=== PATIENT | female | born 1935 | race Caucasian/White ===

== ENCOUNTER 2018-06-22 21:09 | Emergency (ER) | payer MEDICARE, OTHER ==
[2018-06-22] MEDS ORDERED: Albuterol 0.083% 2.5 MG/3 ML Neb Soln NEB ONE (21:37)
--- NOTE | 2018-06-22 21:44 | EDM.PDOC ---
ED HPI GENERAL MEDICAL PROBLEM - General Chief Complaint: Respiratory Problem Stated Complaint: SOB Time Seen by Provider: 06/22/18 21:39 Source of Information: Reports: Patient, Family History Limitations: Reports: No Limitations - History of Present Illness INITIAL COMMENTS - FREE TEXT/NARRATIVE: Presents with SOB x 2 days with slight cough. No h/o CAD, HF or COPD. Denies chest pain. Onset Date: 06/21/18 Duration: Day(s): (2) Severity: Moderate Improves with: Reports: None Worsens with: Reports: None - Related Data Allergies Allergy/AdvReac Type Severity Reaction Status Date / Time Sulfa (Sulfonamide Allergy Cannot Verified 06/22/18 21:30 Antibiotics) Remember Home Meds: Home Meds Amitriptyline [Elavil] 20 mg PO BEDTIME 03/26/16 [History] Aspirin [Halfprin] 81 mg PO DAILY 03/26/16 [History] Calcium Carbonate [Calcium] 500 mg PO BID 03/26/16 [History] ClomiPRAMINE [ClomiPRAMINE HCl] 25 mg PO BEDTIME 03/26/16 [History] ClomiPRAMINE [ClomiPRAMINE HCl] 50 mg PO BID 03/26/16 [History] Ferrous Gluconate 325 mg PO DAILY 03/26/16 [History] Levothyroxine 25 mcg PO DAILY@0600 03/26/16 [History] Melatonin 10 mg PO BEDTIME 03/26/16 [History] Multivitamin [Daily Violeta] 1 tab PO DAILY 03/26/16 [History] Omeprazole 20 mg PO ACBREAKFAST 03/26/16 [History] Simvastatin [Zocor] 20 mg PO BEDTIME 03/26/16 [History] amLODIPine [Norvasc] 5 mg PO DAILY 03/26/16 [History] SitaGLIPtin [Januvia] 25 mg PO DAILY #30 tablet 03/31/16 [Rx] Past Medical History Cardiovascular History: Reports: High Cholesterol, Hypertension, Other (See Below) (Heart murmur). Denies: CAD, Heart Failure, [place] Respiratory History: Reports: None Psychiatric History: Reports: Depression Endocrine/Metabolic History: Reports: Diabetes, Type II, Hypothyroidism Dermatologic History: Reports: Eczema, Other (See Below) Other Dermatologic History: had for a long time - Infectious Disease History Infectious Disease History: Reports: Chicken Pox, Influenza, Measles - Past Surgical History HEENT Surgical History: Reports: Cataract Surgery Social & Family History - Family History Family Medical History: Noncontributory - Tobacco Use Smoking Status *Q: Never Smoker ED ROS GENERAL - Review of Systems Review Of Systems: ROS reveals no pertinent complaints other than HPI. ED EXAM, GENERAL - Physical Exam Exam: See Below Exam Limited By: No Limitations General Appearance: Alert, WD/WN, No Apparent Distress Ears: Normal External Exam Nose: Normal Inspection Throat/Mouth: No Airway Compromise Head: Atraumatic, Normocephalic Neck: Full Range of Motion Respiratory/Chest: No Respiratory Distress, Decreased Breath Sounds, Wheezing Cardiovascular: Regular Rate, Rhythm, No Edema, Systolic Murmur GI/Abdominal: No Distention Extremities: Normal Range of Motion, No Pedal Edema Neurological: Alert, Normal Cognition, No Motor/Sensory Deficits Skin Exam: Warm, Dry, Intact, Normal Color EKG INTERPRETATION EKG Date: 06/22/18 Time: 22:18 Rhythm: NSR Rate (Beats/Min): 72 [place]: Normal P-Wave: Present QRS: Normal ST-T: Normal QT: Normal Comparison: No Change (03/25/16) Course - Orders/Labs/Meds Orders: Active Orders 24 hr Category Date Time Status EKG Documentation Completion [RC] ASDIRECTED Care 06/22/18 21:37 Active RT Aerosol Therapy [RC] ASDIRECTED Care 06/22/18 21:37 Active CXR [Chest 2V] [CR] Stat Exams 06/22/18 21:12 Taken CULTURE BLOOD [BC] Urgent Lab 06/22/18 21:45 Received CULTURE BLOOD [BC] Urgent Lab 06/22/18 21:50 Received Blood Culture x2 Reflex Set [OM.PC] Urgent Oth 06/22/18 21:37 Ordered EKG 12 Lead [EK] Stat Ther 06/22/18 21:36 Ordered Labs: Laboratory Tests 06/22/18 06/22/18 06/22/18 Range/Units 21:45 21:45 21:45 WBC 7.2 (4.5-12.0) X10-3/uL RBC 3.79 (3.23-5.20) x10(6)uL Hgb 11.8 (11.5-15.5) g/dL Hct 34.3 (30.0-51.3) % MCV 90.5 (80-96) fL MCH 31.1 (27.7-33.6) pg MCHC 34.4 (32.2-35.4) g/dL RDW 13.3 (11.5-15.5) % Plt Count 213 (125-369) X10(3)uL MPV 8.4 (7.4-10.4) fL Neut % (Auto) 52.9 (46-82) % Lymph % (Auto) 31.6 (13-37) % [place] % (Auto) 10.7 (4-12) % Eos % (Auto) 4 (1.0-5.0) % Baso % (Auto) 1 (0-2) % Neut # (Auto) 3.8 (1.6-8.3) # Lymph # (Auto) 2.3 (0.6-5.0) # [place] # (Auto) 0.8 (0.0-1.3) # Eos # (Auto) 0.3 (0.0-0.8) # Baso # (Auto) 0.0 (0.0-0.2) # Sodium 134 L (135-145) mmol/L Potassium 4.5 (3.5-5.3) mmol/L Chloride 99 L (100-110) mmol/L Carbon Dioxide 28 (21-32) mmol/L BUN 37 H (7-18) mg/dL Creatinine 0.9 (0.55-1.02) mg/dL Est Cr Clr Drug Dosing TNP Estimated GFR (MDRD) > 60 (>60) BUN/Creatinine Ratio 41.1 H (9-20) Glucose 185 H (80-116) mg/dL Calcium 8.9 (8.6-10.2) mg/dL Total Bilirubin 0.2 (0.1-1.3) mg/dL AST 15 (5-25) IU/L ALT 23 (12-36) U/L Alkaline Phosphatase 63 (56-112) IU/L Troponin I < 0.017 L (<0.017-0.056) ng/mL NT-Pro-B Natriuret Pep 185 (<=450) pg/mL Total Protein 7.4 (6.0-8.0) g/dL Albumin 3.4 (3.2-4.6) g/dL Globulin 4.0 g/dL Albumin/Globulin Ratio 0.9 Meds: Medications Discontinued Medications Generic Name Dose Route Start Last Admin Trade Name Freq PRN Reason Stop Dose Admin Albuterol 2.5 mg 06/22/18 21:37 Proventil Neb Soln NEB 06/22/18 21:38 ONETIME ONE - Radiology Interpretation Free Text/Narrative:: CXR: NAD - Re-Assessments/Exams Free Text/Narrative Re-Assessment/Exam: 06/22/18 22:39 Symptoms resolved. Lungs CTA bilaterally on re-examination. 06/22/18 22:42 Ventolin inhaler dispensed in the ED Departure - Departure Time of Disposition: 22:40 Disposition: Home, Self-Care 01 Condition: Good Clinical Impression: Bronchospasm - Discharge Information *PRESCRIPTION DRUG MONITORING PROGRAM REVIEWED*: No *COPY OF PRESCRIPTION DRUG MONITORING REPORT IN PATIENT EARNESTINE: Not Applicable Instructions: Bronchospasm, Adult, [id number] Referrals: Jhoan Rivera MD [Primary Care Provider] - Forms: ED Department Discharge Additional Instructions: Use the inhaler 2 puffs every 4 hours as needed for shortness of breath. Follow up with your doctor in 2-3 days. Return to the ER if symptoms worsen. - My Orders Last 24 Hours: My Active Orders 06/22/18 21:12 CXR [Chest 2V] [CR] Stat 06/22/18 21:36 EKG 12 Lead [EK] Stat 06/22/18 21:37 EKG Documentation Completion [RC] ASDIRECTED RT Aerosol Therapy [RC] ASDIRECTED Blood Culture x2 Reflex Set [OM.PC] Urgent 06/22/18 21:45 CULTURE BLOOD [BC] Urgent 06/22/18 21:50 CULTURE BLOOD [BC] Urgent - Assessment/Plan Last 24 Hours: My Active Orders 06/22/18 21:12 CXR [Chest 2V] [CR] Stat 06/22/18 21:36 EKG 12 Lead [EK] Stat 06/22/18 21:37 EKG Documentation Completion [RC] ASDIRECTED RT Aerosol Therapy [RC] ASDIRECTED Blood Culture x2 Reflex Set [OM.PC] Urgent 06/22/18 21:45 CULTURE BLOOD [BC] Urgent 06/22/18 21:50 CULTURE BLOOD [BC] Urgent
[2018-06-23 00:10] VITALS: BP 134/61
== END 2018-06-22 22:58 | disposition home or self-care (01) ==
LOC: FB.ED 21:09
DX: J98.01 Acute bronchospasm (principal); I10 Essential (primary) hypertension; E11.9 Type 2 diabetes mellitus without complications; E03.9 Hypothyroidism, unspecified; Z88.2 Allergy status to sulfonamides; Z79.82 Long term (current) use of aspirin; Z79.899 Other long term (current) drug therapy
CPT/HCPCS: 36415; 71046; 80053; 83880; 84484; 85025; 87040; 93005; 94640; 99285

== ENCOUNTER 2018-12-25 10:32 | Inpatient (IN) | payer MEDICARE ==
[2018-12-25] MEDS ORDERED: Albuterol 0.083% 2.5 MG/3 ML Neb Soln NEB ONE (10:53)
--- NOTE | 2018-12-25 10:57 | EDM.PDOC ---
ED HPI GENERAL MEDICAL PROBLEM - General Chief Complaint: Respiratory Problem Stated Complaint: SOB Time Seen by Provider: 12/25/18 10:53 Source of Information: Reports: Patient History Limitations: Reports: No Limitations - History of Present Illness INITIAL COMMENTS - FREE TEXT/NARRATIVE: Presents with SOB x 3 days, denies chest discomfort or cough. No F/C. Onset Date: 12/22/18 Duration: Day(s): (3) Severity: Moderate - Related Data Allergies Allergy/AdvReac Type Severity Reaction Status Date / Time Sulfa (Sulfonamide Allergy Cannot Verified 12/25/18 12:51 Antibiotics) Remember Home Meds: Home Meds Amitriptyline [Elavil] 20 mg PO BEDTIME 03/26/16 [History] Aspirin [Halfprin] 81 mg PO DAILY 03/26/16 [History] ClomiPRAMINE [ClomiPRAMINE HCl] 25 mg PO BEDTIME 03/26/16 [History] ClomiPRAMINE [ClomiPRAMINE HCl] 50 mg PO BID 03/26/16 [History] Ferrous Gluconate 325 mg PO WITHBREAKFAST 03/26/16 [History] Levothyroxine 25 mcg PO DAILY@0600 03/26/16 [History] Multivitamin [Daily Violeta] 1 tab PO DAILY 03/26/16 [History] Omeprazole 20 mg PO ACBREAKFAST 03/26/16 [History] Simvastatin [Zocor] 20 mg PO BEDTIME 03/26/16 [History] amLODIPine [Norvasc] 5 mg PO DAILY 03/26/16 [History] SitaGLIPtin [Januvia] 25 mg PO DAILY #30 tablet 03/31/16 [Rx] Albuterol [Ventolin HFA] 2 puff INH Q4H PRN #1 inhaler 06/22/18 [Rx] Acetaminophen [Tylenol] 325 - 650 mg PO Q4H PRN 12/25/18 [History] Calcium Carbonate/Vitamin D3 [Calcium 600 + Vit D 200] 1 tab PO BIDMEALS [History] Ciclopirox [Loprox 0.77% Crm] 1 applic TOP BID PRN 12/25/18 [History] Enalapril [Vasotec] 5 mg PO DAILY 12/25/18 [History] Fluocinolone Acetonide 1 applic TOP BID PRN 12/25/18 [History] Fluorometholone [Fluorometholone 0.1% Ophth Susp] 1 drop EYEBOTH DAILY 12/25/18 [History] Latanoprost [Xalatan 0.005% Ophth Soln] 1 drop EYEBOTH BEDTIME 12/25/18 [History ] Loperamide HCl [Loperamide] 2 - 4 mg PO ASDIRECTED PRN 12/25/18 [History] Melatonin 6 mg PO BEDTIME 12/25/18 [History] Polyethylene Glycol 3350 [MiraLAX] 17 gm PO DAILY PRN 12/25/18 [History] Potassium Chloride 10 meq PO DAILY 12/25/18 [History] Triamcinolone Acetonide [Triamcinolone Acetonide 0.1% Crm] 1 applic TOP TID PRN 12/25/18 [History] Past Medical History Cardiovascular History: Reports: High Cholesterol, Hypertension, Other (See Below) (Heart murmur). Denies: CAD, Heart Failure, [place] Respiratory History: Reports: None Psychiatric History: Reports: Depression Endocrine/Metabolic History: Reports: Diabetes, Type II, Hypothyroidism Dermatologic History: Reports: Eczema, Other (See Below) Other Dermatologic History: had for a long time - Infectious Disease History Infectious Disease History: Reports: Chicken Pox, Influenza, Measles - Past Surgical History HEENT Surgical History: Reports: Cataract Surgery Social & Family History - Family History Family Medical History: Noncontributory - Tobacco Use Smoking Status *Q: Former Smoker Tobacco Use Within Last Twelve Months: No ED ROS GENERAL - Review of Systems Review Of Systems: ROS reveals no pertinent complaints other than HPI. ED EXAM, GENERAL - Physical Exam Exam: See Below Exam Limited By: No Limitations General Appearance: Alert, WD/WN, No Apparent Distress Ears: Normal External Exam Nose: Normal Inspection Throat/Mouth: No Airway Compromise Head: Atraumatic, Normocephalic Neck: Supple Respiratory/Chest: No Respiratory Distress, Lungs Clear, Normal Breath Sounds Cardiovascular: Regular Rate, Rhythm, No Murmur GI/Abdominal: Soft, Non-Tender, No Distention Extremities: Normal Range of Motion, No Pedal Edema, Other (mild bilat calf tenderness) Neurological: Alert, Normal Cognition, No Motor/Sensory Deficits Psychiatric: Normal Affect, Normal Mood Skin Exam: Warm, Dry, Intact EKG INTERPRETATION EKG Date: 12/25/18 Time: 10:54 Rhythm: A-Fib Rate (Beats/Min): 74 [place]: Normal P-Wave: Absent QRS: Normal ST-T: Other (borderline repol abnormality diffuse leads) QT: Normal Course - Vital Signs Last Recorded V/S: Last Vital Signs Temp Pulse 75 12/25/18 11:32 Resp BP 152/56 H 12/25/18 12:31 Pulse Ox 98 12/25/18 11:32 - Orders/Labs/Meds Orders: Active Orders 24 hr Category Date Time Status Admission Diagnosis [ADT] Stat ADT 12/25/18 13:48 Ordered EKG Documentation Completion [RC] ASDIRECTED Care 12/25/18 10:52 Active CULTURE BLOOD [BC] Urgent Lab 12/25/18 13:38 Received CULTURE BLOOD [BC] Urgent Lab 12/25/18 14:10 Received Sodium Chloride 0.9% [Saline Flush] Med 12/25/18 10:52 Active 10 ml FLUSH ASDIRECTED PRN Blood Culture x2 Reflex Set [OM.PC] Urgent Oth 12/25/18 13:38 Ordered Saline Lock Insert [OM.PC] Routine Oth 12/25/18 10:52 Ordered EKG 12 Lead [EK] Stat Ther 12/25/18 10:51 Ordered Medication Orders Albuterol (Proventil Neb Soln) 2.5 mg NEB Q4H PRN PRN Reason: Shortness of Breath Amitriptyline HCl (Elavil) 20 mg PO BEDTIME [facility] Amlodipine Besylate (Norvasc) 5 mg PO DAILY [facility] Aspirin (Halfprin) 81 mg PO DAILY [facility] Azithromycin (Zithromax) 250 mg PO DAILY@1400 [facility] Stop: 12/30/18 14:01 Ceftriaxone Sodium (Rocephin) 2 gm IVPUSH Q24H [facility] Ciclopirox Olamine (Loprox 0.77% Crm) 0 gm TOP BID PRN PRN Reason: rash/itching Fluorometholone (Flarex 0.1% Ophth Susp) 0 ml EYEBOTH DAILY [facility] Furosemide (Lasix) 20 mg IVPUSH DAILY [facility] Latanoprost (Xalatan 0.005% Ophth Soln) 0 ml EYEBOTH BEDTIME [facility] Levothyroxine Sodium (Levothyroxine) 25 mcg PO DAILY@0600 [facility] Lisinopril (Prinivil) 2.5 mg PO DAILY [facility] Melatonin (Melatonin) 6 mg PO BEDTIME [facility] Multivitamins/Minerals/Vitamin C (Tab-A-Violeta) 1 tab PO DAILY JOHN Non-Formulary Medication (Clomipramine [Clomipramine Hcl]) 25 mg PO BEDTIME JOHN Non-Formulary Medication (Clomipramine [Clomipramine Hcl]) 50 mg PO BID [facility] Pantoprazole Sodium (Protonix) 40 mg PO DAILY@0600 [facility] Potassium Chloride (Klor-Con 10) 10 meq PO DAILY [facility] Rivaroxaban (Xarelto) 15 mg PO WITHDINNER JOHN Simvastatin (Zocor) 20 mg PO BEDTIME [facility] Sitagliptin Phosphate (Januvia) 25 mg PO DAILY [facility] Sodium Chloride (Saline Flush) 10 ml FLUSH ASDIRECTED PRN PRN Reason: Keep Vein Open Last Admin: 12/25/18 12:48 Dose: 10 ml Admin: 12/25/18 11:43 Dose: 10 ml Labs: Laboratory Tests 12/25/18 12/25/18 12/25/18 Range/Units 11:15 11:15 11:15 WBC 9.4 (4.5-12.0) X10-3/uL RBC 3.79 (3.23-5.20) x10(6)uL Hgb 11.5 (11.5-15.5) g/dL Hct 34.8 (30.0-51.3) % MCV 91.7 (80-96) fL MCH 30.4 (27.7-33.6) pg MCHC 33.1 (32.2-35.4) g/dL RDW 14.1 (11.5-15.5) % Plt Count 224 (125-369) X10(3)uL MPV 8.4 (7.4-10.4) fL Neut % (Auto) 79.3 (46-82) % Lymph % (Auto) 11.1 L (13-37) % [place] % (Auto) 7.1 (4-12) % Eos % (Auto) 2 (1.0-5.0) % Baso % (Auto) 1 (0-2) % Neut # (Auto) 7.5 (1.6-8.3) # Lymph # (Auto) 1.0 (0.6-5.0) # [place] # (Auto) 0.7 (0.0-1.3) # Eos # (Auto) 0.2 (0.0-0.8) # Baso # (Auto) 0.0 (0.0-0.2) # PT 10.4 (8.7-11.1) INR 1.07 (0.89-1.13) APTT 25.3 (24.4-33.2) SECONDS D-Dimer, Quantitative 1.08 H (0.0-0.59) mg/LFEU Sodium 135 (135-145) mmol/L Potassium 5.1 (3.5-5.3) mmol/L Chloride 99 L (100-110) mmol/L Carbon Dioxide 29 (21-32) mmol/L BUN 21 H D (7-18) mg/dL Creatinine 1.0 (0.55-1.02) mg/dL Est Cr Clr Drug Dosing TNP Estimated GFR (MDRD) 53 L (>60) BUN/Creatinine Ratio 21.0 H (9-20) Glucose 128 H (80-116) mg/dL Lactic Acid (0.4-2.2) mmol/L Calcium 9.1 (8.6-10.2) mg/dL Total Bilirubin 0.3 (0.1-1.3) mg/dL AST 14 (5-25) IU/L ALT 20 D (12-36) U/L Alkaline Phosphatase 58 (56-112) IU/L Troponin I (<0.017-0.056) ng/mL NT-Pro-B Natriuret Pep (<=450) pg/mL Total Protein 6.8 (6.0-8.0) g/dL Albumin 3.5 (3.2-4.6) g/dL Globulin 3.3 g/dL Albumin/Globulin Ratio 1.1 TSH, Ultra Sensitive (0.36-3.74) IU/mL 12/25/18 12/25/18 12/25/18 Range/Units 11:15 11:15 14:10 WBC (4.5-12.0) X10-3/uL RBC (3.23-5.20) x10(6)uL Hgb (11.5-15.5) g/dL Hct (30.0-51.3) % MCV (80-96) fL MCH (27.7-33.6) pg MCHC (32.2-35.4) g/dL RDW (11.5-15.5) % Plt Count (125-369) X10(3)uL MPV (7.4-10.4) fL Neut % (Auto) (46-82) % Lymph % (Auto) (13-37) % [place] % (Auto) (4-12) % Eos % (Auto) (1.0-5.0) % Baso % (Auto) (0-2) % Neut # (Auto) (1.6-8.3) # Lymph # (Auto) (0.6-5.0) # [place] # (Auto) (0.0-1.3) # Eos # (Auto) (0.0-0.8) # Baso # (Auto) (0.0-0.2) # PT (8.7-11.1) INR (0.89-1.13) APTT (24.4-33.2) SECONDS D-Dimer, Quantitative (0.0-0.59) mg/LFEU Sodium (135-145) mmol/L Potassium (3.5-5.3) mmol/L Chloride (100-110) mmol/L Carbon Dioxide (21-32) mmol/L BUN (7-18) mg/dL Creatinine (0.55-1.02) mg/dL Est Cr Clr Drug Dosing Estimated GFR (MDRD) (>60) BUN/Creatinine Ratio (9-20) Glucose (80-116) mg/dL Lactic Acid 1.2 (0.4-2.2) mmol/L Calcium (8.6-10.2) mg/dL Total Bilirubin (0.1-1.3) mg/dL AST (5-25) IU/L ALT (12-36) U/L Alkaline Phosphatase (56-112) IU/L Troponin I < 0.017 L (<0.017-0.056) ng/mL NT-Pro-B Natriuret Pep 1254 H* (<=450) pg/mL Total Protein (6.0-8.0) g/dL Albumin (3.2-4.6) g/dL Globulin g/dL Albumin/Globulin Ratio TSH, Ultra Sensitive 1.82 (0.36-3.74) IU/mL Meds: Medications Generic Name Dose Route Start Last Admin Trade Name Freq PRN Reason Stop Dose Admin Albuterol 2.5 mg 12/25/18 14:26 Proventil Neb Soln NEB Q4H PRN Shortness of Breath Amitriptyline HCl 20 mg 12/25/18 21:00 Elavil PO BEDTIME [facility] Amlodipine Besylate 5 mg 12/26/18 09:00 Norvasc PO DAILY [facility] Aspirin 81 mg 12/26/18 09:00 Halfprin PO DAILY [facility] Azithromycin 250 mg 12/26/18 14:00 Zithromax PO 12/30/18 14:01 DAILY@1400 [facility] Ceftriaxone Sodium 2 gm 12/25/18 14:30 Rocephin IVPUSH Q24H [facility] Ciclopirox Olamine 0 gm 12/25/18 14:22 Loprox 0.77% Crm TOP BID PRN rash/itching Fluorometholone 0 ml 12/26/18 09:00 Flarex 0.1% Ophth Susp EYEBOTH DAILY [facility] Furosemide 20 mg 12/26/18 09:00 Lasix IVPUSH DAILY [facility] Latanoprost 0 ml 12/25/18 21:00 Xalatan 0.005% Ophth Soln EYEBOTH BEDTIME [facility] Levothyroxine Sodium 25 mcg 12/26/18 06:00 Levothyroxine PO DAILY@0600 [facility] Lisinopril 2.5 mg 12/26/18 09:00 Prinivil PO DAILY [facility] Melatonin 6 mg 12/25/18 21:00 Melatonin PO BEDTIME [facility] Multivitamins/Minerals/Vitamin C 1 tab 12/26/18 09:00 Tab-A-Violeta PO DAILY [facility] Non-Formulary Medication 25 mg 12/25/18 21:00 Clomipramine [Clomipramine Hcl] PO BEDTIME [facility] Non-Formulary Medication 50 mg 12/25/18 21:00 Clomipramine [Clomipramine Hcl] PO BID [facility] Pantoprazole Sodium 40 mg 12/26/18 06:00 Protonix PO DAILY@0600 [facility] Potassium Chloride 10 meq 12/26/18 09:00 Klor-Con 10 PO DAILY [facility] Rivaroxaban 15 mg 12/25/18 18:00 Xarelto PO WITHDINNER [facility] Simvastatin 20 mg 12/25/18 21:00 Zocor PO BEDTIME [facility] Sitagliptin Phosphate 25 mg 12/26/18 09:00 Januvia PO DAILY [facility] Sodium Chloride 10 ml 12/25/18 10:52 12/25/18 12:48 Saline Flush FLUSH 10 ml ASDIRECTED PRN Administration Keep Vein Open Discontinued Medications Generic Name Dose Route Start Last Admin Trade Name Freq PRN Reason Stop Dose Admin Albuterol 2.5 mg 12/25/18 10:53 12/25/18 11:32 Proventil Neb Soln NEB 12/25/18 10:54 2.5 mg ONETIME ONE Administration Azithromycin 500 mg 12/25/18 14:19 Zithromax PO 12/25/18 14:20 ONETIME ONE Furosemide 40 mg 12/25/18 12:13 12/25/18 12:31 Lasix IVPUSH 12/25/18 12:14 40 mg NOW ONE Administration Iopamidol 100 ml 12/25/18 13:01 12/25/18 13:05 Isovue-370 (76%) IV 12/25/18 13:02 85 ml . DIRECTED ONE Administration Lisinopril 2.5 mg 12/25/18 12:17 12/25/18 12:31 Prinivil PO 12/25/18 12:18 2.5 mg .ONCE ONE Administration - Radiology Interpretation Free Text/Narrative:: CTA Chest: No pulmonary emboli. +COPD. Possible LLL infiltrate. (per Dr. Ramos) Departure - Departure Time of Disposition: 14:00 Disposition: Admitted As Inpatient 68 Condition: Fair Clinical Impression: New onset atrial fibrillation, New onset of congestive heart failure Pneumonia Qualifiers: Pneumonia type: due to unspecified organism Laterality: left Lung location: lower lobe of lung Qualified Code(s): J18.1 - Lobar pneumonia, unspecified organism - Discharge Information *PRESCRIPTION DRUG MONITORING PROGRAM REVIEWED*: No *COPY OF PRESCRIPTION DRUG MONITORING REPORT IN PATIENT EARNESTINE: Not Applicable - My Orders Last 24 Hours: My Active Orders 12/25/18 10:51 EKG 12 Lead [EK] Stat 12/25/18 10:52 EKG Documentation Completion [RC] ASDIRECTED Sodium Chloride 0.9% [Saline Flush] 10 ml FLUSH ASDIRECTED PRN Saline Lock Insert [OM.PC] Routine 12/25/18 13:38 CULTURE BLOOD [BC] Urgent Blood Culture x2 Reflex Set [OM.PC] Urgent 12/25/18 13:48 Admission Diagnosis [ADT] Stat 12/25/18 14:10 CULTURE BLOOD [BC] Urgent - Assessment/Plan Last 24 Hours: My Active Orders 12/25/18 10:51 EKG 12 Lead [EK] Stat 12/25/18 10:52 EKG Documentation Completion [RC] ASDIRECTED Sodium Chloride 0.9% [Saline Flush] 10 ml FLUSH ASDIRECTED PRN Saline Lock Insert [OM.PC] Routine 12/25/18 13:38 CULTURE BLOOD [BC] Urgent Blood Culture x2 Reflex Set [OM.PC] Urgent 12/25/18 13:48 Admission Diagnosis [ADT] Stat 12/25/18 14:10 CULTURE BLOOD [BC] Urgent
[2018-12-25] MEDS: Sodium Chloride 0.9% 10 ML Syringe FLUSH PRN ×2 (11:43→12:48)
[2018-12-25] MEDS ORDERED: Furosemide 40 MG/4 ML VIAL IVPUSH ONE (12:13)
[2018-12-25] MEDS ORDERED: Lisinopril 2.5 MG Tab PO ONE (12:17)
[2018-12-25] MEDS ORDERED: Iopamidol 755 Mg/ML 100 ML Bottle IV ONE (13:01)
--- NOTE | 2018-12-25 13:43 | CR ---
INDICATION: Short of breath. CHEST: An AP upright view of the chest was obtained 12/25/18 and compared with 06/22/18 and 03/25/16. The heart is enlarged in general. The aorta is calcified in the arch area. Overlying EKG leads are noted. A moderately severe dextroconvex scoliosis of the thoracic spine is noted, mid to lower. Findings suggesting COPD are noted. Rather heavy markings are noted at the lung bases, making it difficult to exclude areas of patchy bronchopneumonia, especially at the left costophrenic angle. No definite evidence of CHF is seen. Evidence of exogenous obesity is noted. IMPRESSION: 1. No definite acute process but difficult to exclude areas of patchy bronchopneumonia at both lung bases. Marking are somewhat heavier than previous studies at the right lung base but similar on the left. 2. COPD. 3. ASHD with cardiomegaly. 4. Scoliosis. MTDD
--- NOTE | 2018-12-25 14:05 | CT ---
INDICATION: Shortness of breath. COMPUTERIZED TOMOGRAPHY ANGIOGRAPHY OF THE CHEST WITH CONTRAST: Spiral 1.25 mm axial sections were obtained through the chest with PE protocol, utilizing 85 mL Isovue 370 at 3 mL/second, with sagittal and coronal reconstructions. Comparison chest is noted 06/22/18 and 12/25/18. Total exam DLP = 992.62 mGy- cm. Minimal patchy infiltrate - pneumonia may be present at the left lower lobe. No gross evidence of CHF is identified, although the heart is somewhat prominent in size. There are minimal coronary artery calcifications. No mediastinal mass was identified. No gross abnormality is seen in the upper abdomen, except to note arterial calcifications in the aorta, splenic artery, superior mesenteric artery, and at the origin of the celiac axis. Renal cortical scarring is noted of mild degree. There appears to have been some motion, limiting some detail of the kidneys. A dextroconvex scoliosis of moderately severe degree is noted at the mid to lower thoracic spine with dextroconcave rotoscoliosis in the lumbar spine. No evidence of pulmonary emboli or definite mass lesions could be identified in the lungs, pleural spaces, or mediastinum. IMPRESSION: 1. No evidence of PE. 2. Suggestion of minimal pneumonia and possibly pleuritis at the left lower lobe. 3. ASHD with cardiomegaly and no definite CHF. 4. Probable COPD. 5. Scoliosis. Report was called to Dr. Saul at 1340 hours on 12/25/18. [facility]
[2018-12-25] MEDS ORDERED: Azithromycin 500 MG Tab PO ONE (14:19)
[2018-12-25] MEDS ORDERED: Ciclopirox 0.77% Crm 15 GM Tube TOP PRN (14:22)
[2018-12-25] MEDS ORDERED: Albuterol 0.083% 2.5 MG/3 ML Neb Soln NEB PRN (14:26)
[2018-12-25] MEDS ORDERED: cefTRIAXone 2 GM in Sodium Chloride 0.9% 100 ML IVPUSH SCH (14:30)
[2018-12-25] MEDS ORDERED: cefTRIAXone 2 GM Vial IVPUSH SCH (14:30)
--- NOTE | 2018-12-25 17:11 | PCM.HP ---
H&P History of Present Illness - General Date of Service: 12/25/18 Admit Problem/Dx: Admission Diagnosis/Problem Admission Diagnosis/Problem CHF, Congestive heart failure Source of Information: Patient, Old Records History Limitations: Reports: No Limitations - History of Present Illness Initial Comments - Free Text/Narative: 83-year-old female complaining of shortness of breath lasting about 3 days.Sudden onset,and on exertion. Associated with some irregular heartbeat, but no upper respiratory symptoms or chest pain. She has a history of type 2 diabetes, hypertension and a heart murmur that are previously stable. The ER an EKG done revealed atrial fibrillation which is new onset, and a chest CT revealed some minimal pneumonia. - Related Data Allergies/Adverse Reactions: Allergies Allergy/AdvReac Type Severity Reaction Status Date / Time Sulfa (Sulfonamide Allergy Cannot Verified 12/25/18 12:51 Antibiotics) Remember Home Medications: Home Meds Amitriptyline [Elavil] 20 mg PO BEDTIME 03/26/16 [History] Aspirin [Halfprin] 81 mg PO DAILY 03/26/16 [History] ClomiPRAMINE [ClomiPRAMINE HCl] 25 mg PO BEDTIME 03/26/16 [History] ClomiPRAMINE [ClomiPRAMINE HCl] 50 mg PO BID 03/26/16 [History] Ferrous Gluconate 325 mg PO WITHBREAKFAST 03/26/16 [History] Levothyroxine 25 mcg PO DAILY@0600 03/26/16 [History] Multivitamin [Daily Violeta] 1 tab PO DAILY 03/26/16 [History] Omeprazole 20 mg PO ACBREAKFAST 03/26/16 [History] Simvastatin [Zocor] 20 mg PO BEDTIME 03/26/16 [History] amLODIPine [Norvasc] 5 mg PO DAILY 03/26/16 [History] SitaGLIPtin [Januvia] 25 mg PO DAILY #30 tablet 03/31/16 [Rx] Albuterol [Ventolin HFA] 2 puff INH Q4H PRN #1 inhaler 06/22/18 [Rx] Acetaminophen [Tylenol] 325 - 650 mg PO Q4H PRN 12/25/18 [History] Calcium Carbonate/Vitamin D3 [Calcium 600 + Vit D 200] 1 tab PO BIDMEALS [History] Ciclopirox [Loprox 0.77% Crm] 1 applic TOP BID PRN 12/25/18 [History] Enalapril [Vasotec] 5 mg PO DAILY 12/25/18 [History] Fluocinolone Acetonide 1 applic TOP BID PRN 12/25/18 [History] Fluorometholone [Fluorometholone 0.1% Ophth Susp] 1 drop EYEBOTH DAILY 12/25/18 [History] Latanoprost [Xalatan 0.005% Ophth Soln] 1 drop EYEBOTH BEDTIME 12/25/18 [History ] Loperamide HCl [Loperamide] 2 - 4 mg PO ASDIRECTED PRN 12/25/18 [History] Melatonin 6 mg PO BEDTIME 12/25/18 [History] Polyethylene Glycol 3350 [MiraLAX] 17 gm PO DAILY PRN 12/25/18 [History] Potassium Chloride 10 meq PO DAILY 12/25/18 [History] Triamcinolone Acetonide [Triamcinolone Acetonide 0.1% Crm] 1 applic TOP TID PRN 12/25/18 [History] Past Medical History Cardiovascular History: Reports: High Cholesterol, Hypertension, Other (See Below) (Heart murmur). Denies: CAD, Heart Failure, [place] Respiratory History: Reports: None Gastrointestinal History: Reports: Other (See Below) Other Gastrointestinal History: Colitis Genitourinary History: Reports: Urinary Incontinence [employer] History: Reports: Musculoskeletal History: Reports: Arthritis, Fracture Neurological History: Reports: TIA Psychiatric History: Reports: Depression Endocrine/Metabolic History: Reports: Diabetes, Type II, Hypothyroidism Dermatologic History: Reports: Eczema, Other (See Below) Other Dermatologic History: had for a long time - Infectious Disease History Infectious Disease History: Reports: Chicken Pox, Influenza, Measles - Past Surgical History HEENT Surgical History: Reports: Cataract Surgery Social & Family History - Family History Family Medical History: Noncontributory - Tobacco Use Smoking Status *Q: Former Smoker Second Hand Smoke Exposure: No - Caffeine Use Caffeine Use: Reports: Coffee, Soda - Recreational Drug Use Recreational Drug Use: No H&P Review of Systems - Review of Systems: Review Of Systems: ROS reveals no pertinent complaints other than HPI. Exam - Exam Exam: See Below - Vital Signs Vital Signs: Last Vital Signs Temp Pulse 75 12/25/18 11:32 Resp BP 152/56 H 12/25/18 12:31 Pulse Ox 98 12/25/18 11:32 Weight: 97.976 kg - Exam General: Alert, Oriented, 4 HEENT: PERRLA, Hearing Intact, Mucosa Moist & [place], Nares Patent, Normal Nasal Septum, Posterior Pharynx Clear, Conjunctiva Clear, EOMI, EACs Clear, TMs Clear Neck: Supple, Trachea Midline, 2 Lungs: Clear to Auscultation, Normal Respiratory Effort Cardiovascular: Irregular Rhythm, Systolic Murmur GI/Abdominal Exam: Normal Bowel Sounds, Soft, Non-Tender, No Organomegaly, No Distention, No Abnormal Bruit, No Mass, Pelvis Stable (Female) Exam: Deferred Rectal (Female) Exam: Deferred Back Exam: Normal Inspection, Full Range of Motion, NT Extremities: Normal Inspection, Normal Range of Motion, Non-Tender, No Pedal Edema, Normal Capillary Refill Skin: Warm, Dry, Intact Neurological: Cranial Nerves Intact, Reflexes Equal Bilateral Neuro Extensive - Mental Status: Alert, Oriented x3, Normal Mood/Affect, Normal Cognition Neuro Extensive - Motor, Sensory, Reflexes: CN II-XII Intact, Normal Gait, Normal Reflexes Psychiatric: Alert, Normal Affect, Normal Mood - Patient Data Lab Results Last 24 hrs: Laboratory Results - last 24 hr 12/25/18 12/25/18 12/25/18 Range/Units 11:15 11:15 11:15 WBC 9.4 (4.5-12.0) X10-3/uL RBC 3.79 (3.23-5.20) x10(6)uL Hgb 11.5 (11.5-15.5) g/dL Hct 34.8 (30.0-51.3) % MCV 91.7 (80-96) fL MCH 30.4 (27.7-33.6) pg MCHC 33.1 (32.2-35.4) g/dL RDW 14.1 (11.5-15.5) % Plt Count 224 (125-369) X10(3)uL MPV 8.4 (7.4-10.4) fL Neut % (Auto) 79.3 (46-82) % Lymph % (Auto) 11.1 L (13-37) % [place] % (Auto) 7.1 (4-12) % Eos % (Auto) 2 (1.0-5.0) % Baso % (Auto) 1 (0-2) % Neut # (Auto) 7.5 (1.6-8.3) # Lymph # (Auto) 1.0 (0.6-5.0) # [place] # (Auto) 0.7 (0.0-1.3) # Eos # (Auto) 0.2 (0.0-0.8) # Baso # (Auto) 0.0 (0.0-0.2) # PT 10.4 (8.7-11.1) INR 1.07 (0.89-1.13) APTT 25.3 (24.4-33.2) SECONDS D-Dimer, Quantitative 1.08 H (0.0-0.59) mg/LFEU Sodium 135 (135-145) mmol/L Potassium 5.1 (3.5-5.3) mmol/L Chloride 99 L (100-110) mmol/L Carbon Dioxide 29 (21-32) mmol/L BUN 21 H D (7-18) mg/dL Creatinine 1.0 (0.55-1.02) mg/dL Est Cr Clr Drug Dosing TNP Estimated GFR (MDRD) 53 L (>60) BUN/Creatinine Ratio 21.0 H (9-20) Glucose 128 H (80-116) mg/dL Lactic Acid (0.4-2.2) mmol/L Calcium 9.1 (8.6-10.2) mg/dL Total Bilirubin 0.3 (0.1-1.3) mg/dL AST 14 (5-25) IU/L ALT 20 D (12-36) U/L Alkaline Phosphatase 58 (56-112) IU/L Troponin I (<0.017-0.056) ng/mL NT-Pro-B Natriuret Pep (<=450) pg/mL Total Protein 6.8 (6.0-8.0) g/dL Albumin 3.5 (3.2-4.6) g/dL Globulin 3.3 g/dL Albumin/Globulin Ratio 1.1 TSH, Ultra Sensitive (0.36-3.74) IU/mL 12/25/18 12/25/18 12/25/18 Range/Units 11:15 11:15 14:10 WBC (4.5-12.0) X10-3/uL RBC (3.23-5.20) x10(6)uL Hgb (11.5-15.5) g/dL Hct (30.0-51.3) % MCV (80-96) fL MCH (27.7-33.6) pg MCHC (32.2-35.4) g/dL RDW (11.5-15.5) % Plt Count (125-369) X10(3)uL MPV (7.4-10.4) fL Neut % (Auto) (46-82) % Lymph % (Auto) (13-37) % [place] % (Auto) (4-12) % Eos % (Auto) (1.0-5.0) % Baso % (Auto) (0-2) % Neut # (Auto) (1.6-8.3) # Lymph # (Auto) (0.6-5.0) # [place] # (Auto) (0.0-1.3) # Eos # (Auto) (0.0-0.8) # Baso # (Auto) (0.0-0.2) # PT (8.7-11.1) INR (0.89-1.13) APTT (24.4-33.2) SECONDS D-Dimer, Quantitative (0.0-0.59) mg/LFEU Sodium (135-145) mmol/L Potassium (3.5-5.3) mmol/L Chloride (100-110) mmol/L Carbon Dioxide (21-32) mmol/L BUN (7-18) mg/dL Creatinine (0.55-1.02) mg/dL Est Cr Clr Drug Dosing Estimated GFR (MDRD) (>60) BUN/Creatinine Ratio (9-20) Glucose (80-116) mg/dL Lactic Acid 1.2 (0.4-2.2) mmol/L Calcium (8.6-10.2) mg/dL Total Bilirubin (0.1-1.3) mg/dL AST (5-25) IU/L ALT (12-36) U/L Alkaline Phosphatase (56-112) IU/L Troponin I < 0.017 L (<0.017-0.056) ng/mL NT-Pro-B Natriuret Pep 1254 H* (<=450) pg/mL Total Protein (6.0-8.0) g/dL Albumin (3.2-4.6) g/dL Globulin g/dL Albumin/Globulin Ratio TSH, Ultra Sensitive 1.82 (0.36-3.74) IU/mL Result Diagrams: 12/25/18 11:15 12/25/18 11:15 Adi Results Last 24 hrs: Microbiology 12/25/18 13:45 Influenza Type A Antigen Screen - Final Nasopharyngeal Swab NEGATIVE INFLUENZA A VIRUS AG Influenza Type B Antigen Screen - Final NEGATIVE INFLUENZA B VIRUS AG EKG INTERPRETATION Rhythm: A-Fib - Problem List (1) Pneumonia SNOMED Code(s): 302536750 ICD Code: J18.9 - PNEUMONIA, UNSPECIFIED ORGANISM Status: Acute Current Visit: Yes Qualifiers: Pneumonia type: due to unspecified organism Laterality: left Lung location: lower lobe of lung Qualified Code(s): J18.1 - Lobar pneumonia, unspecified organism (2) New onset atrial fibrillation SNOMED Code(s): 50273428 ICD Code: I48.91 - UNSPECIFIED ATRIAL FIBRILLATION Status: Acute Current Visit: Yes (3) HTN (hypertension) SNOMED Code(s): 48952089 ICD Code: I10 - ESSENTIAL (PRIMARY) HYPERTENSION Status: Acute Current Visit: Yes Qualifiers: Hypertension type: essential hypertension Qualified Code(s): I10 - Essential (primary) hypertension (4) Anxiety SNOMED Code(s): 63263346 ICD Code: F41.9 - ANXIETY DISORDER, UNSPECIFIED Status: Acute Current Visit: Yes (5) Obese SNOMED Code(s): 646602158, 233239896 ICD Code: E66.9 - OBESITY, UNSPECIFIED Status: Acute Current Visit: Yes Qualifiers: Obesity type: due to excess calories (6) Palliative care patient SNOMED Code(s): 858585580 ICD Code: Z51.5 - ENCOUNTER FOR PALLIATIVE CARE Status: Acute Current Visit: Yes (7) New onset of congestive heart failure SNOMED Code(s): 97037156 ICD Code: I50.9 - HEART FAILURE, UNSPECIFIED Status: Acute Current Visit : Yes Problem List Initiated/Reviewed/Updated: Yes Orders Last 24hrs: Active Orders 24 hr Category Date Time Status Admission Diagnosis [ADT] Stat ADT 12/25/18 13:48 Ordered Patient Status [ADT] Routine ADT 12/25/18 14:12 Active Ambulate [RC] 09,16,17,21 Care 12/25/18 14:12 Active EKG Documentation Completion [RC] ASDIRECTED Care 12/25/18 10:52 Active Height and Weight [RC] 07 Care 12/25/18 14:12 Active Intake and Output [RC] 06,14,22 Care 12/25/18 14:14 Active Notify Provider Vital Signs [RC] ASDIRECTED Care 12/25/18 14:14 Active Oxygen Therapy [RC] PRN Care 12/25/18 14:12 Active Pulse Oximetry [RC] QSHIFT Care 12/25/18 14:14 Active RT Aerosol Therapy [RC] ASDIRECTED Care 12/25/18 14:27 Active Telemetry Monitoring [Cardiac Monitoring] [RC] 08,16,00 Care 12/25/18 14:22 Active Vital Signs [RC] 08,16,00 Care 12/25/18 14:12 Active Consistent Carbohydrate Diet [DIET] Diet 12/25/18 Dinner Active Echo Comp wo Cont [US] Routine Exams 12/26/18 08:00 Ordered BASIC METABOLIC PANEL,BMP [CHEM] AM Lab 12/26/18 05:11 Ordered CBC WITH AUTO DIFF [HEME] AM Lab 12/26/18 05:11 Ordered CULTURE BLOOD [BC] Urgent Lab 12/25/18 13:38 Received CULTURE BLOOD [BC] Urgent Lab 12/25/18 14:10 Received Albuterol [Proventil Neb Soln] Med 12/25/18 14:26 Active 2.5 mg NEB Q4H PRN Amitriptyline [Elavil] Med 12/25/18 21:00 Active 20 mg PO BEDTIME Aspirin [Halfprin] Med 12/26/18 09:00 Active 81 mg PO DAILY Azithromycin [Zithromax] Med 12/26/18 14:00 Active 250 mg PO DAILY@1400 Ciclopirox [Loprox 0.77% Crm] Med 12/25/18 14:22 Active 0 gm TOP BID PRN ClomiPRAMINE [ClomiPRAMINE HCl] Med 12/25/18 21:00 Active 0 mg PO BEDTIME ClomiPRAMINE [ClomiPRAMINE HCl] Med 12/25/18 21:00 Active 0 mg PO BID Fluorometholone [Flarex 0.1% Ophth Susp] Med 12/26/18 09:00 Active 0 ml EYEBOTH DAILY Furosemide [Lasix] Med 12/26/18 09:00 Active 20 mg IVPUSH DAILY Latanoprost [Xalatan 0.005% Ophth Soln] Med 12/25/18 21:00 Active 0 ml EYEBOTH BEDTIME Levothyroxine Med 12/26/18 06:00 Active 25 mcg PO DAILY@0600 Lisinopril [Prinivil] Med 12/26/18 09:00 Active 2.5 mg PO DAILY Melatonin Med 12/25/18 21:00 Active 6 mg PO BEDTIME Multivitamins [Tab-A-Violeta] Med 12/26/18 09:00 Active 1 tab PO DAILY Pantoprazole [ProTONIX] Med 12/26/18 06:00 Active 40 mg PO DAILY@0600 Potassium Chloride [Klor-Con 10] Med 12/26/18 09:00 Active 10 meq PO DAILY Rivaroxaban [Xarelto] Med 12/25/18 18:00 Active 15 mg PO WITHDINNER Simvastatin [Zocor] Med 12/25/18 21:00 Active 20 mg PO BEDTIME SitaGLIPtin [Januvia] Med 12/26/18 09:00 Active 25 mg PO DAILY Sodium Chloride 0.9% [Saline Flush] Med 12/25/18 10:52 Active 10 ml FLUSH ASDIRECTED PRN amLODIPine [Norvasc] Med 12/26/18 09:00 Active 5 mg PO DAILY cefTRIAXone [Rocephin] Med 12/25/18 14:30 Active 2 gm IVPUSH Q24H Blood Culture x2 Reflex Set [OM.PC] Urgent Oth 12/25/18 13:38 Ordered Saline Lock Insert [OM.PC] Routine Oth 12/25/18 10:52 Ordered Resuscitation Status Routine Resus Stat 12/25/18 14:12 Ordered EKG 12 Lead [EK] Stat Ther 12/25/18 10:51 Ordered Medication Orders Albuterol (Proventil Neb Soln) 2.5 mg NEB Q4H PRN PRN Reason: Shortness of Breath Amitriptyline HCl (Elavil) 20 mg PO BEDTIME JOHN Amlodipine Besylate (Norvasc) 5 mg PO DAILY JOHN Aspirin (Halfprin) 81 mg PO DAILY [facility] Azithromycin (Zithromax) 250 mg PO DAILY@1400 [facility] Stop: 12/30/18 14:01 Ceftriaxone Sodium (Rocephin) 2 gm IVPUSH Q24H [facility] Last Admin: 12/25/18 15:54 Dose: 2 gm Ciclopirox Olamine (Loprox 0.77% Crm) 0 gm TOP BID PRN PRN Reason: rash/itching Fluorometholone (Flarex 0.1% Ophth Susp) 0 ml EYEBOTH DAILY [facility] Furosemide (Lasix) 20 mg IVPUSH DAILY [facility] Latanoprost (Xalatan 0.005% Ophth Soln) 0 ml EYEBOTH BEDTIME [facility] Levothyroxine Sodium (Levothyroxine) 25 mcg PO DAILY@0600 [facility] Lisinopril (Prinivil) 2.5 mg PO DAILY [facility] Melatonin (Melatonin) 6 mg PO BEDTIME [facility] Multivitamins/Minerals/Vitamin C (Tab-A-Violeta) 1 tab PO DAILY [facility] Non-Formulary Medication 1 Each ( Clomipramine [ Clomipramine Hcl] 25 Mg) *Ptom 0 mg PO BEDTIME [facility] Non-Formulary Medication 1 Each ( Clomipramine [ Clomipramine Hcl] 50 Mg) *Ptom 0 mg PO BID [facility] Pantoprazole Sodium (Protonix) 40 mg PO DAILY@0600 [facility] Potassium Chloride (Klor-Con 10) 10 meq PO DAILY [facility] Rivaroxaban (Xarelto) 15 mg PO WITHDINNER [facility] Simvastatin (Zocor) 20 mg PO BEDTIME [facility] Sitagliptin Phosphate (Januvia) 25 mg PO DAILY [facility] Sodium Chloride (Saline Flush) 10 ml FLUSH ASDIRECTED PRN PRN Reason: Keep Vein Open Last Admin: 12/25/18 12:48 Dose: 10 ml Admin: 12/25/18 11:43 Dose: 10 ml Assessment/Plan Comment:: Admit to medical floor. Start Rocephin Azithromycin.Obtain Echo tomorrow. Aspirin for now,but may need the NOAKs for anticoagulation
[2018-12-25] MEDS ORDERED: Rivaroxaban 15 MG Tab PO SCH (18:00)
[2018-12-25] MEDS: CLOMIPRAMINE 50 MG PO SCH (20:49)
[2018-12-25] MEDS ORDERED: CLOMIPRAMINE 25 MG PO SCH (21:00)
[2018-12-25] MEDS ORDERED: Latanoprost 0.005% Ophth Soln 2.5 ML Bottle EYEBOTH SCH (21:00)
[2018-12-25] MEDS ORDERED: Melatonin 3 MG Tab PO SCH (21:00)
[2018-12-25] MEDS ORDERED: Simvastatin 20 MG Tab PO SCH (21:00)
[2018-12-25] MEDS ORDERED: Amitriptyline 10 MG Tab PO SCH (21:00)
[2018-12-26] MEDS ORDERED: Acetaminophen 325 MG Tab PO PRN (00:35)
[2018-12-26] MEDS ORDERED: Levothyroxine 25 MCG Tab PO SCH (06:00)
[2018-12-26] MEDS ORDERED: Pantoprazole 40 MG Tab.CR PO SCH (06:00)
[2018-12-26 07:42] VITALS: BP 148/64
[2018-12-26] MEDS ORDERED: amLODIPine 5 MG Tab PO SCH (09:00)
[2018-12-26] MEDS ORDERED: Multivitamin Tab PO SCH (09:00)
[2018-12-26] MEDS ORDERED: Furosemide 20 MG/2 ML VIAL IVPUSH SCH (09:00)
[2018-12-26] MEDS ORDERED: Fluorometholone 0.1% Ophth Susp 5 ML Bottle EYEBOTH SCH (09:00)
[2018-12-26] MEDS ORDERED: Potassium Chloride 10 MEQ Tab.ER PO SCH (09:00)
[2018-12-26] MEDS ORDERED: Aspirin 81 MG Tab.EC PO SCH (09:00)
[2018-12-26] MEDS ORDERED: Lisinopril 2.5 MG Tab PO SCH (09:00)
--- NOTE | 2018-12-26 09:09 | PCM.PN ---
- General Info Date of Service: 12/26/18 Subjective Update: Much better today. Denies SOB or Chest pain.No cough. Functional Status: Reports: Pain Controlled - Review of Systems HEENT: Reports: No Symptoms Pulmonary: Reports: No Symptoms Cardiovascular: Reports: No Symptoms - Patient Data Vitals - Most Recent: Last Vital Signs Temp 98.2 F 12/26/18 07:41 Pulse 71 12/26/18 07:41 Resp 16 12/26/18 07:41 BP 148/64 H 12/26/18 07:41 Pulse Ox 95 12/26/18 07:41 Weight - Most Recent: 95.935 kg I&O - Last 24 Hours: Intake & Output 12/25/18 12/26/18 12/26/18 22:59 06:59 14:59 Intake Total 200 100 Output Total 0 Balance 200 100 Lab Results Last 24 Hours: Laboratory Results - last 24 hr 12/25/18 12/25/18 12/25/18 Range/Units 11:15 11:15 11:15 WBC 9.4 (4.5-12.0) X10-3/uL RBC 3.79 (3.23-5.20) x10(6)uL Hgb 11.5 (11.5-15.5) g/dL Hct 34.8 (30.0-51.3) % MCV 91.7 (80-96) fL MCH 30.4 (27.7-33.6) pg MCHC 33.1 (32.2-35.4) g/dL RDW 14.1 (11.5-15.5) % Plt Count 224 (125-369) X10(3)uL MPV 8.4 (7.4-10.4) fL Neut % (Auto) 79.3 (46-82) % Lymph % (Auto) 11.1 L (13-37) % [place] % (Auto) 7.1 (4-12) % Eos % (Auto) 2 (1.0-5.0) % Baso % (Auto) 1 (0-2) % Neut # (Auto) 7.5 (1.6-8.3) # Lymph # (Auto) 1.0 (0.6-5.0) # [place] # (Auto) 0.7 (0.0-1.3) # Eos # (Auto) 0.2 (0.0-0.8) # Baso # (Auto) 0.0 (0.0-0.2) # PT 10.4 (8.7-11.1) INR 1.07 (0.89-1.13) APTT 25.3 (24.4-33.2) SECONDS D-Dimer, Quantitative 1.08 H (0.0-0.59) mg/LFEU Sodium 135 (135-145) mmol/L Potassium 5.1 (3.5-5.3) mmol/L Chloride 99 L (100-110) mmol/L Carbon Dioxide 29 (21-32) mmol/L BUN 21 H D (7-18) mg/dL Creatinine 1.0 (0.55-1.02) mg/dL Est Cr Clr Drug Dosing TNP Estimated GFR (MDRD) 53 L (>60) BUN/Creatinine Ratio 21.0 H (9-20) Glucose 128 H (80-116) mg/dL Lactic Acid (0.4-2.2) mmol/L Calcium 9.1 (8.6-10.2) mg/dL Total Bilirubin 0.3 (0.1-1.3) mg/dL AST 14 (5-25) IU/L ALT 20 D (12-36) U/L Alkaline Phosphatase 58 (56-112) IU/L Troponin I (<0.017-0.056) ng/mL NT-Pro-B Natriuret Pep (<=450) pg/mL Total Protein 6.8 (6.0-8.0) g/dL Albumin 3.5 (3.2-4.6) g/dL Globulin 3.3 g/dL Albumin/Globulin Ratio 1.1 TSH, Ultra Sensitive (0.36-3.74) IU/mL 12/25/18 12/25/18 12/25/18 Range/Units 11:15 11:15 14:10 WBC (4.5-12.0) X10-3/uL RBC (3.23-5.20) x10(6)uL Hgb (11.5-15.5) g/dL Hct (30.0-51.3) % MCV (80-96) fL MCH (27.7-33.6) pg MCHC (32.2-35.4) g/dL RDW (11.5-15.5) % Plt Count (125-369) X10(3)uL MPV (7.4-10.4) fL Neut % (Auto) (46-82) % Lymph % (Auto) (13-37) % [place] % (Auto) (4-12) % Eos % (Auto) (1.0-5.0) % Baso % (Auto) (0-2) % Neut # (Auto) (1.6-8.3) # Lymph # (Auto) (0.6-5.0) # [place] # (Auto) (0.0-1.3) # Eos # (Auto) (0.0-0.8) # Baso # (Auto) (0.0-0.2) # PT (8.7-11.1) INR (0.89-1.13) APTT (24.4-33.2) SECONDS D-Dimer, Quantitative (0.0-0.59) mg/LFEU Sodium (135-145) mmol/L Potassium (3.5-5.3) mmol/L Chloride (100-110) mmol/L Carbon Dioxide (21-32) mmol/L BUN (7-18) mg/dL Creatinine (0.55-1.02) mg/dL Est Cr Clr Drug Dosing Estimated GFR (MDRD) (>60) BUN/Creatinine Ratio (9-20) Glucose (80-116) mg/dL Lactic Acid 1.2 (0.4-2.2) mmol/L Calcium (8.6-10.2) mg/dL Total Bilirubin (0.1-1.3) mg/dL AST (5-25) IU/L ALT (12-36) U/L Alkaline Phosphatase (56-112) IU/L Troponin I < 0.017 L (<0.017-0.056) ng/mL NT-Pro-B Natriuret Pep 1254 H* (<=450) pg/mL Total Protein (6.0-8.0) g/dL Albumin (3.2-4.6) g/dL Globulin g/dL Albumin/Globulin Ratio TSH, Ultra Sensitive 1.82 (0.36-3.74) IU/mL 12/26/18 12/26/18 Range/Units 06:15 06:15 WBC 7.0 (4.5-12.0) X10-3/uL RBC 3.88 (3.23-5.20) x10(6)uL Hgb 11.6 (11.5-15.5) g/dL Hct 35.4 (30.0-51.3) % MCV 91.0 (80-96) fL MCH 29.9 (27.7-33.6) pg MCHC 32.9 (32.2-35.4) g/dL RDW 13.9 (11.5-15.5) % Plt Count 226 (125-369) X10(3)uL MPV 8.7 (7.4-10.4) fL Neut % (Auto) 65.6 (46-82) % Lymph % (Auto) 21.9 (13-37) % [place] % (Auto) 8.1 (4-12) % Eos % (Auto) 4 (1.0-5.0) % Baso % (Auto) 1 (0-2) % Neut # (Auto) 4.6 (1.6-8.3) # Lymph # (Auto) 1.5 (0.6-5.0) # [place] # (Auto) 0.6 (0.0-1.3) # Eos # (Auto) 0.3 (0.0-0.8) # Baso # (Auto) 0.0 (0.0-0.2) # PT (8.7-11.1) INR (0.89-1.13) APTT (24.4-33.2) SECONDS D-Dimer, Quantitative (0.0-0.59) mg/LFEU Sodium 140 (135-145) mmol/L Potassium 4.5 (3.5-5.3) mmol/L Chloride 101 (100-110) mmol/L Carbon Dioxide 32 (21-32) mmol/L BUN 18 (7-18) mg/dL Creatinine 0.9 (0.55-1.02) mg/dL Est Cr Clr Drug Dosing 38.77 Estimated GFR (MDRD) > 60 (>60) BUN/Creatinine Ratio 20.0 (9-20) Glucose 111 (80-116) mg/dL Lactic Acid (0.4-2.2) mmol/L Calcium 9.3 (8.6-10.2) mg/dL Total Bilirubin (0.1-1.3) mg/dL AST (5-25) IU/L ALT (12-36) U/L Alkaline Phosphatase (56-112) IU/L Troponin I (<0.017-0.056) ng/mL NT-Pro-B Natriuret Pep (<=450) pg/mL Total Protein (6.0-8.0) g/dL Albumin (3.2-4.6) g/dL Globulin g/dL Albumin/Globulin Ratio TSH, Ultra Sensitive (0.36-3.74) IU/mL Adi Results Last 24 Hours: Microbiology 12/25/18 13:45 Influenza Type A Antigen Screen - Final Nasopharyngeal Swab NEGATIVE INFLUENZA A VIRUS AG Influenza Type B Antigen Screen - Final NEGATIVE INFLUENZA B VIRUS AG Med Orders - Current: Current Medications Acetaminophen (Tylenol) 650 mg PO Q4H PRN PRN Reason: Pain Last Admin: 12/26/18 01:00 Dose: 650 mg Albuterol (Proventil Neb Soln) 2.5 mg NEB Q4H PRN PRN Reason: Shortness of Breath Amitriptyline HCl (Elavil) 20 mg PO BEDTIME [facility] Last Admin: 12/25/18 20:49 Dose: 20 mg Amlodipine Besylate (Norvasc) 5 mg PO DAILY [facility] Aspirin (Halfprin) 81 mg PO DAILY [facility] Azithromycin (Zithromax) 250 mg PO DAILY@1400 [facility] Stop: 12/30/18 14:01 Ceftriaxone Sodium (Rocephin) 2 gm IVPUSH Q24H [facility] Last Admin: 12/25/18 15:54 Dose: 2 gm Ciclopirox Olamine (Loprox 0.77% Crm) 0 gm TOP BID PRN PRN Reason: rash/itching Fluorometholone (Flarex 0.1% Ophth Susp) 0 ml EYEBOTH DAILY [facility] Furosemide (Lasix) 20 mg IVPUSH DAILY [facility] Latanoprost (Xalatan 0.005% Ophth Soln) 0 ml EYEBOTH BEDTIME [facility] Last Admin: 12/25/18 20:50 Dose: 1 drop Levothyroxine Sodium (Levothyroxine) 25 mcg PO DAILY@0600 [facility] Last Admin: 12/26/18 07:34 Dose: 25 mcg Lisinopril (Prinivil) 2.5 mg PO DAILY [facility] Melatonin (Melatonin) 6 mg PO BEDTIME [facility] Last Admin: 12/25/18 20:49 Dose: 6 mg Multivitamins/Minerals/Vitamin C (Tab-A-Violeta) 1 tab PO DAILY [facility] Non-Formulary Medication 1 Each ( Clomipramine [ Clomipramine Hcl] 25 Mg) *Ptom 0 mg PO BEDTIME [facility] Last Admin: 12/25/18 20:48 Dose: 25 mg Non-Formulary Medication 1 Each ( Clomipramine [ Clomipramine Hcl] 50 Mg) *Ptom 0 mg PO BID [facility] Last Admin: 12/25/18 20:49 Dose: 50 mg Pantoprazole Sodium (Protonix) 40 mg PO DAILY@0600 [facility] Last Admin: 12/26/18 07:34 Dose: 40 mg Potassium Chloride (Klor-Con 10) 10 meq PO DAILY [facility] Rivaroxaban (Xarelto) 15 mg PO WITHDINNER [facility] Last Admin: 12/25/18 17:18 Dose: 15 mg Simvastatin (Zocor) 20 mg PO BEDTIME [facility] Last Admin: 12/25/18 20:49 Dose: 20 mg Sitagliptin Phosphate (Januvia) 25 mg PO DAILY [facility] Sodium Chloride (Saline Flush) 10 ml FLUSH ASDIRECTED PRN PRN Reason: Keep Vein Open Last Admin: 12/25/18 12:48 Dose: 10 ml Discontinued Medications Albuterol (Proventil Neb Soln) 2.5 mg NEB ONETIME ONE Stop: 12/25/18 10:54 Last Admin: 12/25/18 11:32 Dose: 2.5 mg Azithromycin (Zithromax) 500 mg PO ONETIME ONE Stop: 12/25/18 14:20 Last Admin: 12/25/18 15:52 Dose: 500 mg Furosemide (Lasix) 40 mg IVPUSH NOW ONE Stop: 12/25/18 12:14 Last Admin: 12/25/18 12:31 Dose: 40 mg Iopamidol (Isovue-370 (76%)) 100 ml IV . DIRECTED ONE Stop: 12/25/18 13:02 Last Admin: 12/25/18 13:05 Dose: 85 ml Lisinopril (Prinivil) 2.5 mg PO .ONCE ONE Stop: 12/25/18 12:18 Last Admin: 12/25/18 12:31 Dose: 2.5 mg - Exam Quality Assessment: No: Supplemental Oxygen General: Alert, Oriented HEENT: Pupils Equal Neck: Supple Lungs: Clear to Auscultation Cardiovascular: Irregular Rhythm, Murmurs Skin: Warm Psy/Mental Status: Alert - Problem List & Annotations (1) Pneumonia SNOMED Code(s): 853043658 Code(s): J18.9 - PNEUMONIA, UNSPECIFIED ORGANISM Status: Acute Current Visit: Yes Qualifiers: Pneumonia type: due to unspecified organism Laterality: left Lung location: lower lobe of lung Qualified Code(s): J18.1 - Lobar pneumonia, unspecified organism (2) New onset atrial fibrillation SNOMED Code(s): 40551532 Code(s): I48.91 - UNSPECIFIED ATRIAL FIBRILLATION Status: Acute Current Visit: Yes (3) HTN (hypertension) SNOMED Code(s): 16757608 Code(s): I10 - ESSENTIAL (PRIMARY) HYPERTENSION Status: Acute Current Visit: Yes Qualifiers: Hypertension type: essential hypertension Qualified Code(s): I10 - Essential (primary) hypertension (4) Anxiety SNOMED Code(s): 00462106 Code(s): F41.9 - ANXIETY DISORDER, UNSPECIFIED Status: Acute Current Visit: Yes (5) Obese SNOMED Code(s): 342043077, 208847848 Code(s): E66.9 - OBESITY, UNSPECIFIED Status: Acute Current Visit: Yes Qualifiers: Obesity type: due to excess calories (6) Palliative care patient SNOMED Code(s): 397391813 Code(s): Z51.5 - ENCOUNTER FOR PALLIATIVE CARE Status: Acute Current Visit: Yes (7) New onset of congestive heart failure SNOMED Code(s): 65208154 Code(s): I50.9 - HEART FAILURE, UNSPECIFIED Status: Acute Current Visit: Yes - Problem List Review Problem List Initiated/Reviewed/Updated: Yes - My Orders Last 24 Hours: My Active Orders 12/26/18 00:35 Acetaminophen [Tylenol] 650 mg PO Q4H PRN 12/26/18 08:00 Echo Comp wo Cont [US] Routine - Plan Plan:: DC home today on Xarelto.See PCP on [facility]
[2018-12-26] MEDS: CLOMIPRAMINE 50 MG PO SCH (09:54)
--- NOTE | 2018-12-26 12:08 | DISCH ---
DISCHARGE DATE: 12/26/2018 REASON FOR ADMISSION: 1. Pneumonia. 2. New-onset atrial fibrillation. 3. History of congestive heart failure. 4. History of hypertension. 5. Obesity. BRIEF HISTORY AND HOSPITAL COURSE: This is an 83-year-old female, who was brought in because of shortness of breath. In the emergency room, a CT revealed minimal pneumonia in the lungs and then EKG revealed atrial fibrillation that was new. She was placed on azithromycin and Rocephin and Xarelto. She improved markedly and was off oxygenation and did not need any oxygen supplementation. She got some Lasix and an echocardiogram will be done today before discharge. She will be discharged on 20 mg of Xarelto daily, aspirin, and azithromycin 250 mg a day for 4 days. FOLLOWUP: She will see Dr. Rivera on , and she also will go home with home health for [facility] with medications. Please note that I spent more than 35 minutes in the discharge of the patient. /[id number] TIMOTHY/RC
[2018-12-26] MEDS ORDERED: Azithromycin 250 MG Tab PO SCH (14:00)
== END 2018-12-26 12:20 | disposition home health service (06) | DRG 194 ==
LOC: FB.ED 10:32 → FB.MS 14:11
PROVIDERS: ADMIT Family Medicine; ATTEND Family Medicine
DX: J18.1 Lobar pneumonia, unspecified organism (principal); Z68.41 Body mass index [BMI] 40.0-44.9, adult; Z51.5 Encounter for palliative care; I11.0 Hypertensive heart disease with heart failure; I50.9 Heart failure, unspecified; I48.91 Unspecified atrial fibrillation; E11.9 Type 2 diabetes mellitus without complications; Z79.84 Long term (current) use of oral hypoglycemic drugs; E03.9 Hypothyroidism, unspecified; Z87.891 Personal history of nicotine dependence; F41.9 Anxiety disorder, unspecified; E66.9 Obesity, unspecified; R06.02 Shortness of breath; E78.00 Pure hypercholesterolemia, unspecified; F32.9 Major depressive disorder, single episode, unspecified; Z86.73 Personal history of transient ischemic attack (TIA), and cerebral infarction without residual deficits; M19.90 Unspecified osteoarthritis, unspecified site; R32 Unspecified urinary incontinence; Z79.82 Long term (current) use of aspirin; Z88.2 Allergy status to sulfonamides
CPT/HCPCS: 36415; 71045; 71275; 80053; 83605; 83880; 84443; 84484; 85025; 85379; 85610; 85730; 87040 ×2; 87804 ×2; 93005; 94640; 96374; 99285; A9270; J1940; Q9967; 80048; 93306; J0696

== ENCOUNTER 2018-12-30 20:58 | Emergency (ER) | payer MEDICARE ==
[2018-12-30 21:30] VITALS: BP 152/68
--- NOTE | 2018-12-30 22:41 | EDM.PDOC ---
ED HPI GENERAL MEDICAL PROBLEM - General Chief Complaint: Gastrointestinal Problem Stated Complaint: BLOOD IN STOOL Time Seen by Provider: 12/30/18 21:05 Source of Information: Reports: Patient, Family History Limitations: Reports: No Limitations - History of Present Illness INITIAL COMMENTS - FREE TEXT/NARRATIVE: c/o bleeding hemorrhoid pt in hospital overnight 4d ago with c/o sob and dx with HF and new onset afib, begun on Xarelto has had some blood with BM every since otherwise feeling well, breathing is better lives in an apartment at [place], here with her daughter does have slight discomfort with each BM, appears to have erosion of the mucosa of the anal canal d/t body habitus (inc'd adipose tissue) altho there is no true fissure however, hgb 11.6 from 4d ago is now 11.1, suggesting a bleeding internal hemorrhoid - Related Data Allergies Allergy/AdvReac Type Severity Reaction Status Date / Time Sulfa (Sulfonamide Allergy Cannot Verified 12/30/18 21:29 Antibiotics) Remember Home Meds: Home Meds Amitriptyline [Elavil] 20 mg PO BEDTIME 03/26/16 [History] Aspirin [Halfprin] 81 mg PO DAILY 03/26/16 [History] ClomiPRAMINE [ClomiPRAMINE HCl] 25 mg PO BEDTIME 03/26/16 [History] ClomiPRAMINE [ClomiPRAMINE HCl] 50 mg PO BID 03/26/16 [History] Ferrous Gluconate 325 mg PO WITHBREAKFAST 03/26/16 [History] Levothyroxine 25 mcg PO DAILY@0600 03/26/16 [History] Multivitamin [Daily Violeta] 1 tab PO DAILY 03/26/16 [History] Omeprazole 20 mg PO ACBREAKFAST 03/26/16 [History] Simvastatin [Zocor] 20 mg PO BEDTIME 03/26/16 [History] amLODIPine [Norvasc] 5 mg PO DAILY 03/26/16 [History] SitaGLIPtin [Januvia] 25 mg PO DAILY #30 tablet 03/31/16 [Rx] Albuterol [Ventolin HFA] 2 puff INH Q4H PRN #1 inhaler 06/22/18 [Rx] Acetaminophen [Tylenol] 325 - 650 mg PO Q4H PRN 12/25/18 [History] Calcium Carbonate/Vitamin D3 [Calcium 600 + Vit D 200] 1 tab PO BIDMEALS [History] Ciclopirox [Loprox 0.77% Crm] 1 applic TOP BID PRN 12/25/18 [History] Enalapril [Vasotec] 5 mg PO DAILY 12/25/18 [History] Fluocinolone Acetonide 1 applic TOP BID PRN 12/25/18 [History] Fluorometholone [Fluorometholone 0.1% Ophth Susp] 1 drop EYEBOTH DAILY 12/25/18 [History] Latanoprost [Xalatan 0.005% Ophth Soln] 1 drop EYEBOTH BEDTIME 12/25/18 [History ] Loperamide HCl [Loperamide] 2 - 4 mg PO ASDIRECTED PRN 12/25/18 [History] Melatonin 6 mg PO BEDTIME 12/25/18 [History] Polyethylene Glycol 3350 [MiraLAX] 17 gm PO DAILY PRN 12/25/18 [History] Potassium Chloride 10 meq PO DAILY 12/25/18 [History] Triamcinolone Acetonide [Triamcinolone Acetonide 0.1% Crm] 1 applic TOP TID PRN 12/25/18 [History] Azithromycin [Zithromax] 250 mg PO DAILY@1400 #4 tablet 12/26/18 [Rx] Rivaroxaban [Xarelto] 15 mg PO WITHDINNER 12/26/18 [History] Glycerin 1 each RC DAILY PRN #12 supp.rect 12/30/18 [Rx] Past Medical History Cardiovascular History: Reports: High Cholesterol, Hypertension, Other (See Below) (Heart murmur). 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: Musculoskeletal History: Reports: Arthritis, Fracture Neurological History: Reports: TIA Psychiatric History: Reports: Depression Endocrine/Metabolic History: Reports: Diabetes, Type II, Hypothyroidism Dermatologic History: Reports: Eczema, Other (See Below) Other Dermatologic History: had for a long time - Infectious Disease History Infectious Disease History: Reports: Chicken Pox, Influenza, Measles - Past Surgical History HEENT Surgical History: Reports: Cataract Surgery Social & Family History - Family History Family Medical History: Noncontributory - Tobacco Use Smoking Status *Q: Former Smoker Used Tobacco, but Quit: No - Caffeine Use Caffeine Use: Reports: Coffee, Soda - Recreational Drug Use Recreational Drug Use: No Other Recreational Drug Type: Patient denies recreational drug use. ED ROS GENERAL - Review of Systems Review Of Systems: See Below Constitutional: Reports: No Symptoms HEENT: Reports: No Symptoms Respiratory: Reports: No Symptoms Cardiovascular: Reports: No Symptoms Endocrine: Reports: No Symptoms GI/Abdominal: Reports: Other (bleeding hemorrhoid) : Reports: No Symptoms Musculoskeletal: Reports: No Symptoms Skin: Reports: No Symptoms Neurological: Reports: No Symptoms Psychiatric: Reports: No Symptoms Hematologic/Lymphatic: Reports: No Symptoms Immunologic: Reports: No Symptoms ED EXAM, GI/ABD - Physical Exam Exam: See Below Exam Limited By: No Limitations General Appearance: Alert, WD/WN, No Apparent Distress Respiratory/Chest: No Respiratory Distress, Lungs Clear, Normal Breath Sounds Cardiovascular: Systolic Murmur, Other (harsh 2/6 RAMON at base c/w murmer, slight irregular c/w afib). No: No Gallop, No Rub, Gallop/S3, Gallop/S4 Rectal (Female) Exam: Other (there are several small old external hemorrhoids that are soft and NT, there is superficial erosion of the anal mucosa at 2 o' clock, no visible external hemorrhoid, GARDENIA deferred to surgeon) Neurological: Alert, Oriented Psychiatric: Normal Affect, Normal Mood Skin Exam: Warm, Dry, Intact, Normal Color, No Rash Lymphatic: No Adenopathy Course - Vital Signs Last Recorded V/S: Last Vital Signs Temp 36.9 C 12/30/18 21:10 Pulse 70 12/30/18 21:10 Resp 18 12/30/18 21:10 BP 152/68 H 12/30/18 21:10 Pulse Ox 100 12/30/18 21:10 - Orders/Labs/Meds Labs: Laboratory Tests 12/30/18 Range/Units 21:48 WBC 8.1 (4.5-12.0) X10-3/uL RBC 3.69 (3.23-5.20) x10(6)uL Hgb 11.1 L (11.5-15.5) g/dL Hct 33.7 (30.0-51.3) % MCV 91.3 (80-96) fL MCH 29.9 (27.7-33.6) pg MCHC 32.8 (32.2-35.4) g/dL RDW 13.6 (11.5-15.5) % Plt Count 227 (125-369) X10(3)uL MPV 8.3 (7.4-10.4) fL Neut % (Auto) 68.5 (46-82) % Lymph % (Auto) 17.5 (13-37) % Beauregard % (Auto) 9.8 (4-12) % Eos % (Auto) 4 (1.0-5.0) % Baso % (Auto) 1 (0-2) % Neut # (Auto) 5.6 (1.6-8.3) # Lymph # (Auto) 1.4 (0.6-5.0) # Beauregard # (Auto) 0.8 (0.0-1.3) # Eos # (Auto) 0.3 (0.0-0.8) # Baso # (Auto) 0.0 (0.0-0.2) # Departure - Departure Time of Disposition: 22:36 Disposition: Home, Self-Care 01 Condition: Good Clinical Impression: Bleeding internal hemorrhoids, Mild anemia - Discharge Information *PRESCRIPTION DRUG MONITORING PROGRAM REVIEWED*: Not Applicable *COPY OF PRESCRIPTION DRUG MONITORING REPORT IN PATIENT EARNESTINE: Not Applicable Prescriptions: Glycerin 1 each RC DAILY PRN #12 supp.rect PRN Reason: Bleeding Instructions: Hemorrhoids, Surgical Procedures for Hemorrhoids Referrals: Jhoan Rivera MD [Primary Care Provider] - Additional Instructions: Continue your stool softner. Use a glycerin suppository before each bowel movement. Call the clinic at 8 AM in 2 days (Tuesday) to schedule an appointment with Dr Marie either later that day or the next day. Return to ED if you are feeling worse. Call your Physician or Return to Emergency Department if: * Your condition worsens in any way. * You develop fever greater than 100.4. * You have vomitting that does not stop with medications. * You have pain that is not controlled with medications.
== END 2018-12-30 23:00 | disposition home or self-care (01) ==
LOC: FB.ED 20:58
DX: K64.8 Other hemorrhoids (principal); D64.9 Anemia, unspecified; I10 Essential (primary) hypertension; E11.9 Type 2 diabetes mellitus without complications; Z88.2 Allergy status to sulfonamides; Z79.899 Other long term (current) drug therapy; Z79.82 Long term (current) use of aspirin; Z87.891 Personal history of nicotine dependence
CPT/HCPCS: 36415; 85025; 99283

== ENCOUNTER 2019-01-10 20:51 | Emergency (ER) | payer MEDICARE ==
--- NOTE | 2019-01-10 21:21 | EDM.PDOC ---
ED HPI GENERAL MEDICAL PROBLEM - General Stated Complaint: HEMORAIDS BLEEDING Time Seen by Provider: 01/10/19 20:51 Source of Information: Reports: Patient, Family History Limitations: Reports: No Limitations - History of Present Illness INITIAL COMMENTS - FREE TEXT/NARRATIVE: 83 y.o.w.f came with her daughter to the ed 5 days after she underwent Hemorrhoid banding due to one episode of a bloody stool, after a BM. No pain. No N/V/D, no dizziness, no other acute med issue. BP 156/52 RR 17 Pulse ox 100 % on RA Pulse 71 Temp 36.5 Onset Date: 01/10/19 Onset Time: 19:00 Duration: Hour(s): Location: Reports: Abdomen Quality: Reports: Dull Severity: Mild Improves with: Reports: None Worsens with: Reports: None Context: Reports: Other (S/P Hemorrhoid banding 01/05/2019) Associated Symptoms: Reports: No Other Symptoms - Related Data Allergies Allergy/AdvReac Type Severity Reaction Status Date / Time Sulfa (Sulfonamide Allergy Cannot Verified 12/30/18 21:29 Antibiotics) Remember Home Meds: Home Meds Amitriptyline [Elavil] 20 mg PO BEDTIME 03/26/16 [History] Aspirin [Halfprin] 81 mg PO DAILY 03/26/16 [History] ClomiPRAMINE [ClomiPRAMINE HCl] 25 mg PO BEDTIME 03/26/16 [History] ClomiPRAMINE [ClomiPRAMINE HCl] 50 mg PO BID 03/26/16 [History] Ferrous Gluconate 325 mg PO WITHBREAKFAST 03/26/16 [History] Levothyroxine 25 mcg PO DAILY@0600 03/26/16 [History] Multivitamin [Daily Violeta] 1 tab PO DAILY 03/26/16 [History] Omeprazole 20 mg PO ACBREAKFAST 03/26/16 [History] Simvastatin [Zocor] 20 mg PO BEDTIME 03/26/16 [History] amLODIPine [Norvasc] 5 mg PO DAILY 03/26/16 [History] SitaGLIPtin [Januvia] 25 mg PO DAILY #30 tablet 03/31/16 [Rx] Albuterol [Ventolin HFA] 2 puff INH Q4H PRN #1 inhaler 06/22/18 [Rx] Acetaminophen [Tylenol] 325 - 650 mg PO Q4H PRN 03/25/19 [History] Calcium Carbonate/Vitamin D3 [Calcium 600 + Vit D 200] 1 tab PO BIDMEALS [History] Ciclopirox [Loprox 0.77% Crm] 1 applic TOP BID PRN 12/25/18 [History] Enalapril [Vasotec] 5 mg PO DAILY 12/25/18 [History] Fluocinolone Acetonide 1 applic TOP BID PRN 12/25/18 [History] Fluorometholone [Fluorometholone 0.1% Ophth Susp] 1 drop EYEBOTH DAILY 12/25/18 [History] Latanoprost [Xalatan 0.005% Ophth Soln] 1 drop EYEBOTH BEDTIME 12/25/18 [History ] Loperamide HCl [Loperamide] 2 - 4 mg PO ASDIRECTED PRN 12/25/18 [History] Melatonin 6 mg PO BEDTIME 12/25/18 [History] Polyethylene Glycol 3350 [MiraLAX] 17 gm PO DAILY PRN 12/25/18 [History] Potassium Chloride 10 meq PO DAILY 12/25/18 [History] Triamcinolone Acetonide [Triamcinolone Acetonide 0.1% Crm] 1 applic TOP TID PRN 12/25/18 [History] Azithromycin [Zithromax] 250 mg PO DAILY@1400 #4 tablet 12/26/18 [Rx] Rivaroxaban [Xarelto] 15 mg PO WITHDINNER 12/26/18 [History] Glycerin 1 each RC DAILY PRN #12 supp.rect 12/30/18 [Rx] Past Medical History Cardiovascular History: Reports: High Cholesterol, Hypertension, Other (See Below) (Heart murmur). 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: Musculoskeletal History: Reports: Arthritis, Fracture Neurological History: Reports: TIA Psychiatric History: Reports: Depression Endocrine/Metabolic History: Reports: Diabetes, Type II, Hypothyroidism Dermatologic History: Reports: Eczema, Other (See Below) Other Dermatologic History: had for a long time - Infectious Disease History Infectious Disease History: Reports: Chicken Pox, Influenza, Measles - Past Surgical History HEENT Surgical History: Reports: Cataract Surgery Social & Family History - Family History Family Medical History: Noncontributory - Caffeine Use Caffeine Use: Reports: Coffee, Soda ED ROS GENERAL - Review of Systems Review Of Systems: See Below Constitutional: Reports: No Symptoms HEENT: Reports: No Symptoms Respiratory: Reports: No Symptoms Cardiovascular: Reports: No Symptoms Endocrine: Reports: No Symptoms GI/Abdominal: Reports: Hematochezia : Reports: No Symptoms Musculoskeletal: Reports: No Symptoms Skin: Reports: No Symptoms Neurological: Reports: No Symptoms Psychiatric: Reports: No Symptoms Hematologic/Lymphatic: Reports: No Symptoms Immunologic: Reports: No Symptoms ED EXAM, GI/ABD - Physical Exam Exam: See Below Exam Limited By: No Limitations General Appearance: Alert, WD/WN, Mild Distress Eyes: Bilateral: Normal Appearance Ears: Normal External Exam Nose: Normal Inspection Throat/Mouth: Normal Inspection Head: Atraumatic, Normocephalic Neck: Normal Inspection, Supple, Non-Tender, Full Range of Motion Respiratory/Chest: No Respiratory Distress, Lungs Clear, Normal Breath Sounds, No Accessory Muscle Use, Chest Non-Tender Cardiovascular: Normal Peripheral Pulses, Regular Rate, Rhythm, No Edema, No Gallop, No JVD, No Murmur GI/Abdominal Exam: Normal Bowel Sounds, Soft, Non-Tender, No Organomegaly, No Distention (Female) Exam: Deferred Rectal (Female) Exam: Normal Exam, Heme + Stool, Hemorrhoids Back Exam: Normal Inspection, Full Range of Motion Extremities: Normal Inspection, Normal Range of Motion, Non-Tender, No Pedal Edema, Normal Capillary Refill Neurological: Alert, Oriented, CN II-XII Intact, Normal Cognition, Normal Gait Psychiatric: Normal Affect, Normal Mood Skin Exam: Warm, Dry, Intact, Normal Color, No Rash Lymphatic: No Adenopathy Course - Vital Signs Text/Narrative:: 83 y.o.w.f came with her daughter to the ed 5 days after she underwent Hemorrhoid banding due to one episode of a bloody stool, after a BM. No pain. No N/V/D, no dizziness, no other acute med issue. BP 156/52 RR 17 Pulse ox 100 % on RA Pulse 71 Temp 36.5 PE: Obese 83 y.o.w.f with Hematochezia, no active bleed, one episode after a BM labs/Imaging: Not indicated Impression: Hematochezia S/P hemorrhoid Banding 5 days ago Tx: None Reexam: Pt was stable in the in the ED Plan: D/C with instructions Last Recorded V/S: Last Vital Signs Temp 36.5 C 01/10/19 20:55 Pulse 78 01/10/19 20:55 Resp 17 01/10/19 20:55 BP 146/52 H 01/10/19 20:55 Pulse Ox 100 01/10/19 20:55 Departure - Departure Time of Disposition: 21:20 Disposition: Home, Self-Care 01 Condition: Good Clinical Impression: Hematochezia - Discharge Information Instructions: Hemorrhoids, Nonsurgical Procedures for Hemorrhoids Referrals: Don Marie MD [Primary Care Provider] - Forms: ED Department Discharge Additional Instructions: Please cont your current meds, please keep stool soft by eating fibers like oatmeal daily, please f/u, come back if your symptoms get worse acutely
[2019-01-10 21:24] VITALS: BP 146/52
== END 2019-01-10 21:40 | disposition home or self-care (01) ==
LOC: FB.ED 20:51
DX: K92.1 Melena (principal); I10 Essential (primary) hypertension; E11.9 Type 2 diabetes mellitus without complications; Z88.2 Allergy status to sulfonamides; Z79.82 Long term (current) use of aspirin; Z79.899 Other long term (current) drug therapy
CPT/HCPCS: 99282

== ENCOUNTER 2019-10-08 17:09 | Emergency (ER) | payer MEDICARE ==
[2019-10-08] MEDS ORDERED: Albuterol/Ipratropium 3.0-0.5 MG/3 ML Neb Soln NEB ONE (17:41)
--- NOTE | 2019-10-08 18:22 | EDM.PDOC ---
ED HPI GENERAL MEDICAL PROBLEM - General Chief Complaint: Respiratory Problem Stated Complaint: HARD TO BREATH Time Seen by Provider: 10/08/19 17:10 Source of Information: Reports: Patient History Limitations: Reports: No Limitations - History of Present Illness INITIAL COMMENTS - FREE TEXT/NARRATIVE: Patient presented to the ED because of dyspnea and she thinks that a cashew nut is still in her throat. She has a h/o COPD,CHF, denies any chest pain or any recent weight gain or edema. She has a cough and cold x1 day with associated wheezing, there is no fever or chills. - Related Data Allergies Allergy/AdvReac Type Severity Reaction Status Date / Time Sulfa (Sulfonamide Allergy Cannot Verified 12/30/18 21:29 Antibiotics) Remember Home Meds: Home Meds Amitriptyline [Elavil] 20 mg PO BEDTIME 03/26/16 [History] ClomiPRAMINE [ClomiPRAMINE HCl] 25 mg PO BEDTIME 03/26/16 [History] ClomiPRAMINE [ClomiPRAMINE HCl] 50 mg PO BID 03/26/16 [History] Ferrous Gluconate 325 mg PO WITHBREAKFAST 03/26/16 [History] Levothyroxine 25 mcg PO DAILY@0600 03/26/16 [History] Multivitamin [Daily Violeta] 1 tab PO DAILY 03/26/16 [History] Simvastatin [Zocor] 20 mg PO BEDTIME 03/26/16 [History] amLODIPine [Norvasc] 5 mg PO DAILY 03/26/16 [History] SitaGLIPtin [Januvia] 25 mg PO DAILY #30 tablet 03/31/16 [Rx] Acetaminophen [Tylenol] 325 - 650 mg PO Q4H PRN 12/25/18 [History] Calcium Carbonate/Vitamin D3 [Calcium 600 + Vit D 200] 1 tab PO BIDMEALS [History] Ciclopirox [Loprox 0.77% Crm] 1 applic TOP BID PRN 12/25/18 [History] Enalapril [Vasotec] 5 mg PO DAILY 12/25/18 [History] Fluocinolone Acetonide 1 applic TOP BID PRN 12/25/18 [History] Fluorometholone [Fluorometholone 0.1% Ophth Susp] 1 drop EYEBOTH DAILY 12/25/18 [History] Latanoprost [Xalatan 0.005% Ophth Soln] 1 drop EYEBOTH BEDTIME 12/25/18 [History ] Loperamide HCl [Loperamide] 2 - 4 mg PO ASDIRECTED PRN 12/25/18 [History] Polyethylene Glycol 3350 [MiraLAX] 17 gm PO DAILY PRN 12/25/18 [History] Potassium Chloride 10 meq PO DAILY 12/25/18 [History] Triamcinolone Acetonide [Triamcinolone Acetonide 0.1% Crm] 1 applic TOP TID PRN 12/25/18 [History] Azithromycin [Zithromax] 250 mg PO DAILY@1400 #4 tablet 12/26/18 [Rx] Rivaroxaban [Xarelto] 15 mg PO WITHDINNER 12/26/18 [History] Glycerin 1 each RC DAILY PRN #12 supp.rect 12/30/18 [Rx] Past Medical History Cardiovascular History: Reports: Afib, Heart Failure, Heart Murmur, High Cholesterol, Hypertension, Other (See Below) Respiratory History: Reports: None Gastrointestinal History: Reports: Other (See Below) Other Gastrointestinal History: Colitis Genitourinary History: Reports: Urinary Incontinence [employer]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: Musculoskeletal History: Reports: Arthritis, Fracture Neurological History: Reports: TIA Psychiatric History: Reports: Depression Endocrine/Metabolic History: Reports: Diabetes, Type II, Hypothyroidism Dermatologic History: Reports: Eczema, Other (See Below) Other Dermatologic History: had for a long time - Infectious Disease History Infectious Disease History: Reports: Chicken Pox, Influenza, Measles - Past Surgical History HEENT Surgical History: Reports: Cataract Surgery Social & Family History - Family History Family Medical History: Noncontributory - Tobacco Use Smoking Status *Q: Former Smoker Used Tobacco, but Quit: Yes Month/Year Tobacco Last Used: 2009 - Caffeine Use Caffeine Use: Reports: Coffee, Soda Other Caffeine Use: flavored water. ED ROS GENERAL - Review of Systems Review Of Systems: See Below Constitutional: Reports: No Symptoms HEENT: Reports: No Symptoms Respiratory: Reports: Wheezing, Cough. Denies: Sputum Cardiovascular: Reports: No Symptoms Endocrine: Reports: No Symptoms GI/Abdominal: Reports: No Symptoms : Reports: No Symptoms Musculoskeletal: Reports: No Symptoms Skin: Reports: No Symptoms ED EXAM, GENERAL - Physical Exam Exam: See Below Exam Limited By: No Limitations General Appearance: Alert, No Apparent Distress Eye Exam: Bilateral Eye: PERRL Ears: Normal External Exam, Normal Canal Nose: Normal Inspection, Normal Mucosa, No Blood Throat/Mouth: Normal Inspection, Normal Lips Head: Atraumatic, Normocephalic Neck: Normal Inspection, Supple, Non-Tender Respiratory/Chest: No Respiratory Distress, Lungs Clear, Normal Breath Sounds, Wheezing Cardiovascular: Normal Peripheral Pulses, Regular Rate, Rhythm, No Edema, No Gallop, No JVD, No Murmur GI/Abdominal: Normal Bowel Sounds, Soft, Non-Tender, No Organomegaly, No Distention, No Abnormal Bruit, No Mass Back Exam: Normal Inspection, Full Range of Motion Extremities: Normal Inspection, Normal Range of Motion, No Pedal Edema Course - Vital Signs Text/Narrative:: cxr-neg duoneb x1 with improvement of her breathing Last Recorded V/S: Last Vital Signs Temp 36.7 C 10/08/19 18:30 Pulse 77 10/08/19 18:30 Resp 18 10/08/19 18:30 BP 121/53 L 10/08/19 18:30 Pulse Ox 95 10/08/19 18:30 - Orders/Labs/Meds Orders: Active Orders 24 hr Category Date Time Status RT Aerosol Therapy [RC] ASDIRECTED Care 10/08/19 17:41 Active Chest 2V [CR] Stat Exams 10/08/19 17:40 Taken Meds: Medications Discontinued Medications Generic Name Dose Route Start Last Admin Trade Name Wolfgangq PRN Reason Stop Dose Admin Albuterol/Ipratropium 3 ml 10/08/19 17:41 10/08/19 17:47 Duoneb 3.0-0.5 Mg/3 Ml NEB 10/08/19 17:42 3 ml ONETIME ONE Administration Departure - Departure Time of Disposition: 18:20 Disposition: Home, Self-Care 01 Condition: Good Clinical Impression: Bronchospasm with bronchitis, acute - Discharge Information Instructions: Shortness of Breath, Adult, [id number] Referrals: Jhoan Rivera MD [Primary Care Provider] - Forms: ED Department Discharge Additional Instructions: please read discharge instructions on URI and bronchospasm increase oral fluids (lukewarm water) Follow up if symptoms persist Sepsis Event Note - Evaluation Sepsis Screening Result: No Definite Risk - Focused Exam Vital Signs: Vital Signs Temp Pulse Resp BP Pulse Ox 10/08/19 18:30 36.7 C 77 18 121/53 L 95 10/08/19 17:09 36.6 C 83 18 150/56 H 95 Date Exam was Performed: 10/08/19 Time Exam was Performed: 21:21 - My Orders Last 24 Hours: My Active Orders 10/08/19 17:40 Chest 2V [CR] Stat 10/08/19 17:41 RT Aerosol Therapy [RC] ASDIRECTED - Assessment/Plan Last 24 Hours: My Active Orders 10/08/19 17:40 Chest 2V [CR] Stat 10/08/19 17:41 RT Aerosol Therapy [RC] ASDIRECTED
[2019-10-08 18:50] VITALS: BP 121/53; PULSE 77
--- NOTE | 2019-10-09 19:12 | CR ---
INDICATION: Cough. Dyspnea. CHEST, TWO VIEWS: PA and lateral views of the chest with 2 lateral views were compared with 12/25/18 and 06/22/18. The heart appears enlarged with LVE. 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 Lungs appear to be somewhat hyperaerated with mild flattening of diaphragm leaf on the lateral view, raising question of COPD. Heavy markings are noted at the left lung base with poor visualization of the costophrenic angle area on the left. This may be on the basis of patchy pneumonia in that region. It is not dissimilar from the previous study of 12/25 however, or 06/22/18. There is also evidence of exogenous obesity and calcification in the arch of the aorta and descending aorta. Bridging hyperostotic changes are noted in the mid thoracic spine. Somewhat heavy markings are also noted at the medial right lung base as previously and may represent fibrosis, but make it difficult to exclude minimal patchy bronchopneumonia in that area. IMPRESSION: 1. Cannot exclude bibasilar pneumonia and possibly pleuritis on the left - fibrosis could also be present with this appearance. 2. Scoliosis. 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 5. Possible COPD - correlate clinically. 6. Exogenous obesity. MTDD
== END 2019-10-08 18:35 | disposition home or self-care (01) ==
LOC: FB.ED 17:09
DX: J44.0 Chronic obstructive pulmonary disease with (acute) lower respiratory infection (principal); J20.9 Acute bronchitis, unspecified; I11.0 Hypertensive heart disease with heart failure; I50.9 Heart failure, unspecified; E78.00 Pure hypercholesterolemia, unspecified; E11.9 Type 2 diabetes mellitus without complications; F32.9 Major depressive disorder, single episode, unspecified; I48.91 Unspecified atrial fibrillation; E03.9 Hypothyroidism, unspecified; Z86.73 Personal history of transient ischemic attack (TIA), and cerebral infarction without residual deficits; Z79.01 Long term (current) use of anticoagulants; Z79.84 Long term (current) use of oral hypoglycemic drugs; Z79.890 Hormone replacement therapy; Z79.899 Other long term (current) drug therapy; Z88.2 Allergy status to sulfonamides; Z87.891 Personal history of nicotine dependence
CPT/HCPCS: 71046; 94640; 99284; 99285-25; J7620-GY

== ENCOUNTER 2020-05-14 22:54 | Emergency (ER) | payer MEDICARE ==
[2020-05-14 23:07] VITALS: BP 151/59; PULSE 81
--- NOTE | 2020-05-14 23:09 | EDM.PDOC ---
ED HPI GENERAL MEDICAL PROBLEM - General Stated Complaint: FALL Time Seen by Provider: 05/14/20 23:00 Source of Information: Reports: Patient, Family History Limitations: Reports: No Limitations - History of Present Illness INITIAL COMMENTS - FREE TEXT/NARRATIVE: Patient presented to the ED because of a head injury and bruising on the right elbow when Kylah tripped and fell . She is not sure if she hit her head or not. Denies having any headache,N/V. - Related Data Allergies Allergy/AdvReac Type Severity Reaction Status Date / Time Sulfa (Sulfonamide Allergy Cannot Verified 05/14/20 23:08 Antibiotics) Remember Home Meds: Home Meds Amitriptyline [Elavil] 20 mg PO BEDTIME 03/26/16 [History] ClomiPRAMINE [ClomiPRAMINE HCl] 25 mg PO BEDTIME 03/26/16 [History] ClomiPRAMINE [ClomiPRAMINE HCl] 50 mg PO BID 03/26/16 [History] Ferrous Gluconate 325 mg PO WITHBREAKFAST 03/26/16 [History] Levothyroxine 25 mcg PO DAILY@0600 03/26/16 [History] Multivitamin [Daily Violeta] 1 tab PO DAILY 03/26/16 [History] Simvastatin [Zocor] 20 mg PO BEDTIME 03/26/16 [History] amLODIPine [Norvasc] 5 mg PO DAILY 03/26/16 [History] SitaGLIPtin [Januvia] 25 mg PO DAILY #30 tablet 03/31/16 [Rx] Acetaminophen [Tylenol] 325 - 650 mg PO Q4H PRN 12/25/18 [History] Calcium Carbonate/Vitamin D3 [Calcium 600 + Vit D 200] 1 tab PO BIDMEALS [History] Ciclopirox [Loprox 0.77% Crm] 1 applic TOP BID PRN 12/25/18 [History] Enalapril [Vasotec] 5 mg PO DAILY 12/25/18 [History] Fluocinolone Acetonide 1 applic TOP BID PRN 12/25/18 [History] Fluorometholone [Fluorometholone 0.1% Ophth Susp] 1 drop EYEBOTH DAILY 12/25/18 [History] Latanoprost [Xalatan 0.005% Ophth Soln] 1 drop EYEBOTH BEDTIME 12/25/18 [History] Loperamide HCl [Loperamide] 2 - 4 mg PO ASDIRECTED PRN 12/25/18 [History] Potassium Chloride 10 meq PO DAILY 12/25/18 [History] Triamcinolone Acetonide [Triamcinolone Acetonide 0.1% Crm] 1 applic TOP TID PRN 12/25/18 [History] polyethylene glycoL 3350 [MiraLAX] 17 gm PO DAILY PRN 12/25/18 [History] Azithromycin [Zithromax] 250 mg PO DAILY@1400 #4 tablet 12/26/18 [Rx] Rivaroxaban [Xarelto] 15 mg PO WITHDINNER 12/26/18 [History] Glycerin 1 each RC DAILY PRN #12 supp.rect 12/30/18 [Rx] Past Medical History Cardiovascular History: Reports: Afib, Heart Failure, Heart Murmur, High Ch olesterol, Hypertension, Other (See Below) Respiratory History: Reports: None Gastrointestinal History: Reports: Other (See Below) Other Gastrointestinal History: Colitis Genitourinary History: Reports: Urinary Incontinence 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: Musculoskeletal History: Reports: Arthritis, Fracture Neurological History: Reports: TIA Psychiatric History: Reports: Depression Endocrine/Metabolic History: Reports: Diabetes, Type II, Hypothyroidism Dermatologic History: Reports: Eczema, Other (See Below) Other Dermatologic History: had for a long time - Infectious Disease History Infectious Disease History: Reports: Chicken Pox, Influenza, Measles - Past Surgical History HEENT Surgical History: Reports: Cataract Surgery Social & Family History - Family History Family Medical History: Noncontributory - Caffeine Use Caffeine Use: Reports: Coffee, Soda Other Caffeine Use: flavored water. ED ROS GENERAL - Review of Systems Review Of Systems: See Below Constitutional: Reports: No Symptoms HEENT: Reports: No Symptoms Respiratory: Reports: No Symptoms Cardiovascular: Reports: No Symptoms Endocrine: Reports: No Symptoms GI/Abdominal: Reports: No Symptoms : Reports: No Symptoms Musculoskeletal: Reports: No Symptoms Skin: Reports: No Symptoms Neurological: Reports: No Symptoms Psychiatric: Reports: No Symptoms Hematologic/Lymphatic: Reports: No Symptoms ED EXAM, HEAD INJURY - Physical Exam Exam: See Below Exam Limited By: No Limitations General Appearance: Alert, No Apparent Distress Head: Atraumatic, Normocephalic Eyes: Bilateral Eye: PERRL Ears: Normal External Exam, Normal Canal, Hearing Grossly Normal Nose: Normal Inspection, Normal Mucousa, No Blood Throat/Mouth: Normal Inspection, Normal Lips, Normal Teeth, Normal Gums Neck: Non-Tender, Full Range of Motion, Normal Alignment, Normal Inspection Respiratory: No Respiratory Distress, Lungs Clear, Normal Breath Sounds Cardiovascular: Normal Peripheral Pulses, Regular Rate, Rhythm, No Edema, No Gallop GI/Abdominal Exam: Normal Bowel Sounds, Soft, Non-Tender, No Organomegaly Back Exam: Normal Inspection, Full Range of Motion Extremities: Normal Inspection, Normal Range of Motion, Non-Tender 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 As Tested, No Motor/Sensory Deficits Skin: Other (bruising rt arm/elbow) Course - Vital Signs Text/Narrative:: Head CT -neg Last Recorded V/S: Last Vital Signs Temp 36.7 C 05/14/20 22:55 Pulse 81 05/14/20 22:55 Resp 22 H 05/14/20 22:55 BP 151/59 H 05/14/20 22:55 Pulse Ox 96 05/14/20 22:55 - Orders/Labs/Meds Orders: Active Orders 24 hr Category Date Time Status Head wo Cont [CT] Stat Exams 05/14/20 23:07 Taken Departure - Departure Time of Disposition: 00:30 Disposition: Home, Self-Care 01 Condition: Good Clinical Impression: Closed head injury - Discharge Information Instructions: Head Injury, Adult, [id number] Referrals: Jhoan Rivera MD [Primary Care Provider] - Forms: ED Department Discharge Additional Instructions: Please read discharge instructions on closed head injury Take tylenol 1000 every 8 hours as needed for headache if you develop one later on Follow up as needed Sepsis Event Note (ED) - Focused Exam Vital Signs: Vital Signs Temp Pulse Resp BP Pulse Ox 05/14/20 22:55 36.7 C 81 22 H 151/59 H 96 - My Orders Last 24 Hours: My Active Orders 05/14/20 23:07 Head wo Cont [CT] Stat - Assessment/Plan Last 24 Hours: My Active Orders 05/14/20 23:07 Head wo Cont [CT] Stat
== END 2020-05-15 00:13 | disposition home or self-care (01) ==
LOC: FB.ED 22:54
DX: S09.90XA Unspecified injury of head, initial encounter (principal); S40.021A Contusion of right upper arm, initial encounter; S50.01XA Contusion of right elbow, initial encounter; I48.91 Unspecified atrial fibrillation; E78.00 Pure hypercholesterolemia, unspecified; I11.0 Hypertensive heart disease with heart failure; I50.9 Heart failure, unspecified; E11.9 Type 2 diabetes mellitus without complications; E03.9 Hypothyroidism, unspecified; F32.9 Major depressive disorder, single episode, unspecified; Z79.899 Other long term (current) drug therapy; Z79.84 Long term (current) use of oral hypoglycemic drugs; Z88.2 Allergy status to sulfonamides; W01.0XXA Fall on same level from slipping, tripping and stumbling without subsequent striking against object, initial encounter
CPT/HCPCS: 70450; 99283-25

== ENCOUNTER 2020-09-11 | Observation (INO) | payer MEDICARE ==
--- NOTE | 2020-09-11 00:58 | EDM.PDOC ---
ED HPI GENERAL MEDICAL PROBLEM - General Chief Complaint: General Stated Complaint: COVID Time Seen by Provider: 09/11/20 00:51 Source of Information: Reports: Patient History Limitations: Reports: Altered Mental Status - History of Present Illness INITIAL COMMENTS - FREE TEXT/NARRATIVE: 85 yo diagnosed with COVID 19 since 09/04. Was at [facility] in [place] today and received the antibody infusion ,bamlanivimab.She came in tonight with fatigue,feeling poorly and having a headache. She diens any SOB or fever. Her appetite has been low. She has a h/o HTN,DM2,Schizoaffective disorde r,Anxiety.,Lives independently in [place]. 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 Frontal Headache Pain Score (Numeric/FACES): 8 - Related Data Allergies Allergy/AdvReac Type Severity Reaction Status Date / Time Sulfa (Sulfonamide Allergy Cannot Verified 05/14/20 23:08 Antibiotics) Remember Home Meds: Home Meds Amitriptyline [Elavil] 20 mg PO BEDTIME 03/26/16 [History] ClomiPRAMINE [ClomiPRAMINE HCl] 25 mg PO BEDTIME 03/26/16 [History] ClomiPRAMINE [ClomiPRAMINE HCl] 50 mg PO BID 03/26/16 [History] Ferrous Gluconate 325 mg PO WITHBREAKFAST 03/26/16 [History] Levothyroxine 25 mcg PO DAILY@0600 03/26/16 [History] Multivitamin [Daily Violeta] 1 tab PO DAILY 03/26/16 [History] Simvastatin [Zocor] 20 mg PO BEDTIME 03/26/16 [History] amLODIPine [Norvasc] 5 mg PO DAILY 03/26/16 [History] SitaGLIPtin [Januvia] 25 mg PO DAILY #30 tablet 03/31/16 [Rx] Acetaminophen [Tylenol] 325 - 650 mg PO Q4H PRN 12/25/18 [History] Calcium Carbonate/Vitamin D3 [Calcium 600 + Vit D 200] 1 tab PO BIDMEALS 12/25/18 [History] Ciclopirox [Loprox 0.77% Crm] 1 applic TOP BID PRN 12/25/18 [History] Enalapril [Vasotec] 5 mg PO DAILY 12/25/18 [History] Fluocinolone Acetonide 1 applic TOP BID PRN 12/25/18 [History] Fluorometholone [Fluorometholone 0.1% Ophth Susp] 1 drop EYEBOTH DAILY 12/25/18 [History] Latanoprost [Xalatan 0.005% Ophth Soln] 1 drop EYEBOTH BEDTIME 12/25/18 [History] Loperamide HCl [Loperamide] 2 - 4 mg PO ASDIRECTED PRN 12/25/18 [History] Potassium Chloride 10 meq PO DAILY 12/25/18 [History] Triamcinolone Acetonide [Triamcinolone Acetonide 0.1% Crm] 1 applic TOP TID PRN 12/25/18 [History] polyethylene glycoL 3350 [MiraLAX] 17 gm PO DAILY PRN 12/25/18 [History] Azithromycin [Zithromax] 250 mg PO DAILY@1400 #4 tablet 12/26/18 [Rx] Rivaroxaban [Xarelto] 15 mg PO WITHDINNER 12/26/18 [History] Glycerin 1 each RC DAILY PRN #12 supp.rect 12/30/18 [Rx] Past Medical History Cardiovascular History: Reports: Afib, Heart Failure, Heart Murmur, High Cholesterol, Hypertension, Other (See Below) Respiratory History: Reports: None Gastrointestinal History: Reports: Other (See Below) Other Gastrointestinal History: Colitis Genitourinary History: Reports: Urinary Incontinence 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: Musculoskeletal History: Reports: Arthritis, Fracture Neurological History: Reports: TIA Psychiatric History: Reports: Depression Endocrine/Metabolic History: Reports: Diabetes, Type II, Hypothyroidism Dermatologic History: Reports: Eczema, Other (See Below) Other Dermatologic History: had for a long time - Infectious Disease History Infectious Disease History: Reports: Chicken Pox, Influenza, Measles - Past Surgical History HEENT Surgical History: Reports: Cataract Surgery Other HEENT Surgeries/Procedures: both eyes Cardiovascular Surgical History: Reports: None Female Surgical History: Reports: None Endocrine Surgical History: Reports: None Social & Family History - Family History Family Medical History: No Pertinent Family History - Tobacco Use Tobacco Use Status *Q: Former Tobacco User Used Tobacco, but Quit: No - Caffeine Use Caffeine Use: Reports: Coffee Other Caffeine Use: 4 cups daily - Recreational Drug Use Recreational Drug Use: No ED ROS GENERAL - Review of Systems Review Of Systems: Comprehensive ROS is negative, except as noted in HPI. ED EXAM, GENERAL - Physical Exam Exam: See Below Exam Limited By: No Limitations General Appearance: Alert Ears: Normal External Exam Nose: Normal Inspection Throat/Mouth: Normal Inspection Head: Atraumatic Neck: Normal Inspection Course - Vital Signs Last Recorded V/S: Last Vital Signs Temp 98.3 F 09/11/20 00:53 Pulse 98 09/11/20 00:53 Resp 18 12 00:53 BP 163/74 H 09/11/20 00:53 Pulse Ox 93 L 09/11/20 00:53 - Orders/Labs/Meds Orders: Active Orders 24 hr Category Date Time Status Chest 1V Frontal [CR] Stat Exams 09/11/20 00:02 Taken C-REACTIVE PROTEIN [CHEM] Stat Lab 09/11/20 00:20 Received UA W/MICROSCOPIC [URIN] Stat Lab 09/11/20 00:03 Ordered Labs: Laboratory Tests 09/11/20 09/11/20 09/11/20 Range/Units 00:20 00:20 00:20 WBC 12.3 H (3.0-10.3) x10-3/uL RBC 3.94 (3.60-5.20) x10(6)uL Hgb 11.6 (11.4-15.5) g/dL Hct 36.1 (34.2-48.2) % MCV 91.5 (76.7-100.5) fL MCH 29.4 (23.9-33.9) pg MCHC 32.1 (31.9-34.8) g/dL RDW 14.6 (12.3-16.5) % Plt Count 163 (151-488) x10(3)uL MPV 8.7 (7.1-12.4) fL Neut % (Auto) 90.2 H (30.8-76.2) % Lymph % (Auto) 4.5 L (18.4-52.1) % [place] % (Auto) 5.2 (4.4-15.7) % Eos % (Auto) 0.0 L (0.6-8.1) % Baso % (Auto) 0.1 L (0.2-1.5) % Neut # (Auto) 11.0 H (1.5-6.3) x10-3/uL Lymph # (Auto) 0.5 L (1.0-4.4) x10-3/uL [place] # (Auto) 0.6 (0.3-1.0) x10-3/uL Eos # (Auto) 0.0 (0.0-0.8) x10-3/uL Baso # (Auto) 0.0 (0.0-0.1) x10-3/uL Sodium 128 L D (135-145) mmol/L Potassium 4.6 (3.5-5.3) mmol/L Chloride 92 L D (100-110) mmol/L Carbon Dioxide 29 (21-32) mmol/L BUN 25 H (7-18) mg/dL Creatinine 0.9 (0.55-1.02) mg/dL Est Cr Clr Drug Dosing 42.62 mL/min Estimated GFR (MDRD) 60 (>60) BUN/Creatinine Ratio 27.8 H (9-20) Glucose 186 H (80-116) mg/dL Lactic Acid (0.4-2.0) mmol/L Calcium 9.2 (8.6-10.2) mg/dL Troponin I 28.3 (4.0-60.3) pg/mL 09/11/20 Range/Units 00:20 WBC (3.0-10.3) x10-3/uL RBC (3.60-5.20) x10(6)uL Hgb (11.4-15.5) g/dL Hct (34.2-48.2) % MCV (76.7-100.5) fL MCH (23.9-33.9) pg MCHC (31.9-34.8) g/dL RDW (12.3-16.5) % Plt Count (151-488) x10(3)uL MPV (7.1-12.4) fL Neut % (Auto) (30.8-76.2) % Lymph % (Auto) (18.4-52.1) % [place] % (Auto) (4.4-15.7) % Eos % (Auto) (0.6-8.1) % Baso % (Auto) (0.2-1.5) % Neut # (Auto) (1.5-6.3) x10-3/uL Lymph # (Auto) (1.0-4.4) x10-3/uL [place] # (Auto) (0.3-1.0) x10-3/uL Eos # (Auto) (0.0-0.8) x10-3/uL Baso # (Auto) (0.0-0.1) x10-3/uL Sodium (135-145) mmol/L Potassium (3.5-5.3) mmol/L Chloride (100-110) mmol/L Carbon Dioxide (21-32) mmol/L BUN (7-18) mg/dL Creatinine (0.55-1.02) mg/dL Est Cr Clr Drug Dosing mL/min Estimated GFR (MDRD) (>60) BUN/Creatinine Ratio (9-20) Glucose (80-116) mg/dL Lactic Acid 0.5 (0.4-2.0) mmol/L Calcium (8.6-10.2) mg/dL Troponin I (4.0-60.3) pg/mL Departure - Departure Time of Disposition: 00:55 Disposition: Refer to Observation Clinical Impression: COVID-19 - Discharge Information Referrals: PCP,None [Primary Care Provider] - Forms: ED Department Discharge Sepsis Event Note (ED) - Evaluation Sepsis Screening Result: No Definite Risk - Focused Exam Vital Signs: Vital Signs Temp Pulse Resp BP Pulse Ox 09/11/20 00:53 98.3 F 98 18 163/74 H 93 L 09/11/20 00:12 97.4 F 92 18 176/80 H 92 L - Problem List & Annotations (1) COVID-19 SNOMED Code(s): 385269127 Code(s): U07.1 - COVID-19 Status: Acute Current Visit: Yes (2) Hyponatremia syndrome SNOMED Code(s): 8827895 Code(s): E87.1 - HYPO-OSMOLALITY AND HYPONATREMIA Status: Acute Current Visit: Yes (3) Diabetes type 2, controlled SNOMED Code(s): 78844160, 777750476 Code(s): E11.9 - TYPE 2 DIABETES MELLITUS WITHOUT COMPLICATIONS Status: Acute Current Visit: Yes (4) Anxiety SNOMED Code(s): 83098838 Code(s): F41.9 - ANXIETY DISORDER, UNSPECIFIED Status: Acute Current Visit: No - Problem List Review Problem List Initiated/Reviewed/Updated: Yes - My Orders Last 24 Hours: My Active Orders 09/11/20 00:02 Chest 1V Frontal [CR] Stat 09/11/20 00:03 UA W/MICROSCOPIC [URIN] Stat 09/11/20 00:20 C-REACTIVE PROTEIN [CHEM] Stat - Assessment/Plan Last 24 Hours: My Active Orders 09/11/20 00:02 Chest 1V Frontal [CR] Stat 09/11/20 00:03 UA W/MICROSCOPIC [URIN] Stat 09/11/20 00:20 C-REACTIVE PROTEIN [CHEM] Stat Plan: Admit for IV fluid supplantation,encourage oral.
[2020-09-11] MEDS ORDERED: Enoxaparin 30 MG/0.3 ML Syringe SUBCUT SCH (01:00)
[2020-09-11] MEDS: Sodium Chloride 0.9% 1,000 ML IV SCH ×2 (02:00→16:34)
[2020-09-11] MEDS: Acetaminophen 325 MG Tab PO PRN ×2 (02:00→13:05)
[2020-09-11] MEDS ORDERED: Sodium Chloride 0.9% 10 ML SDV FLUSH SCH (05:00)
--- NOTE | 2020-09-11 11:32 | CR ---
INDICATION: Cough. Positive for COVID. CHEST ONE VIEW: Single AP upright portable view of the chest was obtained 09/11/20 and compared with 10/08/19 and 12/25/18. There is elevation of the left hemidiaphragm which could be on the basis of a subpulmonic effusion. Infiltrate is suggested in the lingula and left lower lobe compatible with pneumonia and pleuritis. There appears to be some infiltration with minimal consolidation in the left upper lobe. Overlying EKG lead snaps are noted. The right lung and pleural space remained unremarkable. 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 The heart appears slightly prominent in size, but is emphasized by rotation and AP positioning. The aorta is calcified in the arch and descending portion. IMPRESSION: Left basilar pneumonia and pleuritis with significant pleural effusion possible. No evidence of CHF is identified. Cannot exclude COVID-19 pneumonia. However, since there is some infiltrate in the left upper lobe additionally, it certainly would be a consideration. Report was given Dr. Raman at approximately 1105 hours. [facility]
[2020-09-11] MEDS: Azithromycin 500 MG in Sodium Chloride 0.9% 250 ML IV SCH (12:22)
[2020-09-11] MEDS: cefTRIAXone 1 GM Vial IVPUSH SCH (12:24)
--- NOTE | 2020-09-11 13:52 | PCM.HP.2 ---
H&P History of Present Illness - General Date of Service: 09/11/20 Admit Problem/Dx: Admission Diagnosis/Problem Admission Diagnosis/Problem Hyponatremia Source of Information: Patient, EMS Notes Reviewed, Old Records - History of Present Illness Initial Comments - Free Text/Narative: Kylah started having fevers first part of September, she had TeleHealth visit for Covid, came back positive on the , [facility] called her on the as she met criteria for Bamlanivimab infusion, she had infusion yesterday. Present to ER around midnight today with headache, fatigue, cough and feeling poorly. Lorenzo es any fevers, chills, shortness of breath, nausea, vomiting, or diarrhea. History of Diabetes, Hypertension, glaucoma and schizoaffective disorder. Resides at [facility]. Had chest x-ray this am, showed Left lower lobe and right upper lobe pneumonia, WBC was 12.3, Neutrophils 90%, CRP 26.0, Sodium was 128, Cr 0.9. Her baseline sodium on 02/2020 at [facility] was 135. She has been on Amitriptyline since at least March 2019. Sodium last year was 136. Frontal Headache Pain Score (Numeric/FACES): 2 - Related Data Allergies/Adverse Reactions: Allergies Allergy/AdvReac Type Severity Reaction Status Date / Time Sulfa (Sulfonamide Allergy Cannot Verified 05/14/20 23:08 Antibiotics) Remember Home Medications: Home Meds Amitriptyline [Elavil] 10 mg PO BEDTIME 03/26/16 [History] ClomiPRAMINE [ClomiPRAMINE HCl] 25 mg PO BEDTIME 03/26/16 [History] ClomiPRAMINE [ClomiPRAMINE HCl] 50 mg PO BID 03/26/16 [History] Levothyroxine 25 mcg PO DAILY@0600 03/26/16 [History] Multivitamin [Daily Violeta] 1 tab PO DAILY@1200 03/26/16 [History] Simvastatin [Zocor] 20 mg PO BEDTIME 03/26/16 [History] SitaGLIPtin [Januvia] 25 mg PO DAILY #30 tablet 03/31/16 [Rx] Calcium Carbonate/Vitamin D3 [Calcium 600 + Vit D 200] 1 tab PO BIDMEALS 12/25/18 [History] Ciclopirox [Loprox 0.77% Crm] 1 applic TOP BID PRN 12/25/18 [History] Enalapril [Vasotec] 5 mg PO DAILY 12/25/18 [History] Fluocinolone Acetonide 1 applic TOP BID PRN 12/25/18 [History] Fluorometholone [Fluorometholone 0.1% Ophth Susp] 1 drop EYEBOTH DAILY 12/25/18 [History] Latanoprost [Xalatan 0.005% Ophth Soln] 1 drop EYEBOTH BEDTIME 12/25/18 [History] Potassium Chloride 10 meq PO DAILY 12/25/18 [History] Docusate Sodium/Sennosides [Senna Plus] 2 tab PO DAILY 09/11/20 [History] Ferrous Gluconate 324 mg PO DAILY 09/11/20 [History] Furosemide [Lasix] 40 mg PO DAILY 09/11/20 [History] Rivaroxaban [Xarelto] 20 mg PO WITHDINNER 09/11/20 [History] Past Medical History Cardiovascular History: Reports: Afib, Heart Failure, Heart Murmur, High Cholesterol, Hypertension, Other (See Below) Respiratory History: Reports: None Other Respiratory History: Covid-19 positive. Gastrointestinal History: Reports: Other (See Below) Other Gastrointestinal History: Colitis Genitourinary History: Reports: Urinary Incontinence [employer] ME[employer]IC History: Reports: Musculoskeletal History: Reports: Arthritis, Fracture Neurological History: Reports: TIA Psychiatric History: Reports: Depression Endocrine/Metabolic History: Reports: Diabetes, Type II, Hypothyroidism Dermatologic History: Reports: Eczema, Other (See Below) Other Dermatologic History: had for a long time - Infectious Disease History Infectious Disease History: Reports: Chicken Pox, Influenza, Measles - Past Surgical History HEENT Surgical History: Reports: Cataract Surgery Other HEENT Surgeries/Procedures: both eyes Cardiovascular Surgical History: Reports: None Female Surgical History: Reports: None Endocrine Surgical History: Reports: None Social & Family History - Family History Family Medical History: No Pertinent Family History - Tobacco Use Tobacco Use Status *Q: Former Tobacco User Used Tobacco, but Quit: No - Caffeine Use Caffeine Use: Reports: Coffee Other Caffeine Use: 4 cups daily - Recreational Drug Use Recreational Drug Use: No H&P Review of Systems - Review of Systems: Review Of Systems: See Below General: Reports: Fatigue HEENT: Reports: No Symptoms Pulmonary: Reports: Cough. Denies: Shortness of Breath Cardiovascular: Reports: No Symptoms Gastrointestinal: Reports: No Symptoms Genitourinary: Reports: No Symptoms Musculoskeletal: Reports: No Symptoms Skin: Reports: No Symptoms Psychiatric: Reports: No Symptoms Neurological: Reports: Headache Hematologic/Lymphatic: Reports: No Symptoms Immunologic: Reports: No Symptoms Exam - Exam Exam: See Below - Vital Signs Vital Signs: Last Vital Signs Temp 98.6 F 09/11/20 06:29 Pulse 86 09/11/20 06:29 Resp 20 09/11/20 06:29 BP 118/68 09/11/20 06:29 Pulse Ox 93 L 09/11/20 06:29 Weight: 207 lb 7 oz - Exam General: Alert, Oriented, Cooperative. No: Mild Distress HEENT: PERRLA, Conjunctiva Clear, EOMI, Hearing Intact, Mucosa Moist & [place], Glasses Neck: Trachea Midline Lungs: Clear to Auscultation (RLL), Normal Respiratory Effort, Decreased Breath Sounds (LLL), Crackles (LLL). No: Wheezing Cardiovascular: Regular Rate, Regular Rhythm GI/Abdominal Exam: Normal Bowel Sounds, Soft, Non-Tender, No Distention (Female) Exam: Deferred Rectal (Female) Exam: Deferred Extremities: No Pedal Edema, Normal Capillary Refill Peripheral Pulses: 2+: Radial (L), Radial (R) Psychiatric: Alert, Normal Affect, Normal Mood - Patient Data Lab Results Last 24 hrs: Laboratory Results - last 24 hr 09/11/20 09/11/20 09/11/20 Range/Units 00:20 00:20 00:20 WBC 12.3 H (3.0-10.3) x10-3/uL RBC 3.94 (3.60-5.20) x10(6)uL Hgb 11.6 (11.4-15.5) g/dL Hct 36.1 (34.2-48.2) % MCV 91.5 (76.7-100.5) fL MCH 29.4 (23.9-33.9) pg MCHC 32.1 (31.9-34.8) g/dL RDW 14.6 (12.3-16.5) % Plt Count 163 (151-488) x10(3)uL MPV 8.7 (7.1-12.4) fL Neut % (Auto) 90.2 H (30.8-76.2) % Lymph % (Auto) 4.5 L (18.4-52.1) % Merrick % (Auto) 5.2 (4.4-15.7) % Eos % (Auto) 0.0 L (0.6-8.1) % Baso % (Auto) 0.1 L (0.2-1.5) % Neut # (Auto) 11.0 H (1.5-6.3) x10-3/uL Lymph # (Auto) 0.5 L (1.0-4.4) x10-3/uL Merrick # (Auto) 0.6 (0.3-1.0) x10-3/uL Eos # (Auto) 0.0 (0.0-0.8) x10-3/uL Baso # (Auto) 0.0 (0.0-0.1) x10-3/uL Sodium 128 L D (135-145) mmol/L Potassium 4.6 (3.5-5.3) mmol/L Chloride 92 L D (100-110) mmol/L Carbon Dioxide 29 (21-32) mmol/L BUN 25 H (7-18) mg/dL Creatinine 0.9 (0.55-1.02) mg/dL Est Cr Clr Drug Dosing 42.62 mL/min Estimated GFR (MDRD) 60 (>60) BUN/Creatinine Ratio 27.8 H (9-20) Glucose 186 H (80-116) mg/dL POC Glucose (74-100) mg/dL Lactic Acid (0.4-2.0) mmol/L Calcium 9.2 (8.6-10.2) mg/dL Total Bilirubin (0.1-1.3) mg/dL AST (5-25) IU/L ALT (12-36) U/L Alkaline Phosphatase (56-112) IU/L Troponin I 28.3 (4.0-60.3) pg/mL C-Reactive Protein (0.5-0.9) mg/dL Total Protein (6.0-8.0) g/dL Albumin (3.2-4.6) g/dL Globulin g/dL Albumin/Globulin Ratio Urine Color (YELLOW) Urine Appearance (CLEAR) Urine pH (5.0-6.5) Ur Specific Buda (1.010-1.025) Urine Protein (NEGATIVE) mg/dL Urine Glucose (UA) (NORMAL) mg/dL Urine Ketones (NEGATIVE) mg/dL Urine Occult Blood (NEGATIVE) Urine Nitrite (NEGATIVE) Urine Bilirubin (NEGATIVE) Urine Urobilinogen (NEGATIVE) mg/dL Ur Leukocyte Esterase (NEGATIVE) Urine WBC (0-5) Ur Squamous Epith Cells (NS,R,O) Urine Bacteria (NS) 09/11/20 09/11/20 09/11/20 Range/Units 00:20 00:20 05:45 WBC (3.0-10.3) x10-3/uL RBC (3.60-5.20) x10(6)uL Hgb (11.4-15.5) g/dL Hct (34.2-48.2) % MCV (76.7-100.5) fL MCH (23.9-33.9) pg MCHC (31.9-34.8) g/dL RDW (12.3-16.5) % Plt Count (151-488) x10(3)uL MPV (7.1-12.4) fL Neut % (Auto) (30.8-76.2) % Lymph % (Auto) (18.4-52.1) % Merrick % (Auto) (4.4-15.7) % Eos % (Auto) (0.6-8.1) % Baso % (Auto) (0.2-1.5) % Neut # (Auto) (1.5-6.3) x10-3/uL Lymph # (Auto) (1.0-4.4) x10-3/uL Merrick # (Auto) (0.3-1.0) x10-3/uL Eos # (Auto) (0.0-0.8) x10-3/uL Baso # (Auto) (0.0-0.1) x10-3/uL Sodium (135-145) mmol/L Potassium (3.5-5.3) mmol/L Chloride (100-110) mmol/L Carbon Dioxide (21-32) mmol/L BUN (7-18) mg/dL Creatinine (0.55-1.02) mg/dL Est Cr Clr Drug Dosing mL/min Estimated GFR (MDRD) (>60) BUN/Creatinine Ratio (9-20) Glucose (80-116) mg/dL POC Glucose (74-100) mg/dL Lactic Acid 0.5 (0.4-2.0) mmol/L Calcium (8.6-10.2) mg/dL Total Bilirubin (0.1-1.3) mg/dL AST (5-25) IU/L ALT (12-36) U/L Alkaline Phosphatase (56-112) IU/L Troponin I (4.0-60.3) pg/mL C-Reactive Protein 26.0 H* (0.5-0.9) mg/dL Total Protein (6.0-8.0) g/dL Albumin (3.2-4.6) g/dL Globulin g/dL Albumin/Globulin Ratio Urine Color Yellow (YELLOW) Urine Appearance Slightly cloudy (CLEAR) Urine pH 6.0 (5.0-6.5) Ur Specific Buda 1.015 (1.010-1.025) Urine Protein 500 H (NEGATIVE) mg/dL Urine Glucose (UA) 100 H (NORMAL) mg/dL Urine Ketones Negative (NEGATIVE) mg/dL Urine Occult Blood Moderate H (NEGATIVE) Urine Nitrite Negative (NEGATIVE) Urine Bilirubin Negative (NEGATIVE) Urine Urobilinogen Normal (NEGATIVE) mg/dL Ur Leukocyte Esterase Negative (NEGATIVE) Urine WBC 0-5 (0-5) Ur Squamous Epith Cells Moderate H (NS,R,O) Urine Bacteria Few H (NS) 09/11/20 09/11/20 09/11/20 Range/Units 06:45 06:45 11:31 WBC 9.7 (3.0-10.3) x10-3/uL RBC 3.87 (3.60-5.20) x10(6)uL Hgb 11.4 (11.4-15.5) g/dL Hct 35.5 (34.2-48.2) % MCV 91.8 (76.7-100.5) fL MCH 29.5 (23.9-33.9) pg MCHC 32.2 (31.9-34.8) g/dL RDW 14.3 (12.3-16.5) % Plt Count 154 (151-488) x10(3)uL MPV 8.9 (7.1-12.4) fL Neut % (Auto) 84.4 H (30.8-76.2) % Lymph % (Auto) 8.4 L (18.4-52.1) % Merrick % (Auto) 6.7 (4.4-15.7) % Eos % (Auto) 0.1 L (0.6-8.1) % Baso % (Auto) 0.4 (0.2-1.5) % Neut # (Auto) 8.2 H (1.5-6.3) x10-3/uL Lymph # (Auto) 0.8 L (1.0-4.4) x10-3/uL Merrick # (Auto) 0.6 (0.3-1.0) x10-3/uL Eos # (Auto) 0.0 (0.0-0.8) x10-3/uL Baso # (Auto) 0.0 (0.0-0.1) x10-3/uL Sodium 131 L (135-145) mmol/L Potassium 3.9 (3.5-5.3) mmol/L Chloride 94 L (100-110) mmol/L Carbon Dioxide 28 (21-32) mmol/L BUN 21 H (7-18) mg/dL Creatinine 0.8 (0.55-1.02) mg/dL Est Cr Clr Drug Dosing 47.95 mL/min Estimated GFR (MDRD) > 60 (>60) BUN/Creatinine Ratio 26.3 H (9-20) Glucose 115 (80-116) mg/dL POC Glucose 132 H (74-100) mg/dL Lactic Acid (0.4-2.0) mmol/L Calcium 9.1 (8.6-10.2) mg/dL Total Bilirubin 0.4 (0.1-1.3) mg/dL AST 24 D (5-25) IU/L ALT 29 D (12-36) U/L Alkaline Phosphatase 66 (56-112) IU/L Troponin I (4.0-60.3) pg/mL C-Reactive Protein (0.5-0.9) mg/dL Total Protein 6.9 (6.0-8.0) g/dL Albumin 2.8 L (3.2-4.6) g/dL Globulin 4.1 g/dL Albumin/Globulin Ratio 0.7 Urine Color (YELLOW) Urine Appearance (CLEAR) Urine pH (5.0-6.5) Ur Specific Buda (1.010-1.025) Urine Protein (NEGATIVE) mg/dL Urine Glucose (UA) (NORMAL) mg/dL Urine Ketones (NEGATIVE) mg/dL Urine Occult Blood (NEGATIVE) Urine Nitrite (NEGATIVE) Urine Bilirubin (NEGATIVE) Urine Urobilinogen (NEGATIVE) mg/dL Ur Leukocyte Esterase (NEGATIVE) Urine WBC (0-5) Ur Squamous Epith Cells (NS,R,O) Urine Bacteria (NS) Result Diagrams: 09/11/20 06:45 09/11/20 06:45 Sepsis Event Note - Evaluation Sepsis Screening Result: No Definite Risk - Focused Exam Vital Signs: Vital Signs Temp Pulse Resp BP Pulse Ox 09/11/20 06:29 98.6 F 86 20 118/68 93 L 09/11/20 02:30 98.5 F 93 20 148/72 H 93 L - Problem List (1) Acute hyponatremia SNOMED Code(s): 1790452 ICD Code: E87.1 - HYPO-OSMOLALITY AND HYPONATREMIA Status: Acute Current Visit: Yes Problem Details: Had baseline sodium of 135, 136 at 6 months & 1 yr ago. No preinfusion labs were done, possible reaction to Bamlanivimab infusion, not listed side effect but is still under EUA. Reported to FDAwatch by pharmacy since she was admitted. Corrected to 131 this morning, repeat lab tomorrow. (2) COVID-19 SNOMED Code(s): 030347669 ICD Code: U07.1 - COVID-19 Status: Acute Current Visit: Yes Problem Details: Had Bamlanivimab infusion on 09/10. 93% on Room Air. Does not met criteria for Remdesivir or Dexamethasone treatment. (3) Pneumonia SNOMED Code(s): 913795682 ICD Code: J18.9 - PNEUMONIA, UNSPECIFIED ORGANISM Status: Acute Current Visit: No Problem Details: Chest x-ray showed bilateral pneumonia, could be COVID related, her WBC initially was elevated and her neutrophil were 90% & 84% today. Will treat for secondary bacterial pneumonia since she has received Bamlanivimab. Started on Rocephin 1 gm IV q24h, Azithromycin 500 mg IV q24h, will see how she does overnight and possible discharge tomow or Tuesday if stable. Qualifiers: Pneumonia type: due to unspecified organism Laterality: bilateral Lung location: unspecified part of lung Qualified Code(s): J18.9 - Pneumonia, unspecified organism (4) Diabetes type 2, controlled SNOMED Code(s): 29089295, 665503983 ICD Code: E11.9 - TYPE 2 DIABETES MELLITUS WITHOUT COMPLICATIONS Status: Chronic Current Visit: Yes Qualifiers: Diabetes mellitus long winder tender insulin use: without longterm use (5) HTN (hypertension) SNOMED Code(s): 76607406 ICD Code: I10 - ESSENTIAL (PRIMARY) HYPERTENSION Status: Chronic Current Visit: No Qualifiers: Hypertension type: essential hypertension Qualified Code(s): I10 - Essential (primary) hypertension (6) Schizoaffective disorder SNOMED Code(s): 28665414 ICD Code: F25.9 - SCHIZOAFFECTIVE DISORDER, UNSPECIFIED Status: Chronic Current Visit: Yes Problem List Initiated/Reviewed/Updated: Yes Orders Last 24hrs: Active Orders 24 hr Category Date Time Status Patient Status [ADT] Routine ADT 09/11/20 00:59 Active Height and Weight [RC] 06 Care 09/11/20 00:59 Active Oxygen Therapy [RC] QSHIFT Care 09/11/20 00:59 Active Up With Assistance [RC] ASDIRECTED Care 09/11/20 00:59 Active Vital Signs [RC] Q8H Care 09/11/20 00:59 Active Consistent Carbohydrate Diet [DIET] Diet 09/11/20 Breakfast Ordered BASIC METABOLIC PANEL,BMP [CHEM] Routine Lab 09/12/20 06:00 Ordered Acetaminophen [TylenoL] Med 09/11/20 01:11 Active 650 mg PO TID PRN Azithromycin [Zithromax] 500 mg Med 09/11/20 11:30 Active Sodium Chloride 0.9% [Normal Saline (AdvBag)] 250 ml IV Q24H Sodium Chloride 0.9% [Normal Saline] 1,000 ml Med 09/11/20 01:00 Active IV ASDIRECTED Sodium Chloride 0.9% [Saline Flush] Med 09/11/20 07:29 Active 10 ml FLUSH ASDIRECTED PRN cefTRIAXone [Rocephin] Med 09/11/20 11:30 Active 1 gm IVPUSH Q24H Resuscitation Status Routine Resus Stat 09/11/20 00:59 Ordered Medication Orders Acetaminophen (Tylenol) 650 mg PO TID PRN PRN Reason: headache Last Admin: 09/11/20 13:05 Dose: 650 mg Documented by: Admin: 09/11/20 02:00 Dose: 650 mg Documented by: RUSSELL Ceftriaxone Sodium (Rocephin) 1 gm IVPUSH Q24H [facility] Last Admin: 09/11/20 12:24 Dose: 1 gm Documented by: TETO Sodium Chloride (Normal Saline) 1,000 mls @ 75 mls/hr IV ASDIRECTED [facility] Last Admin: 09/11/20 02:00 Dose: 75 mls/hr Documented by: RUSSELL Azithromycin 500 mg/ Sodium (Chloride) 250 mls @ 250 mls/hr IV Q24H [facility] Last Admin: 09/11/20 12:22 Dose: 250 mls/hr Documented by: TYESHA Sodium Chloride (Saline Flush) 10 ml FLUSH ASDIRECTED PRN PRN Reason: flush med Assessment/Plan Comment:: 1. Admit for observation of Acute hyponatremia, Pneumonia, Covid-19 positive. 2. Hyponatremia: NS at 75 ml/hr, repeat labs tomorrow. 3. Pneumonia: possibly covid related, but will treat for secondary bacterial pneumonia, elevated WBC, elevated neutrophils, recently received monoclonal antibody, Bamlanivimab: Rocephin 1 gm IV q24h, Azithromycin 500 mg IV q24h, repeat labs tomorrow. 4. Consistent carb diet. 5. DVT: on Xarelto at 1800. TEDs BLE. 6. CODE STATUS: FULL. - Mortality Measure Prognosis:: Poor
[2020-09-11] MEDS ORDERED: RIVAROXABAN 20 MG PO SCH (18:00)
[2020-09-11] MEDS: CLOMIPRAMINE 50 MG PO SCH (20:16)
[2020-09-11] MEDS ORDERED: Simvastatin 20 MG Tab *PTOM PO SCH (21:00)
[2020-09-12] MEDS: Sodium Chloride 0.9% 10 ML Syringe FLUSH PRN ×3 (02:59→12:11)
[2020-09-12] MEDS ORDERED: Levothyroxine 25 MCG Tab *PTOM PO SCH (06:00)
[2020-09-12] MEDS: CLOMIPRAMINE 50 MG PO SCH (08:33)
[2020-09-12] MEDS ORDERED: FERROUS GLUCONATE 324 MG PO SCH (09:00)
[2020-09-12 09:59] VITALS: PULSE 73
[2020-09-12] MEDS: cefTRIAXone 1 GM Vial IVPUSH SCH (10:52)
[2020-09-12] MEDS: Azithromycin 500 MG in Sodium Chloride 0.9% 250 ML IV SCH (10:58)
--- NOTE | 2020-09-12 11:14 | PCM.DCSUM1 ---
Discharge Summary - Hospital Course HPI Initial Comments: Kylah started having fevers first part of September, she had TeleHealth visit for Covid, came back positive on the , [place] called her on the as she met criteria for Bamlanivimab infusion, she had infusion yesterday. Present to ER around midnight today with headache, fatigue, cough and feeling poorly. Denies any fevers, chills, shortness of breath, nausea, vomiting, or diarrhea. History of Diabetes, Hypertension, glaucoma and schizoaffective disorder. Resides at [facility]. Had chest x-ray this am, showed Left lower lobe and right upper lobe pneumonia, WBC was 12.3, Neutrophils 90%, CRP 26.0, Sodium was 128, Cr 0.9. Her baseline sodium on 02/2020 at [place] was 135. She has been on Amitriptyline since at least March 2019. Sodium last year was 136. Diagnosis: Stroke: No - Discharge Data Discharge Date: 09/12/20 ([facility]) Discharge Disposition: Home, Home Health Agency Condition: Fair - Referral to Home Health Date of Face to Face Encounter: 09/12/20 Reason for Homebound Status: [facility], self-isolation due to Covid & pneumonia. Primary Care Physician: Jhoan Rivera MD Skilled Need: nursing assessments & teaching disease processes & medication management. Sodium repeat on 09/15 or 09/16. - Discharge Diagnosis/Problem(s) (1) Acute hyponatremia SNOMED Code(s): 4197398 ICD Code: E87.1 - HYPO-OSMOLALITY AND HYPONATREMIA Status: Acute Current Visit: Yes Problem Details: 132 today, improving. (2) COVID-19 SNOMED Code(s): 952207141 ICD Code: U07.1 - COVID-19 Status: Acute Current Visit: Yes Problem Details: Had Bamlanivimab infusion on 09/10. 93% on Room Air. Does not met criteria for Remdesivir or Dexamethasone treatment. (3) Pneumonia SNOMED Code(s): 878681539 ICD Code: J18.9 - PNEUMONIA, UNSPECIFIED ORGANISM Status: Acute Current Visit: No Problem Details: Chest x-ray showed bilateral pneumonia, could be COVID related, her WBC initially was elevated and her neutrophil were 90% & 84% today. Will treat for secondary bacterial pneumonia since she has received Bamlanivimab. day 2 of Rocephin & Azithromycin, desaturated overnight but on room air this morning. 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 Chest x-ray showed pneumonia but could not rule out bacterial component. WBC normalized, neutrophils improved today. Was started on Rocephin and Azithromycin yesterday morning, has received 2 doses of both prior to discharge. She desaturated overnight to 82% but back up to 92% this morning on room air, ambulating in her room without difficulty breathing. Stable, will discharge home today. - Patient Instructions Diet: Usual Diet as Tolerated Activity: As Tolerated Showering/Bathing: May Shower Notify Provider of: Fever, Increased Pain, Nausea and/or Vomiting (shortness of breath) Other/Special Instructions: Follow up with [facility] provider early next week for recheck of your sodium. Take all antibiotics as prescribed until gone. - Discharge Plan *PRESCRIPTION DRUG MONITORING PROGRAM REVIEWED*: Not Applicable *COPY OF PRESCRIPTION DRUG MONITORING REPORT IN PATIENT EARNESTINE: Not Applicable Prescriptions/Med Rec: Azithromycin 500 mg PO DAILY 3 Days #3 tablet Cefdinir 300 mg PO BID 5 Days #10 capsule Home Medications: Home Meds Amitriptyline [Elavil] 10 mg PO BEDTIME 03/26/16 [History] ClomiPRAMINE [ClomiPRAMINE HCl] 25 mg PO BEDTIME 03/26/16 [History] ClomiPRAMINE [ClomiPRAMINE HCl] 50 mg PO BID 03/26/16 [History] Levothyroxine 25 mcg PO DAILY@0600 03/26/16 [History] Multivitamin [Daily Violeta] 1 tab PO DAILY@1200 03/26/16 [History] Simvastatin [Zocor] 20 mg PO BEDTIME 03/26/16 [History] SitaGLIPtin [Januvia] 25 mg PO DAILY #30 tablet 03/31/16 [Rx] Calcium Carbonate/Vitamin D3 [Calcium 600 + Vit D 200] 1 tab PO BIDMEALS 12/25/18 [History] Ciclopirox [Loprox 0.77% Crm] 1 applic TOP BID PRN 12/25/18 [History] Enalapril [Vasotec] 5 mg PO DAILY 12/25/18 [History] Fluocinolone Acetonide 1 applic TOP BID PRN 12/25/18 [History] Fluorometholone [Fluorometholone 0.1% Ophth Susp] 1 drop EYEBOTH DAILY 12/25/18 [History] Latanoprost [Xalatan 0.005% Ophth Soln] 1 drop EYEBOTH BEDTIME 12/25/18 [History] Potassium Chloride 10 meq PO DAILY 12/25/18 [History] Docusate Sodium/Sennosides [Senna Plus] 2 tab PO DAILY 09/11/20 [History] Ferrous Gluconate 324 mg PO DAILY 09/11/20 [History] Furosemide [Lasix] 40 mg PO DAILY 09/11/20 [History] Rivaroxaban [Xarelto] 20 mg PO WITHDINNER 09/11/20 [History] Azithromycin 500 mg PO DAILY 3 Days #3 tablet 09/12/20 [Rx] Cefdinir 300 mg PO BID 5 Days #10 capsule 09/12/20 [Rx] Oxygen Therapy Mode: Room Air Forms: ED Department Discharge Referrals: Jhoan Rivera MD [Primary Care Provider] - - Discharge Summary/Plan Comment DC Time >30 min.: No - General Info Date of Service: 09/12/20 Subjective Update: feels better today, no headache. Cough. Would like to go home. Denies any shortness of breath. Eating and drinking well. Functional Status: Reports: Tolerating Diet, Ambulating, Urinating. Denies: New Symptoms - Patient Data Vitals - Most Recent: Last Vital Signs Temp 97.6 F 09/12/20 09:57 Pulse 73 09/12/20 09:57 Resp 18 09/12/20 09:57 BP 176/84 H 09/12/20 09:57 Pulse Ox 93 L 09/12/20 09:57 Weight - Most Recent: 211 lb 11.2 oz I&O - Last 24 hours: Intake & Output 09/11/20 09/12/20 09/12/20 22:59 06:59 14:59 Intake Total 756 506 104 Balance 756 506 104 Lab Results - Last 24 hrs: Laboratory Results - last 24 hr 09/11/20 09/12/20 Range/Units 11:31 06:15 Sodium 132 L (135-145) mmol/L Potassium 4.6 (3.5-5.3) mmol/L Chloride 97 L (100-110) mmol/L Carbon Dioxide 25 (21-32) mmol/L BUN 16 (7-18) mg/dL Creatinine 0.8 (0.55-1.02) mg/dL Est Cr Clr Drug Dosing 47.95 mL/min Estimated GFR (MDRD) > 60 (>60) BUN/Creatinine Ratio 20.0 (9-20) Glucose 165 H (80-116) mg/dL POC Glucose 132 H (74-100) mg/dL Calcium 8.3 L (8.6-10.2) mg/dL Med Orders - Current: Current Medications Acetaminophen (Tylenol) 650 mg PO TID PRN PRN Reason: headache Last Admin: 09/11/20 13:05 Dose: 650 mg Documented by: Ceftriaxone Sodium (Rocephin) 1 gm IVPUSH Q24H [facility] Last Admin: 09/12/20 10:52 Dose: 1 gm Documented by: Furosemide (Lasix) 40 mg PO DAILY [facility] Last Admin: 09/12/20 08:33 Dose: 40 mg Documented by: Azithromycin 500 mg/ Sodium (Chloride) 250 mls @ 250 mls/hr IV Q24H [facility] Last Admin: 09/12/20 10:58 Dose: 250 mls/hr Documented by: Levothyroxine Sodium (Levothyroxine) 25 mcg PO DAILY@0600 [facility] Last Admin: 09/12/20 06:37 Dose: 25 mcg Documented by: (Clomipramine [ Clomipramine Hcl] 50 Mg) *Ptom 50 mg PO BID [facility] Last Admin: 09/12/20 08:33 Dose: 50 mg Documented by: (Ferrous Gluconate [ Ferrous Gluconate] 324 Mg) *Ptom 324 mg PO DAILY [facility] Last Admin: 09/12/20 08:33 Dose: 324 mg Documented by: Rivaroxaban (Xarelto) 20 mg PO WITHDINNER [facility] Last Admin: 09/11/20 17:42 Dose: 20 mg Documented by: Simvastatin (Zocor) 20 mg PO BEDTIME [facility] Last Admin: 09/11/20 20:16 Dose: 20 mg Documented by: Sodium Chloride (Saline Flush) 10 ml FLUSH ASDIRECTED PRN PRN Reason: flush med Last Admin: 09/12/20 10:55 Dose: 10 ml Documented by: Discontinued Medications Enoxaparin Sodium (Lovenox) 30 mg SUBCUT Q24H [facility] Last Admin: 09/11/20 02:00 Dose: 30 mg Documented by: Sodium Chloride (Normal Saline) 1,000 mls @ 75 mls/hr IV ASDIRECTED [facility] Last Admin: 09/11/20 16:34 Dose: 75 mls/hr Documented by: Sodium Chloride (Normal Saline) 10 ml FLUSH ASDIRECTED [facility] - Exam General: Reports: Alert, Oriented, Cooperative, No Acute Distress Lungs: Reports: Clear to Auscultation (RLL), Normal Respiratory Effort, Crackles (fine crackles on left). Denies: Wheezing Cardiovascular: Reports: Regular Rate, Regular Rhythm GI/Abdominal Exam: Normal Bowel Sounds, Soft, Non-Tender, No Distention
[2020-09-12 11:21] VITALS: BP 158/84
== END 2020-09-12 13:00 | disposition home health service (06) ==
LOC: FB.ED → FB.MS 01:13
PROVIDERS: ADMIT Family Medicine; ATTEND Family Medicine
DX: E87.1 Hypo-osmolality and hyponatremia (principal); U07.1 COVID-19; J12.89 Other viral pneumonia; E11.9 Type 2 diabetes mellitus without complications; I10 Essential (primary) hypertension; E78.00 Pure hypercholesterolemia, unspecified; I11.0 Hypertensive heart disease with heart failure; I48.91 Unspecified atrial fibrillation; E03.9 Hypothyroidism, unspecified; F25.9 Schizoaffective disorder, unspecified; Z88.2 Allergy status to sulfonamides; Z79.899 Other long term (current) drug therapy; Z87.891 Personal history of nicotine dependence
CPT/HCPCS: 36415; 71045; 80048; 80053; 81001; 82962; 83605; 84484; 85025; 86140; 96365; 96366; 96372; 96376; 99284; A9270-GY; G0378; J0456; J0696; J1650; J7030; J7050

== ENCOUNTER 2021-08-01 20:47 | Emergency (ER) | payer MEDICARE ==
--- NOTE | 2021-08-01 21:01 | EDM.PDOC ---
ED HPI GENERAL MEDICAL PROBLEM - General Stated Complaint: FELL Time Seen by Provider: 08/01/21 20:57 Source of Information: Reports: Patient, Family History Limitations: Reports: No Limitations - History of Present Illness INITIAL COMMENTS - FREE TEXT/NARRATIVE: pt comes from home w her daughter, she had accidental fall 2 days ago , tripped while going to her bed and pumped her head on a corner table, she denies LOC and states has been feeling fine otherwise except for mild pain at back of her head, denies emesis or nausea or neck stifness or any other neuro sx, her daughter wanted her to be checked since she is on Xarelto. - Related Data Allergies Allergy/AdvReac Type Severity Reaction Status Date / Time Sulfa (Sulfonamide Allergy Cannot Verified 08/01/21 21:50 Antibiotics) Remember Home Meds: Home Meds Amitriptyline [Elavil] 10 mg PO BEDTIME 03/26/16 [History] ClomiPRAMINE [ClomiPRAMINE HCl] 25 mg PO BEDTIME 03/26/16 [History] ClomiPRAMINE [ClomiPRAMINE HCl] 50 mg PO BID 03/26/16 [History] Levothyroxine 25 mcg PO DAILY@0600 03/26/16 [History] Multivitamin [Daily Violeta] 1 tab PO DAILY@1200 03/26/16 [History] Simvastatin [Zocor] 20 mg PO BEDTIME 03/26/16 [History] SitaGLIPtin [Januvia] 25 mg PO DAILY #30 tablet 03/31/16 [Rx] Calcium Carbonate/Vitamin D3 [Calcium 600 + Vit D 200] 1 tab PO BIDMEALS 12/02 02/18 [History] Ciclopirox [Loprox 0.77% Crm] 1 applic TOP BID PRN 12/25/18 [History] Enalapril [Vasotec] 5 mg PO DAILY 12/25/18 [History] Fluocinolone Acetonide 1 applic TOP BID PRN 12/25/18 [History] Fluorometholone [Fluorometholone 0.1% Ophth Susp] 1 drop EYEBOTH DAILY 12/25/18 [History] Latanoprost [Xalatan 0.005% Ophth Soln] 1 drop EYEBOTH BEDTIME 12/25/18 [History] Potassium Chloride 10 meq PO DAILY 12/25/18 [History] Docusate Sodium/Sennosides [Senna Plus] 2 tab PO DAILY 09/11/20 [History] Ferrous Gluconate 324 mg PO DAILY 09/11/20 [History] Furosemide [Lasix] 40 mg PO DAILY 09/11/20 [History] Rivaroxaban [Xarelto] 20 mg PO WITHDINNER 09/11/20 [History] Azithromycin 500 mg PO DAILY 3 Days #3 tablet 09/12/20 [Rx] Cefdinir 300 mg PO BID 5 Days #10 capsule 09/12/20 [Rx] Past Medical History Cardiovascular History: Reports: Afib, Heart Failure, Heart Murmur, High Cholesterol, Hypertension, Other (See Below) Respiratory History: Reports: None Other Respiratory History: Covid-19 positive. Gastrointestinal History: Reports: Other (See Below) Other Gastrointestinal History: Colitis Genitourinary History: Reports: Urinary Incontinence [employer] History: Reports: Musculoskeletal History: Reports: Arthritis, Fracture Neurological History: Reports: TIA Psychiatric History: Reports: Depression Endocrine/Metabolic History: Reports: Diabetes, Type II, Hypothyroidism Dermatologic History: Reports: Eczema, Other (See Below) Other Dermatologic History: had for a long time - Infectious Disease History Infectious Disease History: Reports: Chicken Pox, Influenza, Measles - Past Surgical History HEENT Surgical History: Reports: Cataract Surgery Other HEENT Surgeries/Procedures: both eyes Cardiovascular Surgical History: Reports: None Female Surgical History: Reports: None Endocrine Surgical History: Reports: None Social & Family History - Family History Family Medical History: No Pertinent Family History - Caffeine Use Caffeine Use: Reports: Coffee Other Caffeine Use: 4 cups daily ED ROS GENERAL - Review of Systems Review Of Systems: See Below Constitutional: Reports: No Symptoms HEENT: Reports: No Symptoms Respiratory: Reports: No Symptoms Cardiovascular: Reports: No Symptoms GI/Abdominal: Reports: No Symptoms Musculoskeletal: Reports: No Symptoms Skin: Reports: No Symptoms Neurological: Reports: No Symptoms ED EXAM, GENERAL - Physical Exam Exam: See Below Exam Limited By: No Limitations General Appearance: Alert, No Apparent Distress Eye Exam: Bilateral Eye: Normal Inspection Ears: Normal Canal, Normal TMs Nose: Normal Inspection Throat/Mouth: Normal Oropharynx Head: Other (tender at occipital area, no hematoma. ) Neck: Normal Inspection, Supple Respiratory/Chest: No Respiratory Distress, Lungs Clear Cardiovascular: Normal Peripheral Pulses, Irregularly Irregular GI/Abdominal: Normal Bowel Sounds, No Distention Neurological: Alert, Oriented, CN II-XII Intact, No Motor/Sensory Deficits Course - Vital Signs Text/Narrative:: head CT shows no acute findings , supportive mng for soft tissue scalp contusion was explained, F/U prn. Last Recorded V/S: Last Vital Signs Temp 35.8 C L 08/01/21 21:00 Pulse 92 08/01/21 21:00 Resp 18 08/01/21 21:00 BP 152/72 H 08/01/21 21:00 Pulse Ox 98 08/01/21 21:00 - Orders/Labs/Meds Orders: Active Orders 24 hr Category Date Time Status Head wo Cont [CT] Stat Exams 08/01/21 21:01 Taken Departure - Departure Time of Disposition: 23:45 Disposition: Home, Self-Care 01 Clinical Impression: Head contusion - Discharge Information Instructions: Fall Prevention in the Home, Adult, [id number] Referrals: Deepa Landis PA [Primary Care Provider] - Forms: ED Department Discharge Sepsis Event Note (ED) - Focused Exam Vital Signs: Vital Signs Temp Pulse Resp BP Pulse Ox 08/01/21 21:00 35.8 C L 92 18 152/72 H 98 - My Orders Last 24 Hours: My Active Orders 08/01/21 21:01 Head wo Cont [CT] Stat - Assessment/Plan Last 24 Hours: My Active Orders 08/01/21 21:01 Head wo Cont [CT] Stat
[2021-08-01 21:56] VITALS: BP 152/72; PULSE 92
== END 2021-08-01 22:40 | disposition home or self-care (01) ==
LOC: FB.ED 20:47
DX: S00.83XA Contusion of other part of head, initial encounter (principal); I48.91 Unspecified atrial fibrillation; I11.0 Hypertensive heart disease with heart failure; I50.9 Heart failure, unspecified; E78.00 Pure hypercholesterolemia, unspecified; M19.90 Unspecified osteoarthritis, unspecified site; E11.9 Type 2 diabetes mellitus without complications; E03.9 Hypothyroidism, unspecified; Z88.2 Allergy status to sulfonamides; Z79.01 Long term (current) use of anticoagulants; Z79.899 Other long term (current) drug therapy; W01.198A Fall on same level from slipping, tripping and stumbling with subsequent striking against other object, initial encounter
CPT/HCPCS: 70450; 99283-25

== ENCOUNTER 2021-12-21 15:35 | Observation (INO) | payer MEDICARE ==
[2021-12-21] MEDS ORDERED: Furosemide 40 MG/4 ML VIAL IVPUSH SCH (16:45)
[2021-12-21] MEDS: RIVAROXABAN 20 MG PO SCH (17:48)
[2021-12-21] MEDS: Sodium Chloride 0.9% 10 ML Syringe FLUSH PRN (17:49)
[2021-12-21] MEDS: CLOMIPRAMINE 25 MG PO SCH (20:20)
[2021-12-21] MEDS: Simvastatin 20 MG Tab *PTOM PO SCH (20:20)
[2021-12-21] MEDS: Amitriptyline 10 MG Tab *PTOM PO SCH (20:21)
[2021-12-21] MEDS ORDERED: CLOMIPRAMINE 50 MG PO SCH (21:00)
[2021-12-22] MEDS ORDERED: hydrALAZINE 20 MG/ML SDV IVPUSH ONE (02:01)
[2021-12-22] MEDS: Sodium Chloride 0.9% 10 ML Syringe FLUSH PRN ×3 (02:17→20:48)
[2021-12-22] MEDS: Levothyroxine 25 MCG Tab *PTOM PO SCH (06:02)
[2021-12-22] MEDS: Potassium Chloride 10 MEQ Tab.ER *PTOM PO SCH (08:54)
[2021-12-22] MEDS: CLOMIPRAMINE 50 MG PO SCH ×2 (08:54→20:49)
[2021-12-22] MEDS: ENALAPRIL 5 MG PO SCH (08:55)
[2021-12-22] MEDS ORDERED: Polyethylene Glycol 3350 Powder 17 GM Packet PO PRN (09:00)
[2021-12-22] MEDS ORDERED: JANUVIA 25 MG PO SCH (09:00)
[2021-12-22] MEDS: Furosemide 40 MG/4 ML VIAL IVPUSH SCH ×2 (09:26→13:49)
[2021-12-22] MEDS ORDERED: Carboxymethylcellulose Sodium 0.5% Ophth Soln 15 ML Bottle *PTOM EYEBOTH PRN (13:00)
[2021-12-22] MEDS: PREDNISOLONE ACETATE 1% EYEBOTH SCH (13:47)
[2021-12-22] MEDS: RIVAROXABAN 20 MG PO SCH (17:35)
[2021-12-22] MEDS: CLOMIPRAMINE 25 MG PO SCH (20:51)
[2021-12-22] MEDS: Simvastatin 20 MG Tab *PTOM PO SCH (20:51)
[2021-12-22] MEDS ORDERED: Latanoprost 0.005% Ophth Soln 2.5 ML Bottle *PTOM EYEBOTH SCH (21:00)
[2021-12-22] MEDS ORDERED: Amitriptyline 10 MG Tab PO ONE (21:40)
[2021-12-22] MEDS: Amitriptyline 10 MG Tab *PTOM PO SCH (21:46)
[2021-12-23] MEDS: Levothyroxine 25 MCG Tab *PTOM PO SCH (06:00)
[2021-12-23 06:05] VITALS: BP 154/62; PULSE 78
[2021-12-23] MEDS: Potassium Chloride 10 MEQ Tab.ER *PTOM PO SCH (08:27)
[2021-12-23] MEDS: ENALAPRIL 5 MG PO SCH (08:28)
[2021-12-23] MEDS: CLOMIPRAMINE 50 MG PO SCH (08:28)
[2021-12-23] MEDS: PREDNISOLONE ACETATE 1% EYEBOTH SCH (08:28)
[2021-12-23] MEDS: Furosemide 40 MG/4 ML VIAL IVPUSH SCH (08:29)
[2021-12-23] MEDS: Sodium Chloride 0.9% 10 ML Syringe FLUSH PRN (08:29)
[2021-12-23] MEDS ORDERED: JANUVIA 25 MG PO SCH (09:00)
== END 2021-12-23 12:40 | disposition home health service (06) ==
LOC: FB.MS 15:41 → UNDOADMOB 15:41 → FB.MS 16:16
PROVIDERS: ADMIT Family Medicine; ATTEND Family Medicine
DX: I13.0 Hypertensive heart and chronic kidney disease with heart failure and stage 1 through stage 4 chronic kidney disease, or unspecified chronic kidney disease (principal); I50.32 Chronic diastolic (congestive) heart failure; E11.22 Type 2 diabetes mellitus with diabetic chronic kidney disease; N18.9 Chronic kidney disease, unspecified; E78.00 Pure hypercholesterolemia, unspecified; G30.9 Alzheimer's disease, unspecified; I48.11 Longstanding persistent atrial fibrillation; E03.9 Hypothyroidism, unspecified; E66.9 Obesity, unspecified; F25.9 Schizoaffective disorder, unspecified; F41.9 Anxiety disorder, unspecified; Z20.822 Contact with and (suspected) exposure to COVID-19; Z86.73 Personal history of transient ischemic attack (TIA), and cerebral infarction without residual deficits; Z79.890 Hormone replacement therapy; Z88.2 Allergy status to sulfonamides; Z79.899 Other long term (current) drug therapy
CPT/HCPCS: 36415; 80048; 80053; 83880; 93306; 96374; 96375; 96376; A9270-GY; G0378; G0379; J0360; J1940; U0002

== ENCOUNTER 2022-01-11 19:48 | Emergency (ER) | payer OTHER, MEDICARE ==
[2022-01-12 01:08] VITALS: BP 188/78; PULSE 80
== END 2022-01-11 21:30 | disposition home or self-care (01) ==
LOC: FB.ED 19:48
DX: S00.03XA Contusion of scalp, initial encounter (principal); I11.0 Hypertensive heart disease with heart failure; I50.9 Heart failure, unspecified; F41.9 Anxiety disorder, unspecified; F32.A Depression, unspecified; I48.91 Unspecified atrial fibrillation; E11.9 Type 2 diabetes mellitus without complications; E03.9 Hypothyroidism, unspecified; D64.9 Anemia, unspecified; Z79.899 Other long term (current) drug therapy; Z88.2 Allergy status to sulfonamides; W01.198A Fall on same level from slipping, tripping and stumbling with subsequent striking against other object, initial encounter
CPT/HCPCS: 70450; 99282; 99283-25

== ENCOUNTER 2022-01-12 19:08 | Emergency (ER) | payer MEDICARE ==
[2022-01-12 19:18] VITALS: BP 122/65; PULSE 72
[2022-01-12] MEDS ORDERED: Sodium Chloride 0.9% 10 ML Syringe FLUSH PRN (19:22)
[2022-01-12] MEDS ORDERED: Glucagon,Human Recombinant 1 MG Vial IVPUSH ONE (19:22)
== END 2022-01-12 21:00 | disposition home or self-care (01) ==
LOC: FB.ED 19:08
DX: T18.128A Food in esophagus causing other injury, initial encounter (principal); I13.0 Hypertensive heart and chronic kidney disease with heart failure and stage 1 through stage 4 chronic kidney disease, or unspecified chronic kidney disease; E11.22 Type 2 diabetes mellitus with diabetic chronic kidney disease; N18.9 Chronic kidney disease, unspecified; I50.9 Heart failure, unspecified; E78.00 Pure hypercholesterolemia, unspecified; E03.9 Hypothyroidism, unspecified; K21.9 Gastro-esophageal reflux disease without esophagitis; Z88.2 Allergy status to sulfonamides; Z79.899 Other long term (current) drug therapy; Z86.73 Personal history of transient ischemic attack (TIA), and cerebral infarction without residual deficits; Z68.38 Body mass index [BMI] 38.0-38.9, adult
CPT/HCPCS: 96374; 99283; 99283-25; J1610; J3490

== ENCOUNTER 2022-03-20 08:26 | Emergency (ER) | payer MEDICARE ==
[2022-03-20] MEDS ORDERED: cefTRIAXone 1 GM Vial IM ONE (09:15)
[2022-03-20 16:48] VITALS: BP 174/64; PULSE 70
== END 2022-03-20 10:10 | disposition home or self-care (01) ==
LOC: FB.ED 08:26
DX: N39.0 Urinary tract infection, site not specified (principal); S00.83XA Contusion of other part of head, initial encounter; H55.00 Unspecified nystagmus; H50.10 Unspecified exotropia; I48.91 Unspecified atrial fibrillation; E78.00 Pure hypercholesterolemia, unspecified; E11.22 Type 2 diabetes mellitus with diabetic chronic kidney disease; I13.0 Hypertensive heart and chronic kidney disease with heart failure and stage 1 through stage 4 chronic kidney disease, or unspecified chronic kidney disease; N18.9 Chronic kidney disease, unspecified; I50.9 Heart failure, unspecified; E03.9 Hypothyroidism, unspecified; K21.9 Gastro-esophageal reflux disease without esophagitis; Z86.73 Personal history of transient ischemic attack (TIA), and cerebral infarction without residual deficits; Z88.2 Allergy status to sulfonamides; Z79.01 Long term (current) use of anticoagulants; W18.09XA Striking against other object with subsequent fall, initial encounter
CPT/HCPCS: 70450; 96372; 99283; J0696

== ENCOUNTER 2022-04-17 08:15 | Emergency (ER) | payer MEDICARE, OTHER ==
[2022-04-17 08:34] VITALS: BP 144/57; PULSE 75
== END 2022-04-17 09:42 | disposition home or self-care (01) ==
LOC: FB.ED 08:15
DX: S00.03XA Contusion of scalp, initial encounter (principal); I11.0 Hypertensive heart disease with heart failure; I50.9 Heart failure, unspecified; E11.9 Type 2 diabetes mellitus without complications; Z88.2 Allergy status to sulfonamides; Z79.899 Other long term (current) drug therapy; Z86.16 Personal history of COVID-19; W01.10XA Fall on same level from slipping, tripping and stumbling with subsequent striking against unspecified object, initial encounter
CPT/HCPCS: 70450; 99283

== ENCOUNTER 2022-06-20 12:37 | Observation (INO) | payer MEDICARE, MEDICAID ==
[2022-06-20] MEDS ORDERED: Acetaminophen 500 MG Tab PO ONE (14:21)
[2022-06-20 15:55] LABS: ESTIMATED GFR 49 mL/min (>60)
[2022-06-20] MEDS ORDERED: Sodium Chloride 0.9% 1,000 ML IV SCH (16:30)
[2022-06-20] MEDS: Sodium Chloride 0.9% 10 ML Syringe FLUSH PRN (17:15)
[2022-06-20] MEDS ORDERED: RIVAROXABAN 20 MG PO SCH (18:00)
[2022-06-20] MEDS ORDERED: Simvastatin 20 MG Tab **OWN MED PO SCH (21:00)
[2022-06-20] MEDS ORDERED: CLOMIPRAMINE 25 MG PO SCH (21:00)
[2022-06-20] MEDS: CLOMIPRAMINE 50 MG PO SCH (21:44)
[2022-06-21] MEDS ORDERED: Levothyroxine 25 MCG Tab **OWN MED PO SCH ×2 (06:00→09:00)
[2022-06-21] MEDS: Acetaminophen 325 MG Tab PO PRN ×2 (06:48→12:01)
[2022-06-21] MEDS: Sodium Chloride 0.9% 10 ML Syringe FLUSH PRN (06:49)
[2022-06-21 06:52] LABS: ESTIMATED GFR 55 mL/min (>60)
[2022-06-21] MEDS ORDERED: FERROUS GLUCONATE 324 MG PO SCH (09:00)
[2022-06-21] MEDS ORDERED: SITAGLIPTIN 25 MG PO SCH (09:00)
[2022-06-21] MEDS ORDERED: Spironolactone 25 MG Tab *PTOM PO SCH (09:00)
[2022-06-21] MEDS ORDERED: ENALAPRIL 5 MG PO SCH (09:00)
[2022-06-21] MEDS ORDERED: Aspirin 81 MG Tab.EC *PTOM PO SCH (09:00)
[2022-06-21] MEDS ORDERED: Docusate Sodium/Sennosides 50-8.6 MG Tab *PTOM PO SCH (09:00)
[2022-06-21] MEDS ORDERED: Ondansetron 4 MG Tab.DIS PO PRN (09:21)
[2022-06-21] MEDS: CLOMIPRAMINE 50 MG PO SCH (09:45)
[2022-06-21 12:50] VITALS: BP 149/57; PULSE 79
[2022-06-21] MEDS ORDERED: Latanoprost 0.005% Ophth Soln 2.5 ML Bottle *PTOM EYEBOTH SCH (21:00)
== END 2022-06-21 14:50 | disposition home health service (06) ==
LOC: FB.ED 12:37 → FB.MS 13:53
PROVIDERS: ADMIT Family Medicine; ATTEND Family Medicine
DX: S00.03XA Contusion of scalp, initial encounter (principal); S09.90XA Unspecified injury of head, initial encounter; R29.6 Repeated falls; I48.91 Unspecified atrial fibrillation; E78.00 Pure hypercholesterolemia, unspecified; I13.0 Hypertensive heart and chronic kidney disease with heart failure and stage 1 through stage 4 chronic kidney disease, or unspecified chronic kidney disease; E11.22 Type 2 diabetes mellitus with diabetic chronic kidney disease; E03.9 Hypothyroidism, unspecified; N18.9 Chronic kidney disease, unspecified; F41.9 Anxiety disorder, unspecified; F32.A Depression, unspecified; I95.1 Orthostatic hypotension; E86.0 Dehydration; E87.1 Hypo-osmolality and hyponatremia; F25.9 Schizoaffective disorder, unspecified; I50.32 Chronic diastolic (congestive) heart failure; Z88.2 Allergy status to sulfonamides; Z86.16 Personal history of COVID-19; Z79.899 Other long term (current) drug therapy; Z79.82 Long term (current) use of aspirin; Z98.890 Other specified postprocedural states; Z87.891 Personal history of nicotine dependence; W19.XXXA Unspecified fall, initial encounter
CPT/HCPCS: 36415; 70450; 80048; 80053; 81001; 82947; 83735; 83880; 85027; 96360; 96361; 99285; A9270; G0378; J3490; J7030

== ENCOUNTER 2022-07-01 02:05 | Inpatient (IN) | payer MEDICARE ==
[2022-07-01 03:07] LABS: ESTIMATED GFR 40 mL/min (>60)
[2022-07-01] MEDS ORDERED: Acetaminophen 325 MG Tab PO PRN (03:53)
[2022-07-01] MEDS ORDERED: Sodium Chloride 0.9% 10 ML Syringe FLUSH PRN (03:53)
[2022-07-01] MEDS: Sodium Chloride 0.9% 250 ML IV SCH (05:37)
[2022-07-01] MEDS ORDERED: Pantoprazole 40 MG Vial IVPUSH ONE (07:58)
[2022-07-01] MEDS ORDERED: Furosemide 20 MG/2 ML VIAL IVPUSH ONE (08:30)
[2022-07-01] MEDS: DORZOLAMIDE HCL EYEBOTH SCH ×2 (09:34→20:28)
[2022-07-01] MEDS: SitaGLIPtin 25 MG Tab PO SCH (09:36)
[2022-07-01] MEDS: Enalapril 5 MG Tab PO SCH (09:38)
[2022-07-01] MEDS: FERROUS GLUCONATE 324 MG PO SCH (09:39)
[2022-07-01] MEDS: Levothyroxine 25 MCG Tab PO SCH (09:40)
[2022-07-01] MEDS ORDERED: Iopamidol 755 Mg/ML 100 ML Bottle IV ONE (14:45)
[2022-07-01] MEDS: Simvastatin 20 MG Tab PO SCH (20:27)
[2022-07-01] MEDS ORDERED: Latanoprost 0.005% Ophth Soln 2.5 ML Bottle EYEBOTH SCH (21:00)
[2022-07-02] MEDS: Levothyroxine 25 MCG Tab PO SCH (06:19)
[2022-07-02 06:51] LABS: ESTIMATED GFR 49 mL/min (>60)
[2022-07-02] MEDS: Enalapril 5 MG Tab PO SCH ×2 (10:09→10:59)
[2022-07-02] MEDS: Pantoprazole 40 MG Tab.CR PO SCH (10:22)
[2022-07-02] MEDS: Ferrous Sulfate 325 MG Tab PO SCH (10:23)
[2022-07-02] MEDS: Dorzolamide 2% Ophth Soln 10 ML Bottle EYEBOTH SCH ×2 (10:23→20:04)
[2022-07-02] MEDS: Sucralfate 1 GM Tab PO SCH ×3 (11:00→20:03)
[2022-07-02] MEDS: Sodium Chloride 0.9% 250 ML IV SCH (11:29)
[2022-07-02] MEDS ORDERED: Sodium Chloride 0.9% 250 ML IV SCH (15:15)
[2022-07-02] MEDS: DORZOLAMIDE HCL EYEBOTH SCH (18:57)
[2022-07-02] MEDS: FERROUS GLUCONATE 324 MG PO SCH (18:57)
[2022-07-02] MEDS: SitaGLIPtin 25 MG Tab PO SCH (18:57)
[2022-07-02] MEDS: Latanoprost 0.005% Ophth Soln 2.5 ML Bottle EYEBOTH SCH (20:04)
[2022-07-02] MEDS: Simvastatin 20 MG Tab PO SCH (20:05)
[2022-07-03 04:55] LABS: ESTIMATED GFR 63 mL/min (>60)
[2022-07-03] MEDS: Pantoprazole 40 MG Tab.CR PO SCH (06:07)
[2022-07-03] MEDS: Levothyroxine 25 MCG Tab PO SCH (06:07)
[2022-07-03] MEDS: Sucralfate 1 GM Tab PO SCH ×4 (06:57→20:30)
[2022-07-03] MEDS: Enalapril 5 MG Tab PO SCH (10:15)
[2022-07-03] MEDS: Ferrous Sulfate 325 MG Tab PO SCH (10:15)
[2022-07-03] MEDS: Dorzolamide 2% Ophth Soln 10 ML Bottle EYEBOTH SCH ×2 (10:17→20:32)
[2022-07-03] MEDS: Simvastatin 20 MG Tab PO SCH (20:32)
[2022-07-03] MEDS: Latanoprost 0.005% Ophth Soln 2.5 ML Bottle EYEBOTH SCH (20:32)
[2022-07-04] MEDS: Pantoprazole 40 MG Tab.CR PO SCH (05:10)
[2022-07-04] MEDS: Levothyroxine 25 MCG Tab PO SCH (05:11)
[2022-07-04] MEDS: Sucralfate 1 GM Tab PO SCH ×4 (06:31→20:38)
[2022-07-04] MEDS: Ferrous Sulfate 325 MG Tab PO SCH (09:59)
[2022-07-04] MEDS: Enalapril 5 MG Tab PO SCH (10:00)
[2022-07-04] MEDS: Dorzolamide 2% Ophth Soln 10 ML Bottle EYEBOTH SCH ×2 (10:02→20:39)
[2022-07-04 17:14] VITALS: BP 132/55; PULSE 75
[2022-07-04] MEDS: Simvastatin 20 MG Tab PO SCH (20:40)
[2022-07-04] MEDS: Latanoprost 0.005% Ophth Soln 2.5 ML Bottle EYEBOTH SCH (20:40)
== END 2022-07-05 11:07 | disposition home health service (06) | DRG 812 ==
LOC: FB.ED 02:05 → FB.MS 03:38 → OBSVTOIN 07-02 08:48
PROVIDERS: ADMIT Student in an Organized Health Care Education/Training Program; ATTEND Family Medicine
PROC: 30233N1 Transfusion of Nonautologous Red Blood Cells into Peripheral Vein, Percutaneous Approach (ICD-10-PCS; principal; 2022-07-01)
DX: D62 Acute posthemorrhagic anemia (principal); D64.9 Anemia, unspecified; K92.1 Melena; I48.11 Longstanding persistent atrial fibrillation; E87.1 Hypo-osmolality and hyponatremia; I13.0 Hypertensive heart and chronic kidney disease with heart failure and stage 1 through stage 4 chronic kidney disease, or unspecified chronic kidney disease; R53.1 Weakness; I50.32 Chronic diastolic (congestive) heart failure; W19.XXXA Unspecified fall, initial encounter; Z79.01 Long term (current) use of anticoagulants; F60.3 Borderline personality disorder; Z66 Do not resuscitate; R29.6 Repeated falls; F41.1 Generalized anxiety disorder; K21.9 Gastro-esophageal reflux disease without esophagitis; E78.5 Hyperlipidemia, unspecified; F32.A Depression, unspecified; I27.20 Pulmonary hypertension, unspecified; N18.9 Chronic kidney disease, unspecified; E11.22 Type 2 diabetes mellitus with diabetic chronic kidney disease; E03.9 Hypothyroidism, unspecified; G30.9 Alzheimer's disease, unspecified; K29.70 Gastritis, unspecified, without bleeding; F60.0 Paranoid personality disorder; K59.09 Other constipation; F02.80 Dementia in other diseases classified elsewhere, unspecified severity, without behavioral disturbance, psychotic disturbance, mood disturbance, and anxiety; M19.90 Unspecified osteoarthritis, unspecified site; Z86.73 Personal history of transient ischemic attack (TIA), and cerebral infarction without residual deficits; R32 Unspecified urinary incontinence; Z87.01 Personal history of pneumonia (recurrent); Z79.4 Long term (current) use of insulin; E78.00 Pure hypercholesterolemia, unspecified; Z98.42 Cataract extraction status, left eye; Z98.41 Cataract extraction status, right eye; Z98.890 Other specified postprocedural states; Z87.891 Personal history of nicotine dependence; W18.30XA Fall on same level, unspecified, initial encounter; Y92.89 Other specified places as the place of occurrence of the external cause; Z86.16 Personal history of COVID-19; Z88.2 Allergy status to sulfonamides; Z79.82 Long term (current) use of aspirin; Z79.899 Other long term (current) drug therapy; R10.32 Left lower quadrant pain; R79.9 Abnormal finding of blood chemistry, unspecified; Z51.5 Encounter for palliative care; E87.5 Hyperkalemia; E66.9 Obesity, unspecified; Z68.35 Body mass index [BMI] 35.0-35.9, adult; Z20.822 Contact with and (suspected) exposure to COVID-19
CPT/HCPCS: 36415 ×2; 36430; 71045; 71260; 74177; 76770; 80048; 80053; 82272; 85014 ×2; 85018 ×2; 85025 ×2; 86140; 86850; 86900; 86901; 86920 ×2; 86922 ×2; 96374; 96375; 99285; A9270 ×15; C9113; G0378 ×3; J1940; J7050; P9016 ×2; Q9967; U0002; 99284

== ENCOUNTER 2022-07-10 19:26 | Observation (INO) | payer MEDICARE, MEDICAID ==
[2022-07-10] MEDS ORDERED: Aspirin 81 MG Tab.Chew PO ONE (19:35)
[2022-07-10] MEDS ORDERED: Albuterol/Ipratropium 3.0-0.5 MG/3 ML Neb Soln NEB ONE (19:36)
[2022-07-10] MEDS ORDERED: Albuterol/Ipratropium 3.0-0.5 MG/3 ML Neb Soln ONE (19:37)
[2022-07-10 20:05] LABS: ESTIMATED GFR 49 mL/min (>60)
[2022-07-10 20:41] LABS: CORONAVIRUS COVID-19 NAA NEGATIVE (NEGATIVE)
[2022-07-10] MEDS ORDERED: Iopamidol 755 Mg/ML 75 ML Bottle IV ONE (20:55)
[2022-07-10] MEDS ORDERED: Furosemide 40 MG/4 ML VIAL IVPUSH ONE (22:19)
[2022-07-10] MEDS ORDERED: Albuterol 0.083% 2.5 MG/3 ML Neb Soln NEB PRN (22:19)
[2022-07-11] MEDS ORDERED: Ketorolac 30 MG/ML SDV ONE (01:32)
[2022-07-11 04:19] VITALS: BP 145/60; PULSE 79
[2022-07-11 06:47] LABS: ESTIMATED GFR 55 mL/min (>60)
[2022-07-11] MEDS ORDERED: Polyethylene Glycol 3350 Powder 17 GM Packet PO PRN (08:18)
[2022-07-11] MEDS ORDERED: Carboxymethylcellulose 0.5%/Glycerin 0.9% Ophth Soln 15 ML Bottle EYEBOTH PRN (08:18)
[2022-07-11] MEDS ORDERED: Acetaminophen 325 MG Tab PO PRN (08:18)
[2022-07-11] MEDS ORDERED: Non-Formulary Medication 1 Each (Cyclobenzaprine Hcl [Cyclobenzaprine Hcl] 5 MG Tablet) PO PRN (08:18)
[2022-07-11] MEDS ORDERED: CLOMIPRAMINE 50 MG PO SCH (09:00)
[2022-07-11] MEDS ORDERED: DORZOLAMIDE HCL EYEBOTH SCH (09:00)
[2022-07-11] MEDS ORDERED: Pantoprazole 40 MG Tab.CR PO SCH (09:00)
[2022-07-11] MEDS ORDERED: Sucralfate 1 GM Tab PO SCH (09:00)
[2022-07-11] MEDS ORDERED: Enalapril 5 MG Tab PO SCH (09:00)
[2022-07-11] MEDS ORDERED: Spironolactone 25 MG Tab PO SCH (09:00)
[2022-07-11] MEDS ORDERED: SitaGLIPtin 25 MG Tab PO SCH (09:00)
[2022-07-11] MEDS ORDERED: Furosemide 20 MG Tab PO SCH (09:00)
[2022-07-11] MEDS ORDERED: [UNRECOGNIZED DRUG - OTHER] EYEBOTH SCH (09:00)
[2022-07-11] MEDS ORDERED: Non-Formulary Medication 1 Each (Ferrous Gluconate [Ferrous Gluconate] 324 MG Tablet) PO SCH (09:00)
[2022-07-11] MEDS ORDERED: Furosemide 20 MG Tab ONE (15:50)
[2022-07-11] MEDS ORDERED: Acetaminophen 325 MG Tab ONE (16:06)
[2022-07-11] MEDS ORDERED: Latanoprost 0.005% Ophth Soln 2.5 ML Bottle EYEBOTH SCH (21:00)
[2022-07-12] MEDS ORDERED: Levothyroxine 25 MCG Tab PO SCH (06:00)
[2022-07-12 07:16] LABS: ESTIMATED GFR 63 mL/min (>60)
== END 2022-07-13 10:45 | disposition home health service (06) ==
LOC: FB.ED 19:26 → FB.MS 22:19 → FB.ZCENSUS 07-12 11:30
PROVIDERS: ADMIT Family Medicine; ATTEND Family Medicine
DX: I11.0 Hypertensive heart disease with heart failure (principal); I50.43 Acute on chronic combined systolic (congestive) and diastolic (congestive) heart failure; I48.0 Paroxysmal atrial fibrillation; E11.9 Type 2 diabetes mellitus without complications; E66.9 Obesity, unspecified; E87.1 Hypo-osmolality and hyponatremia; R53.1 Weakness; E78.00 Pure hypercholesterolemia, unspecified; E03.9 Hypothyroidism, unspecified; F41.9 Anxiety disorder, unspecified; D64.9 Anemia, unspecified; F25.9 Schizoaffective disorder, unspecified; Z88.2 Allergy status to sulfonamides; Z79.890 Hormone replacement therapy; Z79.899 Other long term (current) drug therapy; Z79.82 Long term (current) use of aspirin; Z86.16 Personal history of COVID-19; Z98.890 Other specified postprocedural states; Z20.822 Contact with and (suspected) exposure to COVID-19; Z68.34 Body mass index [BMI] 34.0-34.9, adult
CPT/HCPCS: 0241U; 36415; 71045; 71275; 80053; 83880; 84484; 85025; 85379; 93005; 94640; 99285; A9270; Q9967; J7620

== ENCOUNTER 2022-11-06 16:11 | Emergency (ER) | payer MEDICARE, MEDICAID ==
[2022-11-06 16:35] VITALS: BP 128/60; PULSE 66
[2022-11-06] MEDS ORDERED: Alum Hydroxide/Mag Hydroxide 15 ML, Lidocaine 2% 15 ML PO ONE ×2 (16:37)
[2022-11-06] MEDS ORDERED: Sucralfate 1 GM Tab PO ONE (16:45)
[2022-11-06] MEDS ORDERED: Ondansetron 4 MG Tab.DIS PO ONE (17:04)
== END 2022-11-06 17:50 | disposition home or self-care (01) ==
LOC: FB.ED 16:11
DX: K20.90 Esophagitis, unspecified without bleeding (principal); B00.1 Herpesviral vesicular dermatitis; F41.9 Anxiety disorder, unspecified; E66.9 Obesity, unspecified; I48.91 Unspecified atrial fibrillation; E78.00 Pure hypercholesterolemia, unspecified; K21.9 Gastro-esophageal reflux disease without esophagitis; I13.0 Hypertensive heart and chronic kidney disease with heart failure and stage 1 through stage 4 chronic kidney disease, or unspecified chronic kidney disease; E11.22 Type 2 diabetes mellitus with diabetic chronic kidney disease; N18.9 Chronic kidney disease, unspecified; I50.9 Heart failure, unspecified; M19.90 Unspecified osteoarthritis, unspecified site; G30.9 Alzheimer's disease, unspecified; F02.80 Dementia in other diseases classified elsewhere, unspecified severity, without behavioral disturbance, psychotic disturbance, mood disturbance, and anxiety; E03.9 Hypothyroidism, unspecified; Z68.35 Body mass index [BMI] 35.0-35.9, adult; Z51.5 Encounter for palliative care; Z88.2 Allergy status to sulfonamides; Z79.01 Long term (current) use of anticoagulants; Z79.82 Long term (current) use of aspirin; Z79.899 Other long term (current) drug therapy
CPT/HCPCS: 99282; 99283; A9270-GY; Q0162

== ENCOUNTER 2024-03-26 19:54 | Emergency (ER) | payer MEDICARE, MEDICAID ==
[2024-03-26] MEDS ORDERED: Ciprofloxacin 500 MG Tab PO ONE (19:55)
[2024-03-26 20:03] VITALS: BP 129/75
[2024-03-26 20:58] LABS: HEMATOCRIT 30.5 % (34.2-48.2); HEMOGLOBIN 9.5 g/dL (11.4-15.5); MEAN CORPUSCULAR HEMOGLOBIN 28.4 pg (23.9-33.9); MEAN CORPUSCULAR HGB CONC 31.2 g/dL (31.9-34.8); MEAN CORPUSCULAR VOLUME 91.1 fL (76.7-100.5); MEAN PLATELET VOLUME 8.1 fL (7.1-12.4); PLATELET COUNT,PLT 190 x10(3)uL (151-488); RED BLOOD CELL COUNT 3.35 x10(6)uL (3.60-5.20); RED CELL DISTRIBUTION WIDTH 17.2 % (12.3-16.5); WHITE BLOOD CELL COUNT,WBC 20.1 x10-3/uL (3.0-10.3)
[2024-03-26 21:01] LABS: BLOOD UREA NITROGEN,BUN 36 mg/dL (7-18); BUN/CREATININE RATIO 27.7 (9-20); CALCIUM 9.4 mg/dL (8.6-10.2); CARBON DIOXIDE,CO2 29 mmol/L (21-32); CHLORIDE,CL 96 mmol/L (100-110); CREATININE 1.3 mg/dL (0.55-1.02); EST CRCL DRUG DOSING (CG) 26.82 mL/min; ESTIMATED GFR 40 mL/min (>60); GLUCOSE RANDOM 124 mg/dL (80-116); POTASSIUM,K 4.3 mmol/L (3.5-5.3); SODIUM,NA 134 mmol/L (135-145)
[2024-03-26 21:06] LABS: A/G RATIO 0.7; ALANINE AMINOTRANSFERASE,ALT 19 U/L (12-36); ALKALINE PHOSPHATASE 108 IU/L (56-112); ASPARTATE AMNIOTRANSFERASE,AST 17 IU/L (5-25); BILIRUBIN TOTAL 0.7 mg/dL (0.1-1.3); PROTEIN TOTAL,TP 7.2 g/dL (6.0-8.0)
[2024-03-26 21:09] LABS: LACTIC ACID 0.6 mmol/L (0.4-2.0)
[2024-03-26 21:14] LABS: LYMPHOCYTES PERCENT MAN 2 % (13-37); MONOCYTES PERCENT MAN 3 % (4-12); SEG NEUTROPHILS PERCENT MAN 95 % (46-82); TROPONIN I 15.9 pg/mL (4.0-60.3)
[2024-03-26 21:16] LABS: ANISOCYTOSIS OCCASIONAL; POIKILOCYTOSIS OCCASIONAL
[2024-03-26] MEDS: Acetaminophen 500 MG Tab PO ONE (21:57)
[2024-03-26] MEDS: traMADol 50 MG Tab PO ONE (21:58)
[2024-03-26] MEDS: Sodium Chloride 0.9% 500 ML IV ONE (22:57)
[2024-03-27 00:35] LABS: BILIRUBIN,URINE NEGATIVE (NEGATIVE); GLUCOSE,URINE NORMAL (NORMAL); KETONES,URINE NEGATIVE (NEGATIVE); LEUKOCYTE ESTERASE,URINE LARGE (NEGATIVE); NITRITE,URINE NEGATIVE (NEGATIVE); OCCULT BLOOD,URINE LARGE (NEGATIVE); PROTEIN,URINE NEGATIVE (NEGATIVE); UROBILINOGEN,URINE NORMAL (NEGATIVE)
[2024-03-27 00:37] LABS: APPEARANCE,URINE SLIGHTLY CLOUDY (CLEAR); BACTERIA,URINE MODERATE (NS); COLOR,URINE YELLOW (YELLOW); MUCUS,URINE FEW (NS); RBC,URINE 30-40 (0-5); SQUAMOUS EPITHELIAL CELLS,UR FEW (NS,R,O)
[2024-03-27] MEDS: traMADol 50 MG Tab PO ONE (01:06)
[2024-03-27 01:20] VITALS: PULSE 74
== END 2024-03-27 01:15 ==
LOC: FB.ED 19:54
DX: N39.0 Urinary tract infection, site not specified (principal); E86.0 Dehydration; E87.1 Hypo-osmolality and hyponatremia; I48.91 Unspecified atrial fibrillation; I11.0 Hypertensive heart disease with heart failure; I50.9 Heart failure, unspecified; E78.00 Pure hypercholesterolemia, unspecified; K21.9 Gastro-esophageal reflux disease without esophagitis; E11.9 Type 2 diabetes mellitus without complications; E03.9 Hypothyroidism, unspecified; Z86.16 Personal history of COVID-19; Z79.899 Other long term (current) drug therapy; Z79.890 Hormone replacement therapy; Z88.2 Allergy status to sulfonamides
CPT/HCPCS: 36415; 71045; 80053; 81001; 83605; 83880; 84484; 85025; 87086; 87088; 87186; 93005; 93010; 96360; 99284; 99285-25; A9270-GY; J7040; U0002

== ENCOUNTER 2024-07-05 17:38 | Emergency (ER) | payer MEDICARE, MEDICAID ==
[2024-07-05 18:11] VITALS: PULSE 60
[2024-07-05 20:35] VITALS: BP 105/68
== END 2024-07-05 19:59 | disposition home or self-care (01) ==
LOC: FB.ED 17:38
DX: S09.90XA Unspecified injury of head, initial encounter (principal); I11.0 Hypertensive heart disease with heart failure; I50.9 Heart failure, unspecified; E78.00 Pure hypercholesterolemia, unspecified; K21.9 Gastro-esophageal reflux disease without esophagitis; M19.90 Unspecified osteoarthritis, unspecified site; E11.9 Type 2 diabetes mellitus without complications; E03.9 Hypothyroidism, unspecified; Z87.891 Personal history of nicotine dependence; Z86.16 Personal history of COVID-19; Z79.899 Other long term (current) drug therapy; Z79.891 Long term (current) use of opiate analgesic; Z79.890 Hormone replacement therapy; Z79.2 Long term (current) use of antibiotics; Z88.2 Allergy status to sulfonamides; W19.XXXA Unspecified fall, initial encounter
CPT/HCPCS: 70450; 99283

== ENCOUNTER 2024-09-26 13:04 | Emergency (ER) | payer MEDICARE, MEDICAID ==
[2024-09-26 13:19] VITALS: BP 112/45; PULSE 63
[2024-09-26 13:35] LABS: BLOOD UREA NITROGEN,BUN 56 mg/dL (7-18); CALCIUM 9.3 mg/dL (8.6-10.2); CARBON DIOXIDE,CO2 30 mmol/L (21-32); CHLORIDE,CL 103 mmol/L (100-110); CREATININE 1.6 mg/dL (0.55-1.02); ESTIMATED GFR 31 mL/min (>60); GLUCOSE RANDOM 84 mg/dL (80-116); POTASSIUM,K 4.9 mmol/L (3.5-5.3); SODIUM,NA 140 mmol/L (135-145)
== END 2024-09-26 14:28 ==
LOC: FB.ED 13:04
DX: E87.5 Hyperkalemia (principal); I48.91 Unspecified atrial fibrillation; I11.0 Hypertensive heart disease with heart failure; I50.9 Heart failure, unspecified; E78.00 Pure hypercholesterolemia, unspecified; K21.9 Gastro-esophageal reflux disease without esophagitis; E11.9 Type 2 diabetes mellitus without complications; E03.9 Hypothyroidism, unspecified; Z86.73 Personal history of transient ischemic attack (TIA), and cerebral infarction without residual deficits; Z86.16 Personal history of COVID-19; Z88.2 Allergy status to sulfonamides; Z79.51 Long term (current) use of inhaled steroids; Z79.01 Long term (current) use of anticoagulants; Z79.890 Hormone replacement therapy; Z79.899 Other long term (current) drug therapy
CPT/HCPCS: 36415; 80048; 99283; 99284

== ENCOUNTER 2024-10-08 21:57 | Emergency (ER) | payer MEDICARE, MEDICAID ==
[2024-10-08 22:26] LABS: HEMATOCRIT 28.9 % (34.2-48.2); HEMOGLOBIN 9.3 g/dL (11.4-15.5); MEAN CORPUSCULAR HEMOGLOBIN 30.6 pg (23.9-33.9); MEAN CORPUSCULAR HGB CONC 32.1 g/dL (31.9-34.8); MEAN CORPUSCULAR VOLUME 95.5 fL (76.7-100.5); MEAN PLATELET VOLUME 8.6 fL (7.1-12.4); PLATELET COUNT,PLT 176 x10(3)uL (151-488); RED BLOOD CELL COUNT 3.03 x10(6)uL (3.60-5.20); RED CELL DISTRIBUTION WIDTH 15.6 % (12.3-16.5); WHITE BLOOD CELL COUNT,WBC 18.2 x10-3/uL (3.0-10.3)
[2024-10-08 22:31] LABS: BLOOD UREA NITROGEN,BUN 69 mg/dL (7-18); BUN/CREATININE RATIO 38.3 (9-20); CALCIUM 9.7 mg/dL (8.6-10.2); CARBON DIOXIDE,CO2 30 mmol/L (21-32); CHLORIDE,CL 100 mmol/L (100-110); CREATININE 1.8 mg/dL (0.55-1.02); ESTIMATED GFR 27 mL/min (>60); GLUCOSE RANDOM 126 mg/dL (80-116); POTASSIUM,K 5.8 mmol/L (3.5-5.3); SODIUM,NA 137 mmol/L (135-145)
[2024-10-08 22:36] LABS: BASE EXCESS VENOUS,POC 4 mmol/L (-2 - 3+); PCO2 VENOUS,POC 67 mmHg (41-51); PH VENOUS,POC 7.29 pH Units (7.32-7.43)
[2024-10-08 22:37] LABS: A/G RATIO 0.9; ALANINE AMINOTRANSFERASE,ALT 19 U/L (12-36); ALBUMIN 3.6 g/dL (3.2-4.6); ALKALINE PHOSPHATASE 115 IU/L (56-112); ASPARTATE AMNIOTRANSFERASE,AST 18 IU/L (5-25); BILIRUBIN TOTAL 0.5 mg/dL (0.1-1.3); PROTEIN TOTAL,TP 7.5 g/dL (6.0-8.0)
[2024-10-08 22:43] LABS: LYMPHOCYTES PERCENT MAN 8 % (13-37); MONOCYTES PERCENT MAN 3 % (4-12); NRBC MANUAL 1 /100WBC (0-0); SEG NEUTROPHILS PERCENT MAN 89 % (46-82)
[2024-10-08] MEDS: Albuterol/Ipratropium 3.0-0.5 MG/3 ML Neb Soln NEB ONE (23:29)
[2024-10-08] MEDS: fentaNYL 100 MCG/2 ML SDV IVPUSH ONE (23:31)
[2024-10-08] MEDS ORDERED: Furosemide 40 MG/4 ML VIAL IVPUSH ONE (23:37)
[2024-10-09] MEDS: Morphine 4 MG/ML VIAL IVPUSH ONE (00:09)
[2024-10-09] MEDS: Iopamidol 755 Mg/ML 100 ML Bottle IV ONE (00:29)
[2024-10-09] MEDS: Sodium Chloride 0.9% 1,000 ML IV ONE (00:55)
[2024-10-09] MEDS: Dexamethasone 4 MG/ML SDV IVPUSH ONE (01:05)
[2024-10-09] MEDS: cefTRIAXone 1 GM in Sodium Chloride 0.9% 50 ML IV ONE (01:10)
[2024-10-09] MEDS: Furosemide 40 MG/4 ML VIAL IVPUSH ONE (01:15)
[2024-10-09] MEDS: Azithromycin 500 MG in Sodium Chloride 0.9% 250 ML IV ONE (01:25)
[2024-10-09] MEDS: LORazepam 2 MG/ML SDV IVPUSH ONE (03:26)
[2024-10-09 07:54] VITALS: BP 109/51; PULSE 82
[2024-10-09 09:08] LABS: HEMATOCRIT 26.7 % (34.2-48.2); HEMOGLOBIN 8.6 g/dL (11.4-15.5); MEAN CORPUSCULAR HEMOGLOBIN 31.1 pg (23.9-33.9); MEAN CORPUSCULAR HGB CONC 32.2 g/dL (31.9-34.8); MEAN CORPUSCULAR VOLUME 96.4 fL (76.7-100.5); MEAN PLATELET VOLUME 8.7 fL (7.1-12.4); PLATELET COUNT,PLT 153 x10(3)uL (151-488); RED BLOOD CELL COUNT 2.77 x10(6)uL (3.60-5.20); RED CELL DISTRIBUTION WIDTH 15.7 % (12.3-16.5); WHITE BLOOD CELL COUNT,WBC 19.9 x10-3/uL (3.0-10.3)
[2024-10-09 09:14] LABS: BLOOD UREA NITROGEN,BUN 65 mg/dL (7-18); BUN/CREATININE RATIO 38.2 (9-20); CALCIUM 9.4 mg/dL (8.6-10.2); CARBON DIOXIDE,CO2 29 mmol/L (21-32); CHLORIDE,CL 102 mmol/L (100-110); CREATININE 1.7 mg/dL (0.55-1.02); EST CRCL DRUG DOSING (CG) 20.13 mL/min; ESTIMATED GFR 29 mL/min (>60); GLUCOSE RANDOM 176 mg/dL (80-116); POTASSIUM,K 5.8 mmol/L (3.5-5.3); SODIUM,NA 139 mmol/L (135-145)
[2024-10-09 09:46] LABS: ANISOCYTOSIS FEW; BAND PERCENT MAN 3 % (0-6); HYPERSEGMENTED NEUTROPHILS MODERATE; LYMPHOCYTES PERCENT MAN 2 % (13-37); SEG NEUTROPHILS PERCENT MAN 95 % (46-82)
== END 2024-10-09 10:15 ==
LOC: FB.ED 21:57
DX: J18.9 Pneumonia, unspecified organism (principal); J96.10 Chronic respiratory failure, unspecified whether with hypoxia or hypercapnia; I11.0 Hypertensive heart disease with heart failure; I50.32 Chronic diastolic (congestive) heart failure; I44.7 Left bundle-branch block, unspecified; I48.91 Unspecified atrial fibrillation; E78.00 Pure hypercholesterolemia, unspecified; K21.9 Gastro-esophageal reflux disease without esophagitis; E11.9 Type 2 diabetes mellitus without complications; E03.9 Hypothyroidism, unspecified; Z86.73 Personal history of transient ischemic attack (TIA), and cerebral infarction without residual deficits; Z86.16 Personal history of COVID-19; Z88.2 Allergy status to sulfonamides; Z79.51 Long term (current) use of inhaled steroids; Z79.01 Long term (current) use of anticoagulants; Z79.890 Hormone replacement therapy; Z79.899 Other long term (current) drug therapy
CPT/HCPCS: 36415; 71045; 71275; 80048; 80053; 83880; 84484; 85025; 85379; 93005; 93010; 96361; 96365; 96375; 99285-25; 99291; 99292; J0456; J0696; J1100; J1940; J2060; J2270; J3010; J3490; J7030; J7050; J7620; Q9967